=== PATIENT | male | born 1935 | race Two or more races ===

== ENCOUNTER 2017-10-28 05:27 | Day surgery (SDC) | payer OTHER ==
[2017-10-20 13:43] VITALS: BMI 22.1
[2017-10-28] MEDS ORDERED: PROPOFOL 20 ML ONE ×4 (13:04)
[2017-10-28] MEDS ORDERED: LIDOCAINE HCL 2% JELLY (5 ML/TUBE) ONE (13:04)
[2017-10-28] MEDS ORDERED: MIDAZOLAM HCL 2 MG/2 ML SINGLE DOSE VIAL ONE (13:04)
[2017-10-28] MEDS ORDERED: HEPARIN NA (PORCINE) 5,000 UNITS/ML 1ML VIAL ONE (13:29)
--- NOTE | 2017-10-28 13:36 | HP ---
Satellite [facility] - Chief Complaint History of Present Illness: 82 year old man with chronic kidney disease. He had a basilic vein fistula created in the left arm in 2013 but never went on dialysis and never returned for follow-up. The fistula failed. he is now in need of AV access for worsening renal function. History Source: Patient, Medical Record - Past Medical History Allergies/Adverse Reactions: Allergies Allergy/AdvReac Type Severity Reaction Status Date / Time corn [[place]] Allergy "ITCHY ALL Verified 10/28/17 12:26 OVER" No Known Drug Allergies Allergy Verified 10/28/17 12:26 Cardiovascular: Yes: CAD, HTN Renal/: Yes: Renal Inusuff - Current Medications Current Medications: Home Medications Medication Instructions Recorded Amlodipine Besylate [Norvasc -] 10 mg PO DAILY 08/07/14 Furosemide [Lasix -] 20 mg PO DAILY 08/07/14 Losartan Potassium [Cozaar] 100 mg PO DAILY 08/07/14 Ranolazine [Ranexa] 500 mg PO BID 08/07/14 Simvastatin [Zocor -] 20 mg PO HS 08/07/14 Aspirin [ASA -] 325 mg PO DAILY 10/20/17 Insulin Glargine,Hum.rec.anlog 15 units SQ DAILY 10/20/17 [Lantus Solostar PEN (NF)] Lisinopril 10 mg PO DAILY 10/20/17 Satellite Physical Exam - Physical Examination Vital Signs: Vital Signs Period Temp Pulse Resp BP Sys/Parekh Pulse Ox Last 24 Hr 97.8 F 82 20 147/64 99 General Appearance: Well Developed, Alert & Oriented x3 ENT: Clear Lung: Clear to auscultation Heart: Regular rate & rhythm Abdomen: Soft Extremities: No edema Satellite Impression/Plan - Impression/Plan Impression: Renal failure. Operative Procedure: Placement AV graft left arm Date to be Performed: 10/28/17
[2017-10-28] MEDS ORDERED: LIDOCAINE HCL 1%, 10 MG/ML (20ML VIAL) ONE (13:55)
[2017-10-28] MEDS ORDERED: HEPARIN NA (PORCINE) 5,000 UNITS/ML 1ML VIAL SQ ONE (14:18)
[2017-10-28] MEDS ORDERED: ACETAMINOPHEN 325 MG TABLET (FP) PO PRN (15:50)
--- NOTE | 2017-10-28 15:50 | OP ---
Operative Note - Note: Operative Date: 10/28/17 Pre-Operative Diagnosis: Renal failure Operation: Placement AV graft left arm. Findings: Scarred axilla with small axillary vein. Implants: 4-7 mm Propaten Post-Operative Diagnosis: Same as Pre-op Surgeon: Singh Alvarenga Anesthesiologist/DIE INSPECTOR: Otis Moran Anesthesia: Fractional Estimated Blood Loss (mls): 50
[2017-10-28] MEDS ORDERED: ONDANSETRON 4 MG/2 ML VIAL IVPUSH PRN (15:56)
[2017-10-28] MEDS ORDERED: LACTATED RINGERS SOLUTION 1,000 ML IV SCH (16:00)
[2017-10-28 16:45] VITALS: TEMP 98.1
[2017-10-28 17:30] VITALS: BP 144/90; PULSE 76
--- NOTE | 2017-10-31 16:05 | OP ---
DATE OF OPERATION: 10/28/2017 PROCEDURE: Placement of arteriovenous fistula graft left arm. PREOPERATIVE DIAGNOSIS: Renal failure. POSTOPERATIVE DIAGNOSIS: Renal failure. ANESTHESIA: Fractional. ANESTHESIOLOGIST: Farrukh. FLAME CHANNELER: OPERATIVE FINDINGS: The left axillary vein was of small caliber with surrounding scar tissue from previous surgery. The axillary artery was normal caliber with good pulse. PROCEDURE IN DETAIL: Following routine patient identification with site and side verification, intravenous sedation was established. The left arm, chest wall and axilla were prepped with ChloraPrep. Xylocaine 1% was infiltrated in the left axilla through the old scar. The wound was opened with a longitudinal incision measuring approximately 3 cm. Subcutaneous tissues were divided using cautery for hemostasis. Deep dissection allowed identification of the axillary vein which was carefully dissected free. Side branches were ligated with silk ties and divided. The vein was encircled proximally and distally with Vesseloops. The adjacent axillary artery was then freed with care not to damage the median nerve. The artery was encircled with Vesseloops. Small side branches were ligated with silk ties and divided. A counter incision was then made proximal to the elbow on the anterior aspect of the arm after infiltrating lidocaine. A curved metal tunneler was passed on the medial and lateral aspects of the arm between the 2 incisions and a 4-7 mm Propaten graft was passed through the tunnel with care not to twist it. The axillary artery was then occluded with Vesseloops and open on its exposed surface with a 6-mm arteriotome. The small end of the graft was beveled and anastomosed to the side of the artery with running suture of 6-0 Prolene. Prior to completion of the suture line the artery was allowed to backbleed and flush and the graft was occluded with a clamp. The suture line was completed and the vessel was released. Bleeding from the suture line was controlled with Surgicel. The graft as allowed to fill with blood to make sure it was not kinked. It was reoccluded and drained of the blood. The vein was then occluded with a small bulldog clamp proximally and a Vesseloops distally. A longitudinal venotomy measuring approximately 15 mm was made. The vein was flushed with heparin solution. The end of the graft was beveled and anastomosed to the side of the vein with running suture of 6-0 Prolene. Prior to completion of the suture line, the graft was allowed to flush and the vein was allowed to backbleed and was flushed with heparin solution. Suture line was completed and all vessels were released. There was good flow through the graft with a palpable pulse in the graft. Surgicel was applied to the suture lines and when hemostasis was achieved, the wounds were irrigated and closed with interrupted suture of 3-0 Vicryl on the subcutaneous tissue and the skin with mateo. Sterile dressings were applied and the patient was taken to the recovery room in stable condition. YOSELIN ALFONSO M.D. [id number]
== END 2017-10-28 17:30 | disposition home or self-care (01) ==
LOC: JASU-SURG 05:27
PROVIDERS: ATTEND Surgery
PROC: 03160JD Bypass Left Axillary Artery to Upper Arm Vein with Synthetic Substitute, Open Approach (ICD-10-PCS; principal; 2017-10-28 13:00)
DX: I12.9 Hypertensive chronic kidney disease with stage 1 through stage 4 chronic kidney disease, or unspecified chronic kidney disease (principal)
CPT/HCPCS: 36415; 84132; 94760; J1644

== ENCOUNTER 2017-11-04 11:07 | Emergency (ER) | payer OTHER ==
[2017-11-04 11:29] VITALS: BMI 22.1
--- NOTE | 2017-11-04 13:17 | PDOC ---
History of Present Illness - General History Source: Patient Exam Limitations: No Limitations - History of Present Illness Initial Comments: 11/04/17 15:21 The patient is a 82 year old male, with a significant past medical history of hypertension, diabetes, ESRD, and anemia, who presents to the emergency department with left arm swelling and itching s/p left arm AV fistula surgery on 10/28/17. The patient reports his swelling began on 10/31/17, primarily from the distal LLE. He reports associated itching and tightness in the left arm. Patient has been on Oxycodone for pain management since the surgery. Patient reports several episodes of nausea and vomiting(nonbloody/nonbilious), today, but denies any abdominal pain, cp, diarrhea, or constipation. Patient states he has been unable to tolerate solids or fluids p.o. He denies any fever, chills, cough, headache, or dizziness. He denies any chest pain, shortness of breath, diaphoresis, or palpitations. He denies any recent trauma, travel, or sick contacts. Allergies: NKDA Past Surgical History: AV fistula placement, Hernia repair Social History: Former smoker. Former ETOH use. No recreational drug use. Surgeon: Dr. Alvarenga <Bernard Guzman - Last Filed: 11/04/17 16:35> <Shekhar Calvillo - Last Filed: 11/04/17 17:12> - General Chief Complaint: Nausea/Vomiting Stated Complaint: POST SURG/ VOMITING Time Seen by Provider: 11/04/17 12:55 Past History <Bernard Guzman - Last Filed: 11/04/17 16:35> - Past Medical History Anemia: Yes Asthma: No Cancer: No Cardiac Disorders: No CVA: No COPD: No CHF: No DVT: No Dementia: No Diabetes: Yes GI Disorders: Yes (ESRD) Disorders: No HTN: Yes Hypercholesterolemia: No Liver Disease: No Seizures: No Thyroid Disease: No - Surgical History Abdominal Surgery: Yes (HERNIA REPAIR) Appendectomy: No Cardiac Surgery: No Cholecystectomy: No Lung Surgery: No Neurologic Surgery: No Orthopedic Surgery: Yes - Immunization History Immunization Up to Date: Yes - Suicide/Smoking/Psychosocial Hx Smoking History: Former smoker Have you smoked in the past 12 months: No If you are a former smoker, when did you quit?: 1977 Information on smoking cessation initiated: No Hx Alcohol Use: No Drug/Substance Use Hx: No Substance Use Type: Alcohol Hx Substance Use Treatment: No <Shekhar Calvillo - Last Filed: 11/04/17 17:12> - Past Medical History Allergies/Adverse Reactions: Allergies Allergy/AdvReac Type Severity Reaction Status Date / Time corn [[place]] Allergy "ITCHY ALL Verified 11/04/17 11:25 OVER" No Known Drug Allergies Allergy Verified 11/04/17 11:25 Home Medications: Ambulatory Orders Amlodipine Besylate [Norvasc -] 10 mg PO DAILY 08/07/14 Furosemide [Lasix -] 20 mg PO DAILY 08/07/14 Losartan Potassium [Cozaar] 100 mg PO DAILY 08/07/14 Ranolazine [Ranexa] 500 mg PO BID 08/07/14 Simvastatin [Zocor -] 20 mg PO HS 08/07/14 Aspirin [ASA -] 325 mg PO DAILY 10/20/17 Insulin Glargine,Hum.rec.anlog [Lantus Solostar PEN (NF)] 15 units SQ DAILY 10/25 Lisinopril 10 mg PO DAILY 10/20/17 Oxycodone HCl/Acetaminophen [Percocet 5-325 mg Tablet] 1 tab PO Q6H PRN #16 tablet MDD 4 10/28/17 Review of Systems - Review of Systems Able to Perform ROS?: Yes Comments:: 11/04/17 15:21 CONSTITUTIONAL No reported: Fever, Chills, Diaphoresis, Generalized Weakness, Malaise, Loss of Appetite HEENT: No reported: Rhinorrhea, Nasal Congestion, Throat Pain, Throat Swelling, Difficulty Swallowing, Mouth Swelling, Ear Pain, Eye Pain, Visual Changes CARDIOVASCULAR: No reported: Chest Pain, Syncope, Palpitations, Irregular Heart Rate, Lightheadedness, Peripheral Edema RESPIRATORY: No reported: Cough, Shortness of Breath, SOB with Exertion, Orthopnea, Wheezing , Stridor, Hemoptysis GASTROINTESTINAL: Present: Nausea, Vomiting No reported: Abdominal pain, Abdominal Distension, Diarrhea, Constipation, Melena, Hematochezia GENITOURINARY: No reported: Dysuria, Frequency, Urgency, Hesitancy, Flank Pain, Genital Pain MUSCULOSKELETAL: Present: Left arm swelling/itching/tightness No reported: Myalgia, Arthralgia, Back pain, Neck Pain SKIN: Present: Left arm itching No reported: Rash, Pallor HEMEATOLOGIC/IMMUNOLOGIC: No reported: Easy Bleeding, Easy Bruising, Lymphadenopathy, Frequent infections ENDOCRINE: No reported: Unexplained Weight Gain, Unexplained Weight Loss, Heat Intolerance , Cold Intolerance <Guzman,Giomilsy - Last Filed: 11/04/17 16:35> *Physical Exam - Vital Signs Last Vital Signs Temp Pulse Resp BP Pulse Ox 97.4 F L 95 H 16 143/74 100 11/04/17 11:26 11/04/17 11:26 11/04/17 11:11/04/17 11:11/04/17 11:26 - Physical Exam Comments: 11/04/17 15:21 GENERAL: The patient is awake, alert, and fully oriented, Nontoxic - in no acute distress. HEAD: Normocephalic, atraumatic. EYES: extraocular movements intact, sclera anicteric, conjunctiva clear. ENT: Normal voice, Moist mucous membranes. NECK: Normal range of motion, supple LUNGS: Breath sounds equal, clear to auscultation bilaterally. No wheezes, no rhonchi, no rales. HEART: Regular rate and rhythm, normal S1 and S2 without murmur, rub or gallop. ABDOMEN: Soft, nontender, normoactive bowel sounds. No guarding, no rebound. EXTREMITIES: +1 edema in the LUE, pulses symmetric, no erythema or warmth, mateo in place in ac/fossa, thrill present in RUE, no pitting edema. NEUROLOGICAL: No facial assymetry, Normal speech, PSYCH: Normal mood, normal affect. SKIN: Warm, Dry, normal turgor, <Guzman,Giomilsy - Last Filed: 11/04/17 16:35> - Vital Signs Last Vital Signs Temp Pulse Resp BP Pulse Ox 97.4 F L 95 H 16 143/74 100 11/04/17 11:26 11/04/17 11:26 11/04/17 11:26 11/04/17 11:26 11/04/17 11:26 <Shekhar Calvillo - Last Filed: 11/04/17 17:12> Heart Score/ECG Review - ECG Impressions Comment:: 11/04/17 15:41 Twelve-lead EKG was performed and reviewed by me. There is normal sinus rhythm with a normal rate. rate of 86 The intervals are normal. Nonspecific intraventricular block <Shekhar Calvillo - Last Filed: 11/04/17 17:12> ED Treatment Course - LABORATORY CBC & Chemistry Diagram: 11/04/17 13:56 11/04/17 13:56 - ADDITIONAL ORDERS Additional order review: Laboratory Results 11/04/17 13:56 Sodium 136 Potassium 5.2 H Chloride 103 Carbon Dioxide 20 L Anion Gap 13 BUN 76 H D Creatinine 7.5 H* Creat Clearance w eGFR 7.01 Random Glucose 204 H D Calcium 8.5 Phosphorus 4.7 Magnesium 2.2 Total Bilirubin 0.4 D AST 12 L D ALT 10 L Alkaline Phosphatase 89 Total Protein 6.7 Albumin 2.9 L 11/04/17 13:56 RBC 2.71 L MCV 96.1 H MCHC 32.1 RDW 13.0 MPV 8.4 Neutrophils % 85.7 H D Lymphocytes % 6.1 L D Monocytes % 7.5 Eosinophils % 0.1 D Basophils % 0.6 - RADIOLOGY Radiograph Interpretation: 11/04/17 16:35 EXAM: US Duplex Vascular US-1 arm(left) INTERPRETED BY: Dr. Ballard REVIEWED BY: Dr. Calvillo IMPRESSION: Nonocclusive thrombus within the left brachial vein. Please see discussion- Nonocclusive thrombus is identified within the brachial vein. Minimal flow is seen within this vessel. The internal jugular, subclavian, axillary, radial and ulnar veins are patent. There is a patent AV dialysis graft present within the forearm. EXAM: CXR INTERPRETED BY: Dr. Rogers REVIEWED BY: Dr. Calvillo IMPRESSION: The cardiac silhouettes within normal limits in size with mild unfolding of the aortic arch. Mild elevation of the right hemidiaphragm. The lung is clear. Mediastinum is osseous structures appear intact. There are multiple surgical metallic clips in the left axilla and arm as well as in the left upper abdomen - Medications Given in the ED: ED Medications Discontinued Medications Generic Name Dose Route Start Last Admin Trade Name Freq PRN Reason Stop Dose Admin Ondansetron HCl 4 mg 11/04/17 13:21 11/04/17 13:56 Zofran Injection IVPB 11/04/17 13:22 4 mg ONCE ONE Administration <Bernard Guzman - Last Filed: 11/04/17 16:35> - LABORATORY CBC & Chemistry Diagram: 11/04/17 13:56 11/04/17 13:56 <Shekhar Calvillo - Last Filed: 11/04/17 17:12> Medical Decision Making - Medical Decision Making 11/04/17 16:39 Multiple calls placed to Dr. Alvarenga's office/service at 16:20, 16:30, and 16 :35 with no response. First call placed to Dr. Petty at 16:36. Awaiting call back. Case discussed with Dr. Petty at 16:37. <Bernard Guzman - Last Filed: 11/04/17 16:35> - Medical Decision Making 11/04/17 13:33 82y F hx of dm, htn, presents with arm swelling s/p new fistula placed by dr. alvarenga last thursday (next fu is 11/10). pt also complaining of nausea/ vomiting x 5 nbnb, last episode was 30 min ago. denies any f/c, dirarhea, cp, sob, cough, hemoptysis, leg swelling. On exam the patient appears well, in no acute distress Patient does have +1 edema in the distal left arm, with no signs of infection Patient is otherwise has a normal exam with no signs of fluid overload, tingling edema, lungs are clear normal cardiac exam. Differential for the patient's swelling includes postsurgical edema, DVT Will obtain ultrasound to rule out DVT Will obtain blood work to rule out metabolic derangements, uremia as a cause of the patient's nausea EKG to screen for hyperkalemia, acute coronary syndrome however this is unlikely due to the patient's lack of respiratory cardiac complaints. 11/04/17 14:08 A portion of this note was documented by scribe services under my direction. I have reviewed the details of the note, within reason, and agree with the documentation with the following case summary and management plan written by me 11/04/17 15:46 the pts labs were reviewed K stable from 10/28 Cr and BUn slightly elevated from previously case dw dr. arriaga - states if pt feels well, and asypmtomatic can fu as outpatient next week but if he is persistently nausueswe will keep him for dialysis 11/04/17 16:25 pts US noted for nonoclusive thrombus in the bracial vein with minimal flow karlos notify dr. Alvarenga 11/04/17 16:57 dr. petty covering for dr. alvarenga - here seeing the pt bedside - will discuss with dr. cline regarding whether to treat nonocclusive thrombus 11/04/17 17:[address] salas - states pt has known thrombosed graft, susupects this is related - proximal is patent, will recommend no a/c and erquetss fu with dr. alvarenga as sceduled next week. I discussed the physical exam findings, ancillary test results and final diagnoses with the patient. I answered all of the patient's questions. The patient was satisfied with the care received and felt comfortable with the discharge plan and treatment plan. The patient will call their primary care physician within 24 hours to arrange follow-up and will return to the Emergency Department with any new, persistent or worsening symptoms. <Shekhar Calvillo - Last Filed: 11/04/17 17:12> *DC/Admit/Observation/Transfer - Attestations Scribe Attestion: 11/04/17 15:21 Documentation prepared by Bernard Guzman, acting as medical lab technologist for Shekhar Calvillo MD. <Bernard Guzman - Last Filed: 11/04/17 16:35> - Discharge Dispostion Admit: No <Shekhar Calvillo - Last Filed: 11/04/17 17:12> Diagnosis at time of Disposition: Postoperative non-occlusive thrombus Chronic kidney disease Qualifiers: Chronic kidney disease stage: unspecified stage Qualified Code(s): N18.9 - Chronic kidney disease, unspecified - Discharge Dispostion Disposition: HOME Condition at time of disposition: Improved - Referrals Referrals: Singh Alvarenga MD [Staff Physician] - Ciro Arriaga MD [Staff Physician] - - Patient Instructions Printed Discharge Instructions: DI for Deep Vein Thrombosis Additional Instructions: Return to the emergency department immediately with ANY new, persistent or worsening symptoms including worsening swelling of your arm, numbness/tingling/ weakness, shortness of breath, chest pain increased pain or other concerns. Please see Dr. Alvarenga as scheduled next week. Dr. Giles office will call ou to schedule a visit for next week. You MUST call and follow up with your doctor tomorrow for further evaluation of your symptoms. Results were discussed with you. Please make sure your doctor reviews the results of your emergency evaluation. Print Language: POLISH
[2017-11-04] MEDS ORDERED: ONDANSETRON 4 MG/2 ML VIAL IVPB ONE (13:21)
[2017-11-04] MEDS ORDERED: ONDANSETRON 4 MG/2 ML VIAL ONE (13:51)
[2017-11-04 14:08] LABS: BASO # 0.1 #; BASO % 0.6 % (0-2.0); EOS % 0.1 % (0-4.5); LYMPH # 0.7; MCH 30.9 pg (25.7-33.7); MCHC 32.1 g/dl (32.0-35.9); MEAN CELL VOLUME 96.1 fl (80-96); MEAN PLT VOLUME 8.4 fl (7.5-11.1); MONO # 0.8 #; NEUT # 9.5 #; NEUT % 85.7 % (42.8-82.8); PLATELET COUNT 411 K/MM3 (134-434)
[2017-11-04 14:31] LABS: ALBUMIN 2.9 g/dl (3.4-5.0); ANION GAP 13 (8-16); BILIRUBIN,TOTAL 0.4 mg/dL (0.2-1.0); CALCIUM 8.5 mg/dL (8.5-10.1); CO2 20 mmol/L (21-32); GLUCOSE,RANDOM 204 mg/dL (74-106); MAGNESIUM 2.2 mg/dL (1.8-2.4); PHOSPHOROUS 4.7 mg/dL (2.5-4.9); SGOT/AST 12 U/L (15-37); SGPT/ALT 10 U/L (12-78); TOT PROT 6.7 g/dl (6.4-8.2)
[2017-11-04 14:37] LABS: ALK PHOS 89 U/L (45-117)
[2017-11-04 15:06] LABS: CREATININE 7.5 mg/dL (0.7-1.3)
[2017-11-04 17:00] VITALS: BP 163/75; PULSE 80; TEMP 98.7
--- NOTE | 2017-11-04 17:12 | PN ---
Progress Note (short form) - Note Progress Note: Vascular Surgery Pt seen and examined. AVG placement 10/28 Good bruit and thrill. Pt has swelling of left arm. Could be from central vein stenosis. Ultrasound shows patent avg with good outflow. There is a non occlusive thrombus in brachial vein, prob from old thrombosed basilic vein fistula. Pt will follow up with dr. springer on thursday for staple removal. Berry Garcia DO
--- NOTE | 2017-11-05 13:07 | EKG ---
Test Reason : Blood Pressure : / mmHG Vent. Rate : 086 BPM Atrial Rate : 086 BPM P-R Int : 166 ms QRS Dur : 126 ms QT Int : 388 ms P-R-T Axes : 046 -26 069 degrees QTc Int : 464 ms NORMAL SINUS RHYTHM NON-SPECIFIC INTRA-VENTRICULAR CONDUCTION BLOCK ABNORMAL ECG WHEN COMPARED WITH ECG OF 20-OCT-2017 14:15, NON-SPECIFIC CHANGE IN ST SEGMENT IN INFERIOR LEADS Confirmed by NICK VELIZ, ANNAMARIA ([id number]) on 11/05/2017 1:07:26 PM Referred By: Confirmed By:ANNAMARIA ROMERO MD
== END 2017-11-04 17:36 | disposition home or self-care (01) ==
LOC: JER 11:07
DX: T82.868A Thrombosis due to vascular prosthetic devices, implants and grafts, initial encounter (principal); I82.622 Acute embolism and thrombosis of deep veins of left upper extremity; I12.0 Hypertensive chronic kidney disease with stage 5 chronic kidney disease or end stage renal disease; E11.22 Type 2 diabetes mellitus with diabetic chronic kidney disease; N18.6 End stage renal disease; N17.8 Other acute kidney failure; Z79.84 Long term (current) use of oral hypoglycemic drugs
CPT/HCPCS: 36415; 71010-TC; 80053; 83735; 84100; 85025; 93005; 93010; 93971; 99284-25

== ENCOUNTER 2017-11-25 13:47 | Inpatient (IN) | payer OTHER ==
[2017-11-25 14:02] VITALS: BMI 22.6
--- NOTE | 2017-11-25 20:09 | PDOC ---
History of Present Illness - General Chief Complaint: Revisit, Lab Variance Stated Complaint: PCP SENT Time Seen by Provider: 11/25/17 20:01 - History of Present Illness Initial Comments: 11/25/17 20:08 CHIEF COMPLAINT: admit for dialysis tomorrow per Dr. García HISTORY OF PRESENT ILLNESS: 82 yo M with PMH of HTN, diabetes, ESRD, and anemia sent in by patient care associate MD Shiloh Brand for admission due to JOAN on CKD. Patient is to be admitted for dialysis beginning tomorrow morning. Patient currently denies any symptoms but reports that "I have this on my arm", referring to a fistula that was placed last month. He denies any pain to the site of fistula. PAST MEDICAL HISTORY: Denies past medical history FAMILY HISTORY: Denies SOCIAL HISTORY: Denies tobacco, alcohol, illicit drug use. SURGICAL HISTORY: Denies PCP: Flip Hanna ALLERGIES: No known drug allergies REVIEW OF SYSTEMS General/Constitutional: Denies fever or chills. Denies weakness, weight change. HEENT: Denies change in vision. Denies ear pain or discharge. Denies sore throat. Cardiovascular: Denies chest pain or shortness of breath. Respiratory: Denies cough, wheezing, or hemoptysis. Gastrointestinal: Denies nausea, vomiting, diarrhea or constipation. Denies rectal bleeding. Genitourinary: Denies dysuria, frequency, or change in urination. Musculoskeletal: Denies joint or muscle swelling or pain. Denies neck or back pain. Skin: Denies rash or easy bruising. Neurologic: Denies headache, vertigo, loss of consciousness, or loss of sensation. PHYSICAL EXAM General Appearance: Well-appearing, appropriately dressed. No apparent distress , no intoxication. HEENT: EOMI, PERRLA, normal ENT inspection, normal voice, TMs normal, pharynx normal. No conjunctival pallor. No photophobia, scleral icterus. Neck: Supple. Trachea midline. No tenderness, rigidity, carotid bruit, stridor , lymphadenopathy, or thyromegaly. Respiratory/Chest: Lungs CTAB. No shortness of breath, chest tenderness, respiratory distress, accessory muscle use. No crackles, rales, rhonchi, stridor , wheezing, dullness Cardiovascular: RRR. S1, S2. Vascular Pulses: Dorsalis-Pedis (R): 2+, Dorsalis-Pedis (L): 2+ Gastrointestinal/Abdominal: Normal bowel sounds. Abdomen soft, non-distended. No tenderness or rebound tenderness. No organomegaly, pulsatile mass, guarding , hernia, hepatomegaly, splenomegaly. Musculoskeletal/Extremities: L brachial AV fistula, no swelling or tenderness. Normal inspection. FROM of all extremities, normal capillary refill. Pelvis Stable. No CVA tenderness. No tenderness to extremities, pedal edema, swelling , erythema or deformity. Integumentary: Appropriate color, dry, warm. No cyanosis, erythema, jaundice or rash Neurologic: machine container washer II-XII intact. Fully oriented, alert. Appropriate mood/affect. Motor strength 5/5. No appreciable EOM palsy, facial droop or sensory deficit. Past History - Past Medical History Allergies/Adverse Reactions: Allergies Allergy/AdvReac Type Severity Reaction Status Date / Time corn [[place]] Allergy "ITCHY ALL Verified 11/25/17 14:02 OVER" No Known Drug Allergies Allergy Verified 11/25/17 14:02 Home Medications: Ambulatory Orders Amlodipine Besylate [Norvasc -] 10 mg PO DAILY 08/07/14 Furosemide [Lasix -] 20 mg PO DAILY 08/07/14 Losartan Potassium [Cozaar] 100 mg PO DAILY 08/07/14 Ranolazine [Ranexa] 500 mg PO BID 08/07/14 Simvastatin [Zocor -] 20 mg PO HS 08/07/14 Aspirin [ASA -] 325 mg PO DAILY 10/20/17 Insulin Glargine,Hum.rec.anlog [Lantus Solostar PEN (NF)] 15 units SQ DAILY 10/25 Lisinopril 10 mg PO DAILY 10/20/17 Oxycodone HCl/Acetaminophen [Percocet 5-325 mg Tablet] 1 tab PO Q6H PRN #16 tablet MDD 4 10/28/17 Anemia: Yes Asthma: No Cancer: No Cardiac Disorders: No CVA: No COPD: No CHF: No DVT: No Dementia: No Diabetes: Yes GI Disorders: Yes (ESRD) Disorders: No HTN: Yes Hypercholesterolemia: No Liver Disease: No Seizures: No Thyroid Disease: No - Surgical History Abdominal Surgery: Yes (HERNIA REPAIR) Appendectomy: No Cardiac Surgery: No Cholecystectomy: No Lung Surgery: No Neurologic Surgery: No Orthopedic Surgery: Yes - Immunization History Immunization Up to Date: Yes - Suicide/Smoking/Psychosocial Hx Smoking History: Former smoker Have you smoked in the past 12 months: No If you are a former smoker, when did you quit?: 25 YRS Information on smoking cessation initiated: No Hx Alcohol Use: No Drug/Substance Use Hx: No Substance Use Type: None Hx Substance Use Treatment: No *Physical Exam - Vital Signs Last Vital Signs Temp Pulse Resp BP Pulse Ox 98.3 F 77 20 141/56 100 11/25/17 13:59 11/25/17 13:59 11/25/17 13:59 11/25/17 13:59 11/25/17 13:59 ED Treatment Course - LABORATORY CBC & Chemistry Diagram: 11/25/17 23:20 11/25/17 23:20 Medical Decision Making - Medical Decision Making 11/25/17 20:27 82 yo M with PMH of HTN, diabetes, ESRD, and anemia sent in by patient care associate MD Shiloh Brand for admission to start dialysis tomorrow morning. -cbc, cmp -ekg *DC/Admit/Observation/Transfer Diagnosis at time of Disposition: ESRD (end stage renal disease) - Discharge Dispostion Condition at time of disposition: Stable Admit: Yes - Referrals - Patient Instructions - Post Discharge Activity
--- NOTE | 2017-11-25 20:12 | PDOC ---
*Physical Exam - Vital Signs Last Vital Signs Temp Pulse Resp BP Pulse Ox 98.3 F 77 20 141/56 100 11/25/17 13:59 11/25/17 13:59 11/25/17 13:59 11/25/17 13:59 11/25/17 13:59 ED Treatment Course - LABORATORY CBC & Chemistry Diagram: 11/26/17 11:50 11/26/17 11:50 Medical Decision Making - Medical Decision Making 11/25/17 20:11 agree with care from YOLANDE Godoy *DC/Admit/Observation/Transfer Diagnosis at time of Disposition: ESRD (end stage renal disease) - Discharge Dispostion Condition at time of disposition: Stable - Referrals - Patient Instructions - Post Discharge Activity
[2017-11-25 23:30] LABS: BASO % 1.1 % (0-2.0); EOS % 3.4 % (0-4.5); HEMOGLOBIN 8.5 GM/dL (11.7-16.9); LYMPH % 19.8 % (8-40); MCH 32.4 pg (25.7-33.7); MCHC 32.8 g/dl (32.0-35.9); MEAN CELL VOLUME 98.6 fl (80-96); MEAN PLT VOLUME 9.7 fl (7.5-11.1); MONO % 13.6 % (3.8-10.2); NEUT % 62.1 % (42.8-82.8); PLATELET COUNT 322 K/MM3 (134-434); RBC 2.63 M/mm3 (4.00-5.60); RDW 13.3 % (11.9-15.9); WHITE BLOOD COUNT 9.9 K/mm3 (4.0-10.0)
[2017-11-26 00:03] LABS: ALBUMIN 3.2 g/dl (3.4-5.0); ANION GAP 9 (8-16); BILIRUBIN,TOTAL 0.5 mg/dL (0.2-1.0); BLOOD UREA NITROGEN 57 mg/dL (7-18); CALCIUM 8.3 mg/dL (8.5-10.1); CHLORIDE 105 mmol/L (98-107); CO2 23 mmol/L (21-32); GLUCOSE,RANDOM 171 mg/dL (74-106); POTASSIUM 5.1 mmol/L (3.5-5.1); SGOT/AST 10 U/L (15-37); SGPT/ALT 14 U/L (12-78); SODIUM 137 mmol/L (136-145); TOT PROT 7.1 g/dl (6.4-8.2)
[2017-11-26 00:09] LABS: ALK PHOS 94 U/L (45-117)
[2017-11-26 00:11] LABS: CREATININE 7.6 mg/dL (0.7-1.3)
--- NOTE | 2017-11-26 02:51 | HP ---
CHIEF COMPLAINT: sent by secretary office clerk for HD tomorrow PCP: Dr. Flip Hanna HISTORY OF PRESENT ILLNESS: Pt is an 82 y/o M poor historian with PMH DM, ESRD, anemia, HTN, and kidney surgery (pt does not know what was done) who was sent to ED by secretary office clerk for admission to have HD tomorrow. Pt states he has never had HD before, but he has an AV fistula in the left arm. Per records, pt had a Library Assistant of 7.5 in Oct. Pt states he does make urine. Pt has no complaints at this time. Denies headache, nausea, vomiting, diarrhea, fever, chills, swelling, cough, dizziness. ER course was notable for: (1) Hb 8.5, Library Assistant 7.6, Hep panel pending (2) EKG with LAFB, delayed R wave transition, and widened QRS (3) Recent Travel: [place] PAST MEDICAL HISTORY: DM, ESRD, anemia, HTN PAST SURGICAL HISTORY: L AV fistula. horizontal surgical scar at neck, ? thyroid procedure, abdominal laparotomy scar, ? laparoscopy scars. Pt unable to provide history of surgeries Social History: Smokin cig/d from 21 y/o. quit in 1977 Alcohol: 3 glasses of wine/d once weekly Drugs: denies Family History: denies Allergies corn [Java] Allergy (Verified 11/25/17 14:02) "ITCHY ALL OVER" CORN No Known Drug Allergies Allergy (Verified 11/25/17 14:02) HOME MEDICATIONS: Home Medications Medication Instructions Recorded Amlodipine Besylate [Norvasc -] 10 mg PO DAILY 08/07/14 Furosemide [Lasix -] 20 mg PO DAILY 08/07/14 Losartan Potassium [Cozaar] 100 mg PO DAILY 08/07/14 Ranolazine [Ranexa] 500 mg PO BID 08/07/14 Simvastatin [Zocor -] 20 mg PO HS 08/07/14 Aspirin [ASA -] 325 mg PO DAILY 10/20/17 Insulin Glargine,Hum.rec.anlog 15 units SQ DAILY 10/20/17 [Lantus Solostar PEN (NF)] Lisinopril 10 mg PO DAILY 10/20/17 Oxycodone HCl/Acetaminophen 1 tab PO Q6H PRN #16 tablet MDD 4 10/28/17 [Percocet 5-325 mg Tablet] REVIEW OF SYSTEMS CONSTITUTIONAL: Absent: fever, chills, diaphoresis, generalized weakness, malaise, loss of appetite, weight change HEENT: Absent: rhinorrhea, nasal congestion, throat pain, throat swelling, difficulty swallowing, mouth swelling, ear pain, eye pain, visual changes CARDIOVASCULAR: Absent: chest pain, syncope, palpitations, irregular heart rate, lightheadedness , peripheral edema RESPIRATORY: Absent: cough, shortness of breath, dyspnea with exertion, orthopnea, wheezing, stridor, hemoptysis GASTROINTESTINAL: Absent: abdominal pain, abdominal distension, nausea, vomiting, diarrhea, constipation, melena, hematochezia GENITOURINARY: Absent: dysuria, frequency, urgency, hesitancy, hematuria, flank pain, genital pain MUSCULOSKELETAL: Absent: myalgia, arthralgia, joint swelling, back pain, neck pain SKIN: Absent: rash, itching, pallor HEMATOLOGIC/IMMUNOLOGIC: Absent: easy bleeding, easy bruising, lymphadenopathy, frequent infections ENDOCRINE: Absent: unexplained weight gain, unexplained weight loss, heat intolerance, cold intolerance NEUROLOGIC: Absent: headache, focal weakness or paresthesias, dizziness, unsteady gait, seizure, mental status changes, bladder or bowel incontinence PSYCHIATRIC: Absent: anxiety, depression, suicidal or homicidal ideation, hallucinations. PHYSICAL EXAMINATION Vital Signs - 24 hr 11/25/17 11/26/17 13:59 00:39 Temperature 98.3 F Pulse Rate 77 Respiratory 20 Rate Blood Pressure 141/56 O2 Sat by Pulse 100 98 Oximetry (%) GENERAL: Awake, alert, and fully oriented, in no acute distress. HEAD: Normal with no signs of trauma. EYES: Pupils equal, round and reactive to light, extraocular movements intact, sclera anicteric, conjunctiva clear. No lid lag. EARS, NOSE, THROAT: oropharynx clear without exudates. Moist mucous membranes. NECK: Normal range of motion, supple without lymphadenopathy, JVD, or masses. LUNGS: Breath sounds equal, clear to auscultation bilaterally. No wheezes, and no crackles. No accessory muscle use. HEART: Regular rate and rhythm, normal preserved S1 and S2 with 4/6 cresc/ decresc syst murmur, rub or gallop. ABDOMEN: Soft, nontender, not distended, normoactive bowel sounds, no guarding, no rebound, no masses. No hepatomegaly or splenomegaly. MUSCULOSKELETAL: Normal range of motion at all joints. No bony deformities or tenderness. No CVA tenderness. UPPER EXTREMITIES: 2+ pulses, warm, well-perfused. No cyanosis. No clubbing. No peripheral edema. L arm with fistula with thrill. LOWER EXTREMITIES: 2+ pulses, warm, well-perfused. No calf tenderness. No peripheral edema. NEUROLOGICAL: Cranial nerves II-XII intact. Normal speech. gait not observed. PSYCHIATRIC: Cooperative. Good eye contact. Appropriate mood and affect. SKIN: Warm, dry, normal turgor, no rashes or lesions noted, normal capillary refill. Laboratory Results - last 24 hr 11/25/17 11/25/17 23:20 23:20 WBC 9.9 RBC 2.63 L Hgb 8.5 L Hct 26.0 L MCV 98.6 H MCH 32.4 MCHC 32.8 RDW 13.3 Plt Count 322 D MPV 9.7 D Neutrophils % 62.1 D Lymphocytes % 19.8 D Monocytes % 13.6 H D Eosinophils % 3.4 D Basophils % 1.1 Sodium 137 Potassium 5.1 Chloride 105 Carbon Dioxide 23 Anion Gap 9 BUN 57 H D Creatinine 7.6 H* Creat Clearance w eGFR 6.90 Random Glucose 171 H Calcium 8.3 L Total Bilirubin 0.5 D AST 10 L ALT 14 D Alkaline Phosphatase 94 Total Protein 7.1 Albumin 3.2 L ASSESSMENT/PLAN: Pt is an 82 y/o M with PMH ESRD who was sent by his secretary office clerk for admission to have dialysis tomorrow. #ESRD -Library Assistant 7.6 in ED (7.5 in office in Oct) -Consult nephrology #DM -glc 171 -ISS -BGM ACHS -Confirm meds with pharmacy in am as pt is unable to recall his medications #FEN -not on fluids. Due for HD -K 5.1. EKG benign. HD in am -Renal diet #PPx -Hep SubQ #Dispo -Obs Ruiz Cuenca MD PGY-1 IM Visit type - Emergency Visit Emergency Visit: Yes ED Registration Date: 11/26/17 Care time: The patient presented to the Emergency Department on the above date and was hospitalized for further evaluation of their emergent condition. - New Patient This patient is new to me today: Yes Date on this admission: 11/26/17 - Critical Care Critical Care patient: No
--- NOTE | 2017-11-26 02:51 | PN ---
Teaching Attending Note Name of Resident: Ruiz Cuenca ATTENDING PHYSICIAN STATEMENT I saw and evaluated the patient. I reviewed the resident's note and discussed the case with the resident. I agree with the resident's findings and plan as documented. SUBJECTIVE: 82 year old male with CKD referred for hospitalization by Dr García due to need for HD . Has no complaints OBJECTIVE: Vital Signs Temperature 98.3 F 11/25/17 13:59 Pulse Rate 77 11/25/17 13:59 Respiratory Rate 20 11/25/17 13:59 Blood Pressure 141/56 11/25/17 13:59 O2 Sat by Pulse Oximetry (%) 98 11/26/17 00:39 LUNGS: Breath sounds equal, clear to auscultation bilaterally. No wheezes, and no crackles. No accessory muscle use. HEART: Regular rate and rhythm, normal preserved S1 and S2 with 4/6 cresc/ decresc syst murmur, rub or gallop. ABDOMEN: Soft, nontender, not distended, normoactive bowel sounds, no guarding, no rebound, no masses. No hepatomegaly or splenomegaly. MUSCULOSKELETAL: Normal range of motion at all joints. No bony deformities or tenderness. No CVA tenderness. UPPER EXTREMITIES: 2+ pulses, warm, well-perfused. No cyanosis. No clubbing. No peripheral edema. L arm with fistula with thrill. LOWER EXTREMITIES: 2+ pulses, warm, well-perfused. No calf tenderness. No peripheral edema. CBC, BMP 11/25/17 23:20 11/25/17 23:20 Home Medication List Medication Instructions Recorded Confirmed Type Amlodipine Besylate [Norvasc -] 10 mg PO DAILY 08/07/14 11/04/17 History Furosemide [Lasix -] 20 mg PO DAILY 08/07/14 11/04/17 History Losartan Potassium [Cozaar] 100 mg PO DAILY 08/07/14 11/04/17 History Ranolazine [Ranexa] 500 mg PO BID 08/07/14 11/04/17 History Simvastatin [Zocor -] 20 mg PO HS 08/07/14 11/04/17 History Aspirin [ASA -] 325 mg PO DAILY 10/20/17 11/04/17 History Insulin Glargine,Hum.rec.anlog 15 units SQ DAILY 10/20/17 11/04/17 History [Lantus Solostar PEN (NF)] Lisinopril 10 mg PO DAILY 10/20/17 11/04/17 History Active Medications Generic Name Dose Route Start Last Admin Trade Name Abraham PRN Reason Stop Dose Admin Amlodipine Besylate 10 mg 11/26/17 10:00 Norvasc - PO DAILY [facility] Furosemide 20 mg 11/26/17 10:00 Lasix - PO DAILY [facility] Non-Formulary Medication 15 units 11/26/17 10:00 Insulin Glargine,Hum.Rec.Anlog SQ DAILY [facility] Non-Formulary Medication 100 mg 11/26/17 10:00 Losartan Potassium [Cozaar] PO DAILY [facility] Non-Formulary Medication 20 mg 11/26/17 22:00 Simvastatin PO HS [facility] Ranolazine 500 mg 11/26/17 10:00 Ranexa - PO BID [facility] ASSESSMENT AND PLAN: 1. ESRD - need for HD - to be initiated 2. Poor compliance with treatment 3. HTN - suboptimal control - c/w current meds 4. DM - dose of Lantus needs to be confirmed - insulin SS for now
[2017-11-26] MEDS: INSULIN SLIDING SCALE (NOVOLOG) 1 VIAL SQ SCH ×5 (06:43→23:55)
[2017-11-26] MEDS ORDERED: INSULIN DETEMIR 100 UNITS/ML MDV SQ ONE (06:46)
[2017-11-26] MEDS ORDERED: INSULIN DETEMIR 100 UNITS/ML MDV SQ SCH ×2 (07:00→16:41)
--- NOTE | 2017-11-26 07:00 | PN ---
<Huang Wasserman - Last Filed: 11/26/17 16:18> Physical Exam: SUBJECTIVE: Patient seen and examined at bed side. he denies any fever, chills, N/V/D/C. denies any abdominal pain, chest pain. OBJECTIVE: Vital Signs Period Temp Pulse Resp BP Sys/Parekh Pulse Ox Last 24 Hr 98.3 F 77 20 141/56 98-100 GENERAL: The patient is awake, alert, and fully oriented, in no acute distress. HEAD: Normal with no signs of trauma. EYES: sclera anicteric, conjunctiva clear. ENT: moist mucous membranes. NECK: supple. LUNGS: Breath sounds equal, clear to auscultation bilaterally, no wheezes, no crackles, no accessory muscle use. HEART: Regular rate and rhythm, S1, S2 without murmur, rub or gallop. ABDOMEN: Soft, nontender, nondistended, normoactive bowel sounds, no guarding, no rebound, EXTREMITIES: 2+ pulses, warm, well-perfused, no edema. right arm fistula in place. NEUROLOGICAL: no focal deficit , Normal speech, gait not observed. PSYCH: Normal mood, normal affect. SKIN: Warm, dry, no rashes or lesions noted Laboratory Results - last 24 hr 11/25/17 11/25/17 23:20 23:20 WBC 9.9 RBC 2.63 L Hgb 8.5 L Hct 26.0 L MCV 98.6 H MCH 32.4 MCHC 32.8 RDW 13.3 Plt Count 322 D MPV 9.7 D Neutrophils % 62.1 D Lymphocytes % 19.8 D Monocytes % 13.6 H D Eosinophils % 3.4 D Basophils % 1.1 Sodium 137 Potassium 5.1 Chloride 105 Carbon Dioxide 23 Anion Gap 9 BUN 57 H D Creatinine 7.6 H* Creat Clearance w eGFR 6.90 Random Glucose 171 H Calcium 8.3 L Total Bilirubin 0.5 D AST 10 L ALT 14 D Alkaline Phosphatase 94 Total Protein 7.1 Albumin 3.2 L Active Medications Generic Name Dose Route Start Last Admin Trade Name Freq PRN Reason Stop Dose Admin Amlodipine Besylate 10 mg 11/26/17 10:00 Norvasc - PO DAILY [facility] Atorvastatin Calcium 10 mg 11/26/17 22:00 Lipitor - PO HS [facility] Furosemide 20 mg 11/26/17 10:00 Lasix - PO DAILY [facility] Insulin Aspart 1 vial 11/26/17 07:00 11/26/17 06:43 Novolog Vial Sliding Scale - SQ Not Given [facility] Protocol Insulin Detemir 15 units 11/26/17 07:00 11/26/17 06:42 Levemir Vial SQ 15 unit DAILY@0700 [facility] Administration Losartan Potassium 100 mg 11/26/17 10:00 Losartan Potassium PO DAILY [facility] Ranolazine 500 mg 11/26/17 10:00 Ranexa - PO BID [facility] CBC, BMP 11/25/17 23:20 11/25/17 23:20 ASSESSMENT/PLAN: 82 year old gentleman with PMhx of CKD stage 5 with proteinuria, Hx of Nephretomy, Hypertension, Hyperlipidemia who was sent in from our office to start dialysis in setting of progressive CKD and uremic symptoms. #CKD stage 5 with mild uremic symptoms now ESRD likley diabetic neuropathy * No biopsy was done due to one kidney * Nurse Companion 7.6 in ED (7.5 in office in Oct) * Consult nephrology Dr Bart Tanner * had first dialysis session today as inpatient with no complication * plan for 2nd dialysis tomorrow * will need social work consult for outpatient dialysis placement * Dose all meds for intermittent dialysis * Renal Diet and education * F/U Hep A,B,C Panel * Type and screen ##Proteinuria * Pt with + NEIDA as outpatient but no Hx of SLE * unfortunately no utility of biopsy at this time given pt has only one kidney and he has long standing and progressive CKD #DM -glc 171 -ISS -BGM ACHS - Levemir 15 units SQ daily #HTN * Continue amlodpine 10 daily * hold losartan for now * pt was off this medication as a outpatient * continue Lasix 20 mg po daily #HLD * continue Lipitor 10 mg PO HS # H/O Angian ? * contineu ranexa 500 mg PO BID #FEN -not on fluids. Due for HD -K 5.1. EKG benign. HD today and tomorrow -Renal diet #PPx -Hep SubQ #Dispo -Obs Visit type - Emergency Visit Emergency Visit: Yes ED Registration Date: 11/26/17 Care time: The patient presented to the Emergency Department on the above date and was hospitalized for further evaluation of their emergent condition. - New Patient This patient is new to me today: Yes Date on this admission: 11/26/17 - Critical Care Critical Care patient: No <Ethel Allen - Last Filed: 11/26/17 18:04> Physical Exam: SUBJECTIVE: Patient seen and examined Correction: hx of Angina on Ranexa
--- NOTE | 2017-11-26 09:18 | PN ---
Teaching Attending Note Name of Resident: Huang Wasserman ATTENDING PHYSICIAN STATEMENT I saw and evaluated the patient. I reviewed the resident's note and discussed the case with the resident. I agree with the resident's findings and plan as documented. SUBJECTIVE: Patient is having dialysis with no acute distress, no shortness of breath. OBJECTIVE: Vital Signs Temperature 98.0 F 11/26/17 07:14 Pulse Rate 75 11/26/17 07:14 Respiratory Rate 16 11/26/17 07:14 Blood Pressure 129/66 11/26/17 07:14 O2 Sat by Pulse Oximetry (%) 98 11/26/17 08:04 CBCD WBC 9.9 K/mm3 (4.0-10.0) 11/25/17 23:20 RBC 2.63 M/mm3 (4.00-5.60) L 11/25/17 23:20 Hgb 8.5 GM/dL (11.7-16.9) L 11/25/17 23:20 Hct 26.0 % (35.4-49) L 11/25/17 23:20 MCV 98.6 fl (80-96) H 11/25/17 23:20 MCHC 32.8 g/dl (32.0-35.9) 11/25/17 23:20 RDW 13.3 % (11.9-15.9) 11/25/17 23:20 Plt Count 322 K/MM3 (134-434) D 11/25/17 23:20 MPV 9.7 fl (7.5-11.1) D 11/25/17 23:20 CMP Sodium 137 mmol/L (136-145) 11/25/17 23:20 Potassium 5.1 mmol/L (3.5-5.1) 11/25/17 23:20 Chloride 105 mmol/L (98-107) 11/25/17 23:20 Carbon Dioxide 23 mmol/L (21-32) 11/25/17 23:20 Anion Gap 9 (8-16) 11/25/17 23:20 BUN 57 mg/dL (7-18) H D 11/25/17 23:20 Creatinine 7.6 mg/dL (0.7-1.3) H* 11/25/17 23:20 Creat Clearance w eGFR 6.90 (>60) 11/25/17 23:20 Random Glucose 171 mg/dL (74-106) H 11/25/17 23:20 Calcium 8.3 mg/dL (8.5-10.1) L 11/25/17 23:20 Total Bilirubin 0.5 mg/dL (0.2-1.0) D 11/25/17 23:20 AST 10 U/L (15-37) L 11/25/17 23:20 ALT 14 U/L (12-78) D 11/25/17 23:20 Alkaline Phosphatase 94 U/L (45-117) 11/25/17 23:20 Total Protein 7.1 g/dl (6.4-8.2) 11/25/17 23:20 Albumin 3.2 g/dl (3.4-5.0) L 11/25/17 23:20 Current Medications Generic Name Dose Route Start Last Admin Trade Name Freq PRN Reason Stop Dose Admin Amlodipine Besylate 10 mg 11/26/17 10:00 Norvasc - PO DAILY [facility] Atorvastatin Calcium 10 mg 11/26/17 22:00 Lipitor - PO HS [facility] Furosemide 20 mg 11/26/17 10:00 Lasix - PO DAILY [facility] Insulin Aspart 1 vial 11/26/17 07:00 11/26/17 06:43 Novolog Vial Sliding Scale - SQ Not Given [facility] Protocol Insulin Detemir 15 units 11/26/17 07:00 11/26/17 06:42 Levemir Vial SQ 15 unit DAILY@0700 [facility] Administration Losartan Potassium 100 mg 11/26/17 10:00 Losartan Potassium PO DAILY [facility] Ranolazine 500 mg 11/26/17 10:00 Ranexa - PO BID [facility] Home Medications Medication Instructions Recorded Amlodipine Besylate [Norvasc -] 10 mg PO DAILY 08/07/14 Furosemide [Lasix -] 20 mg PO DAILY 08/07/14 Losartan Potassium [Cozaar] 100 mg PO DAILY 08/07/14 Ranolazine [Ranexa] 500 mg PO BID 08/07/14 Simvastatin [Zocor -] 20 mg PO HS 08/07/14 Aspirin [ASA -] 325 mg PO DAILY 10/20/17 Insulin Glargine,Hum.rec.anlog 15 units SQ DAILY 10/20/17 [Lantus Solostar PEN (NF)] Lisinopril 10 mg PO DAILY 10/20/17 Oxycodone HCl/Acetaminophen 1 tab PO Q6H PRN #16 tablet MDD 4 10/28/17 [Percocet 5-325 mg Tablet] PE: Left arm AVF rest of PE per resident ASSESSMENT AND PLAN: Pt is an 82 y/o M with PMHx of ESRD who was sent in by his field nurse case manager to have dialysis since creatinine was found to be 7.6 #Acute on chronic Kidney failure ; ESRD on HD , 1st one today -Rec Therapist 7.6 in ED (7.5 in office in Oct). on the case , patient is getting dialized in am as well. #DM on sliding scale with coverage #PPx: Hep SubQ
[2017-11-26] MEDS ORDERED: LOSARTAN POTASSIUM 100 MG TABLET PO SCH (10:00)
[2017-11-26] MEDS: RANOLAZINE E.R. 500 MG TABLET (FP) PO SCH ×2 (10:05→23:50)
[2017-11-26] MEDS: FUROSEMIDE 20 MG TABLET (FP) PO SCH (10:06)
[2017-11-26] MEDS: amLODIPine BESYLATE 10 MG TABLET (FP) PO SCH (10:06)
--- NOTE | 2017-11-26 10:29 | CON.NEP ---
Consult Consult Specialty:: Nephrology Referred by:: Alejandro Reason for Consultation:: CKD Stage 5 to start dialysis - History of Present Illness Chief Complaint: Weakness History of Present Illness: This is a 82 year old gentleman with PMhx of CKD stage 5 with proteinuria, Hx of Nephretomy, Hypertension, Hyperlipidemia who was sent in from our office to start dialysis in setting of progressive CKD and uremic symptoms. Pt is awake and alert and has no acute complaints. He has had advanced CKD for some time and had a previous AVF placed but that was not functioning. New AVF placed by Vascular recently. No SOB, chest pain, abd pain, N/V. Pt was accompanied by his yesterday who is a better historian. - History Source History Provided By: Patient Limitations to Obtaining History: No Limitations - Past Medical History Cardio/Vascular: Yes: CAD, HTN Renal/: Yes: Renal Inusuff - Alcohol/Substance Use Hx Alcohol Use: No - Smoking History Smoking history: Former smoker Have you smoked in the past 12 months: No If you are a former smoker, when did you quit?: 25 YRS Home Medications - Allergies Allergies/Adverse Reactions: Allergies Allergy/AdvReac Type Severity Reaction Status Date / Time corn [Madill] Allergy "ITCHY ALL Verified 11/25/17 14:02 OVER" No Known Drug Allergies Allergy Verified 11/25/17 14:02 - Home Medications Home Medications: Ambulatory Orders Amlodipine Besylate [Norvasc -] 10 mg PO DAILY 08/07/14 Furosemide [Lasix -] 20 mg PO DAILY 08/07/14 Losartan Potassium [Cozaar] 100 mg PO DAILY 08/07/14 Ranolazine [Ranexa] 500 mg PO BID 08/07/14 Simvastatin [Zocor -] 20 mg PO HS 08/07/14 Aspirin [ASA -] 325 mg PO DAILY 10/20/17 Insulin Glargine,Hum.rec.anlog [Lantus Solostar PEN (NF)] 15 units SQ DAILY 10/25 Lisinopril 10 mg PO DAILY 10/20/17 Oxycodone HCl/Acetaminophen [Percocet 5-325 mg Tablet] 1 tab PO Q6H PRN #16 tablet MDD 4 10/28/17 Family Disease History - Family Disease History Family History: Unremarkable Review of Systems - Review of Systems Constitutional: reports: No Symptoms Eyes: reports: No Symptoms HENT: reports: No Symptoms Neck: reports: No Symptoms Cardiovascular: reports: No Symptoms Respiratory: reports: No Symptoms Gastrointestinal: reports: No Symptoms Genitourinary: reports: No Symptoms Musculoskeletal: reports: No Symptoms Neurological: reports: No Symptoms Endocrine: reports: No Symptoms Nephrology Consult - Height Height: 5 ft 1 in - Weight Weight: 54.431 kg - BMI Body Mass Index (BMI): 22.6 - Lab Results CBC,BMP: CBC, BMP 11/25/17 23:20 11/25/17 23:20 Anion Gap: Anion Gap Anion Gap 9 (8-16) 11/25/17 23:20 - Physical Examination Vital Signs: Vital Signs Temperature 98.0 F 11/26/17 07:14 Pulse Rate 75 11/26/17 07:14 Respiratory Rate 16 11/26/17 07:14 Blood Pressure 129/66 11/26/17 07:14 O2 Sat by Pulse Oximetry (%) 98 11/26/17 08:04 Constitutional: Yes: No Distress, Calm Eyes: Yes: Conjunctiva Clear HENT: Yes: Atraumatic, Normocephalic Neck: Yes: Supple Cardiovascular: Yes: Regular Rate and Rhythm, S1, S2. No: Murmur, Rub Respiratory: Yes: Regular, CTA Bilaterally. No: Rales, Rhonchi Gastrointestinal: Yes: Normal Bowel Sounds, Soft Renal/: No: Anuria, Bladder Distention, CVA Tenderness - Left, CVA Tenderness - Right, Hematuria Access for Hemodialysis: AV Fistula Extremities: No: Cold, Cool, Cyanosis Edema: No Neurological: Yes: Alert, Oriented. No: Asterixis Assessment/Plan 82 year old gentleman with PMhx of CKD stage 5 with proteinuria, Hx of Nephretomy, Hypertension, Hyperlipidemia who was sent in from our office to start dialysis in setting of progressive CKD and uremic symptoms. #CKD stage 5 with mild uremic symptoms now ESRD Etiology of CKD likely diabetic nephropathy given proteinuria but no biopsy done to have first dialysis session today as inpatient plan for 2nd dialysis tomorrow will need social work consult for outpatient dialysis placement Dose all meds for intermittent dialysis Renal Diet and education #Proteinuria Pt with + NEIDA as outpatient but no Hx of SLE unfortunately no utility of biopsy at this time given pt has only one kidney and he has long standing and progressive CKD #Hypertension Continue amlodpine hold losartan for now pt was off this medication as a outpatient continue Lasix daily #HLD continue statin Thank you will follow Ciro Arriaga DO Current Medications Amlodipine Besylate (Norvasc -) 10 mg PO DAILY [facility] Last Admin: 11/26/17 10:06 Dose: 10 mg Atorvastatin Calcium (Lipitor -) 10 mg PO HS [facility] Furosemide (Lasix -) 20 mg PO DAILY [facility] Last Admin: 11/26/17 10:06 Dose: 20 mg Insulin Aspart (Novolog Vial Sliding Scale -) 1 vial SQ ACHS [facility] PRN Reason: Protocol Last Admin: 11/26/17 06:43 Dose: Not Given Insulin Detemir (Levemir Vial) 15 units SQ DAILY@0700 [facility] Last Admin: 11/26/17 06:42 Dose: 15 unit Losartan Potassium (Losartan Potassium) 100 mg PO DAILY [facility] Last Admin: 11/26/17 10:05 Dose: 100 mg Ranolazine (Ranexa -) 500 mg PO BID [facility] Last Admin: 11/26/17 10:05 Dose: 500 mg
[2017-11-26 12:20] LABS: HEMATOCRIT 21.6 % (35.4-49); HEMOGLOBIN 7.1 GM/dL (11.7-16.9); MCHC 32.7 g/dl (32.0-35.9); PLATELET COUNT 262 K/MM3 (134-434); RDW 13.2 % (11.9-15.9); WHITE BLOOD COUNT 8.7 K/mm3 (4.0-10.0)
--- NOTE | 2017-11-26 12:30 | EKG ---
Test Reason : Blood Pressure : / mmHG Vent. Rate : 079 BPM Atrial Rate : 079 BPM P-R Int : 172 ms QRS Dur : 116 ms QT Int : 408 ms P-R-T Axes : 069 -42 076 degrees QTc Int : 467 ms NORMAL SINUS RHYTHM LEFT AXIS DEVIATION INCOMPLETE LEFT BUNDLE BRANCH BLOCK ABNORMAL ECG WHEN COMPARED WITH ECG OF 04-NOV-2017 13:54, NO SIGNIFICANT CHANGE WAS FOUND Confirmed by NICK VELIZ, ANNAMARIA ([id number]) on 11/26/2017 12:29:59 PM Referred By: Confirmed By:ANNAMARIA ROMERO MD
[2017-11-26 13:04] LABS: ANION GAP 8 (8-16); BLOOD UREA NITROGEN 55 mg/dL (7-18); CALCIUM 7.4 mg/dL (8.5-10.1); CHLORIDE 109 mmol/L (98-107); CO2 22 mmol/L (21-32); CREATININE 7.3 mg/dL (0.7-1.3); GLUCOSE,RANDOM 86 mg/dL (74-106); PHOSPHOROUS 4.1 mg/dL (2.5-4.9); POTASSIUM 4.8 mmol/L (3.5-5.1); SODIUM 139 mmol/L (136-145)
[2017-11-26] MEDS ORDERED: ATORVASTATIN CA 10 MG TABLET (FP) PO SCH (22:00)
--- NOTE | 2017-11-27 04:33 | PN ---
Physical Exam: SUBJECTIVE: Patient seen and examined at bedside. feeling very good today. will have another Dialysis today. denies any fever, chills, N/V/D/C. denies any abdominal pain or chest pain. OBJECTIVE: Vital Signs Period Temp Pulse Resp BP Sys/Parekh Pulse Ox Last 24 Hr 97.7 F-99.0 F 70-82 16-18 129-166/65-109 95-99 GENERAL: The patient is awake, alert, and fully oriented, in no acute distress. HEAD: Normal with no signs of trauma. EYES: sclera anicteric, conjunctiva clear. ENT: moist mucous membranes. NECK: supple. LUNGS: Breath sounds equal, clear to auscultation bilaterally, no wheezes, no crackles, no accessory muscle use. HEART: Regular rate and rhythm, S1, S2 without murmur, rub or gallop. ABDOMEN: Soft, nontender, nondistended, normoactive bowel sounds, no guarding, no rebound, EXTREMITIES: 2+ pulses, warm, well-perfused, no edema. right arm fistula in place. NEUROLOGICAL: no focal deficit , Normal speech, gait not observed. PSYCH: Normal mood, normal affect. SKIN: Warm, dry, no rashes or lesions noted Laboratory Results - last 24 hr 11/26/17 11/26/17 11/26/17 06:38 11:50 11:50 WBC 8.7 RBC 2.20 L Hgb 7.1 L D Hct 21.6 L D MCV 98.0 H MCH 32.0 MCHC 32.7 RDW 13.2 Plt Count 262 MPV 9.0 Sodium 139 Potassium 4.8 Chloride 109 H Carbon Dioxide 22 Anion Gap 8 BUN 55 H Creatinine 7.3 H POC Glucometer 124.46119 Random Glucose 86 D Calcium 7.4 L Phosphorus 4.1 Blood Type Antibody Screen Crossmatch 11/26/17 11/26/17 11/26/17 14:00 14:34 20:00 WBC RBC Hgb Hct MCV MCH MCHC RDW Plt Count MPV Sodium Potassium Chloride Carbon Dioxide Anion Gap BUN Creatinine POC Glucometer 98.62160 Random Glucose Calcium Phosphorus Blood Type A POSITIVE A POSITIVE Antibody Screen Negative Cancelled Crossmatch See Detail See Detail 11/26/17 23:34 WBC RBC Hgb Hct MCV MCH MCHC RDW Plt Count MPV Sodium Potassium Chloride Carbon Dioxide Anion Gap BUN Creatinine POC Glucometer 75 Random Glucose Calcium Phosphorus Blood Type Antibody Screen Crossmatch Active Medications Generic Name Dose Route Start Last Admin Trade Name Abraham PRN Reason Stop Dose Admin Amlodipine Besylate 10 mg 11/26/17 10:00 11/26/17 10:06 Norvasc - PO 10 mg DAILY [facility]IAN Administration Atorvastatin Calcium 10 mg 11/26/17 22:00 11/26/17 23:50 Lipitor - PO 10 mg HS SEBASTIAN Administration Epoetin Juan 10,000 unit 11/27/17 06:00 Epogen - IVPUSH 11/27/17 06:01 ONCE ONE Furosemide 20 mg 11/26/17 10:00 11/26/17 10:06 Lasix - PO 20 mg DAILY SEBASTIAN Administration Insulin Aspart 1 vial 11/26/17 07:00 11/26/17 23:55 Novolog Vial Sliding Scale - SQ Not Given [facility] Protocol Insulin Detemir 7.5 units 11/26/17 16:41 Levemir Vial SQ DAILY@0700 SEBASTIAN Ranolazine 500 mg 11/26/17 10:00 11/26/17 23:50 Ranexa - PO 500 mg BID SEBASTIAN Administration CBC, BMP 11/27/17 06:40 11/27/17 06:40 ASSESSMENT/PLAN: 82 year old gentleman with PMhx of CKD stage 5 with proteinuria, Hx of Nephretomy, Hypertension, Hyperlipidemia who was sent in from our office to start dialysis in setting of progressive CKD and uremic symptoms. 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 (7.5 in office in Oct) * Consult nephrology Dr Bart Tanner * had first dialysis session today as inpatient with no complication * plan for 2nd dialysis tomorrow * will need social work consult for outpatient dialysis placement * Dose all meds for intermittent dialysis * Renal Diet and education * F/U Hep A,B,C Panel * Type and screen ##Proteinuria * Pt with + NEIDA as outpatient but no Hx of SLE * unfortunately no utility of biopsy at this time given pt has only one kidney and he has long standing and progressive CKD #DM -glc 171 -ISS -BGM ACHS - Levemir 15 units SQ daily #HTN * Continue amlodpine 10 daily * hold losartan for now * pt was off this medication as a outpatient * continue Lasix 20 mg po daily #HLD * continue Lipitor 10 mg PO HS # H/O Angian ? * contineu ranexa 500 mg PO BID #FEN -not on fluids. Due for HD -K 5.1. EKG benign. HD today and tomorrow -Renal diet #PPx -Hep SubQ #Dispo -Obs Visit type - Emergency Visit Emergency Visit: Yes ED Registration Date: 11/26/17 Care time: The patient presented to the Emergency Department on the above date and was hospitalized for further evaluation of their emergent condition. - New Patient This patient is new to me today: No - Critical Care Critical Care patient: No - Discharge Referral Referred to [facility] Med P.C.: No
[2017-11-27 07:35] LABS: BASO % 0.8 % (0-2.0); EOS % 4.2 % (0-4.5); HEMATOCRIT 24.2 % (35.4-49); LYMPH % 22.4 % (8-40); MCH 32.2 pg (25.7-33.7); MCHC 33.2 g/dl (32.0-35.9); MEAN CELL VOLUME 97.1 fl (80-96); MEAN PLT VOLUME 9.3 fl (7.5-11.1); MONO % 18.3 % (3.8-10.2); NEUT % 54.3 % (42.8-82.8); PLATELET COUNT 309 K/MM3 (134-434); RBC 2.49 M/mm3 (4.00-5.60); RDW 13.2 % (11.9-15.9); WHITE BLOOD COUNT 10.8 K/mm3 (4.0-10.0)
[2017-11-27 08:08] LABS: CHLORIDE 103 mmol/L (98-107); POTASSIUM 4.5 mmol/L (3.5-5.1); SODIUM 138 mmol/L (136-145)
[2017-11-27] MEDS: INSULIN SLIDING SCALE (NOVOLOG) 1 VIAL SQ SCH ×3 (08:13→17:36)
[2017-11-27 08:24] LABS: ALBUMIN 2.8 g/dl (3.4-5.0); ALK PHOS 82 U/L (45-117); ANION GAP 11 (8-16); BILIRUBIN,TOTAL 0.7 mg/dL (0.2-1.0); BLOOD UREA NITROGEN 40 mg/dL (7-18); CALCIUM 7.5 mg/dL (8.5-10.1); CO2 24 mmol/L (21-32); CREATININE 5.8 mg/dL (0.7-1.3); GLUCOSE,RANDOM 64 mg/dL (74-106); PHOSPHOROUS 3.8 mg/dL (2.5-4.9); SGOT/AST 9 U/L (15-37); SGPT/ALT 11 U/L (12-78); TOT PROT 6.2 g/dl (6.4-8.2)
[2017-11-27] MEDS: RANOLAZINE E.R. 500 MG TABLET (FP) PO SCH (09:32)
[2017-11-27] MEDS ORDERED: EPOETIN ALFA 10,000 UNIT/1 ML VIAL IVPUSH ONE (12:15)
--- NOTE | 2017-11-27 13:09 | PN ---
Progress Note (short form) - Note Progress Note: Renal follow up for CKD stage 5 now ESRD on HD Pt seen and examined during dialysis BP stable 160/80 no acute complaints AVG with good flow UF goal is 0.5 L Vital Signs Temperature 98.5 F 11/27/17 09:08 Pulse Rate 68 11/27/17 12:20 Respiratory Rate 18 11/27/17 12:20 Blood Pressure 165/65 11/27/17 12:20 O2 Sat by Pulse Oximetry (%) 97 11/26/17 22:00 Intake & Output 11/24/17 11/25/17 11/26/17 11/27/17 23:59 23:59 23:59 23:59 Intake Total 100 Balance 100 Weight 54.431 kg 54.488 kg 54.488 kg NAD awake and alert RRR CTA no LE edema CBC, BMP 11/27/17 06:40 11/27/17 06:40 Current Medications Amlodipine Besylate (Norvasc -) 10 mg PO DAILY [facility] Last Admin: 11/26/17 10:06 Dose: 10 mg Atorvastatin Calcium (Lipitor -) 10 mg PO HS [facility] Last Admin: 11/26/17 23:50 Dose: 10 mg Furosemide (Lasix -) 20 mg PO DAILY [facility] Last Admin: 11/26/17 10:06 Dose: 20 mg Insulin Aspart (Novolog Vial Sliding Scale -) 1 vial SQ ACHS [facility] PRN Reason: Protocol Last Admin: 11/27/17 11:44 Dose: Not Given Insulin Detemir (Levemir Vial) 7.5 units SQ DAILY@0700 [facility] Last Admin: 11/27/17 08:13 Dose: Not Given Ranolazine (Ranexa -) 500 mg PO BID [facility] Last Admin: 11/27/17 09:32 Dose: 500 mg 82 year old gentleman with PMhx of CKD stage 5 with proteinuria, Hx of Nephretomy, Hypertension, Hyperlipidemia who was sent in from our office to start dialysis in setting of progressive CKD and uremic symptoms. #CKD stage 5 with mild uremic symptoms now ESRD on HD pt tolerated 2nd dialysis today w/o issue Hepatitis profile reported, Heb B negative AVF with good function outpatient dialysis placement pending #Proteinuria Pt with + NEIDA as outpatient but no Hx of SLE unfortunately no utility of biopsy at this time given pt has only one kidney and he has long standing and progressive CKD #Hypertension Increase Lasix to 80mg once daily holding losartan for now continue Amlodpine 10mg Daily #HLD continue statin discharge pending outpatient dialysis placement Ciro Arriaga DO
[2017-11-27] MEDS: amLODIPine BESYLATE 10 MG TABLET (FP) PO SCH (15:02)
[2017-11-27] MEDS: FUROSEMIDE 20 MG TABLET (FP) PO SCH (15:02)
--- NOTE | 2017-11-27 15:28 | PN ---
Teaching Attending Note Name of Resident: Huang Wasserman ATTENDING PHYSICIAN STATEMENT I saw and evaluated the patient. I reviewed the resident's note and discussed the case with the resident. I agree with the resident's findings and plan as documented. SUBJECTIVE: Patient is comfortable with no acute distress, no shortness of breath, no nausea or vomiting. OBJECTIVE: Vital Signs Temperature 98.5 F 11/27/17 09:08 Pulse Rate 73 11/27/17 13:00 Respiratory Rate 18 11/27/17 13:00 Blood Pressure 157/65 11/27/17 13:00 O2 Sat by Pulse Oximetry (%) 97 11/26/17 22:00 CBCD WBC 10.8 K/mm3 (4.0-10.0) H 11/27/17 06:40 RBC 2.49 M/mm3 (4.00-5.60) L 11/27/17 06:40 Hgb 8.0 GM/dL (11.7-16.9) L D 11/27/17 06:40 Hct 24.2 % (35.4-49) L 11/27/17 06:40 MCV 97.1 fl (80-96) H 11/27/17 06:40 MCHC 33.2 g/dl (32.0-35.9) 11/27/17 06:40 RDW 13.2 % (11.9-15.9) 11/27/17 06:40 Plt Count 309 K/MM3 (134-434) 11/27/17 06:40 MPV 9.3 fl (7.5-11.1) 11/27/17 06:40 CMP Sodium 138 mmol/L (136-145) 11/27/17 06:40 Potassium 4.5 mmol/L (3.5-5.1) 11/27/17 06:40 Chloride 103 mmol/L (98-107) 11/27/17 06:40 Carbon Dioxide 24 mmol/L (21-32) 11/27/17 06:40 Anion Gap 11 (8-16) 11/27/17 06:40 BUN 40 mg/dL (7-18) H D 11/27/17 06:40 Creatinine 5.8 mg/dL (0.7-1.3) H D 11/27/17 06:40 Creat Clearance w eGFR 9.43 (>60) 11/27/17 06:40 Random Glucose 64 mg/dL (74-106) L D 11/27/17 06:40 Calcium 7.5 mg/dL (8.5-10.1) L 11/27/17 06:40 Total Bilirubin 0.7 mg/dL (0.2-1.0) D 11/27/17 06:40 AST 9 U/L (15-37) L 11/27/17 06:40 ALT 11 U/L (12-78) L D 11/27/17 06:40 Alkaline Phosphatase 82 U/L (45-117) 11/27/17 06:40 Total Protein 6.2 g/dl (6.4-8.2) L 11/27/17 06:40 Albumin 2.8 g/dl (3.4-5.0) L 11/27/17 06:40 Current Medications Generic Name Dose Route Start Last Admin Trade Name Freq PRN Reason Stop Dose Admin Amlodipine Besylate 10 mg 11/26/17 10:00 11/27/17 15:02 Norvasc - PO 10 mg DAILY [facility] Administration Atorvastatin Calcium 10 mg 11/26/17 22:00 11/26/17 23:50 Lipitor - PO 10 mg HS [facility] Administration Furosemide 80 mg 11/28/17 10:00 Lasix - PO DAILY [facility] Insulin Aspart 1 vial 11/26/17 07:00 11/27/17 11:44 Novolog Vial Sliding Scale - SQ Not Given ACHS [facility] Protocol Insulin Detemir 7.5 units 11/26/17 16:41 11/27/17 08:13 Levemir Vial SQ Not Given DAILY@0700 [facility] Ranolazine 500 mg 11/26/17 10:00 11/27/17 09:32 Ranexa - PO 500 mg BID [facility]IAN Administration Home Medications Medication Instructions Recorded Amlodipine Besylate [Norvasc -] 10 mg PO DAILY 08/07/14 Furosemide [Lasix -] 20 mg PO DAILY 08/07/14 Losartan Potassium [Cozaar] 100 mg PO DAILY 08/07/14 Ranolazine [Ranexa] 500 mg PO BID 08/07/14 Simvastatin [Zocor -] 20 mg PO HS 08/07/14 Aspirin [ASA -] 325 mg PO DAILY 10/20/17 Insulin Glargine,Hum.rec.anlog 15 units SQ DAILY 10/20/17 [Lantus Solostar PEN (NF)] Lisinopril 10 mg PO DAILY 10/20/17 Oxycodone HCl/Acetaminophen 1 tab PO Q6H PRN #16 tablet MDD 4 10/28/17 [Percocet 5-325 mg Tablet] PE: Left arm AVF rest of PE per resident's note ASSESSMENT AND PLAN: Pt is an 82 y/o M with PMHx of ESRD who was 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 Also his Lasix was increased to 80mg from 20mg continue the dose, of 80mg as per nephro, also discontinue Lisinopril and losartan as per nephro. hepatitis B is negative. 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 follow with dr. keller in a week period. #DM .continue home meds. 15units of Lantus will discharge patient home today
[2017-11-27 15:53] VITALS: BP 150/59; PULSE 77; TEMP 99.4
--- NOTE | 2017-11-27 16:25 | DS ---
Physical Exam: SUBJECTIVE: Patient seen and examined at bedside. feeling very good today. had another Dialysis today. denies any fever, chills, N/V/D/C. denies any abdominal pain or chest pain. OBJECTIVE: Vital Signs Period Temp Pulse Resp BP Sys/Parekh Pulse Ox Last 24 Hr 97.7 F-99.4 F 68-83 17-18 136-171/57-72 95-97 PHYSICAL EXAM GENERAL: The patient is awake, alert, and fully oriented, in no acute distress. HEAD: Normal with no signs of trauma. EYES: sclera anicteric, conjunctiva clear. ENT: moist mucous membranes. NECK: supple. LUNGS: Breath sounds equal, clear to auscultation bilaterally, no wheezes, no crackles, no accessory muscle use. HEART: Regular rate and rhythm, S1, S2 without murmur, rub or gallop. ABDOMEN: Soft, nontender, nondistended, normoactive bowel sounds, no guarding, no rebound, EXTREMITIES: 2+ pulses, warm, well-perfused, no edema. right arm fistula in place. NEUROLOGICAL: no focal deficit , Normal speech, gait not observed. PSYCH: Normal mood, normal affect. SKIN: Warm, dry, no rashes or lesions noted Home Medication List Medication Instructions Recorded Confirmed Type Amlodipine Besylate [Norvasc -] 10 mg PO DAILY 08/07/14 11/04/17 History Ranolazine [Ranexa] 500 mg PO BID 08/07/14 11/04/17 History Simvastatin [Zocor -] 20 mg PO HS 08/07/14 11/04/17 History Aspirin [ASA -] 325 mg PO DAILY 10/20/17 11/04/17 History LABS Laboratory Results - last 24 hr 11/25/17 11/26/17 11/26/17 23:20 14:00 14:34 WBC RBC Hgb Hct MCV MCH MCHC RDW Plt Count MPV Neutrophils % Lymphocytes % Monocytes % Eosinophils % Basophils % Sodium Potassium Chloride Carbon Dioxide Anion Gap BUN Creatinine Creat Clearance w eGFR POC Glucometer 98.10207 Random Glucose Calcium Phosphorus Magnesium Total Bilirubin AST ALT Alkaline Phosphatase Total Protein Albumin Hepatitis A IgM Ab Negative Hep Bs Antigen Negative Hep B Core IgM Ab Negative Hepatitis C Antibody 0.1 Blood Type A POSITIVE Antibody Screen Negative Crossmatch See Detail 11/26/17 11/26/17 11/27/17 20:00 23:34 06:40 WBC 10.8 H RBC 2.49 L Hgb 8.0 L D Hct 24.2 L MCV 97.1 H MCH 32.2 MCHC 33.2 RDW 13.2 Plt Count 309 MPV 9.3 Neutrophils % 54.3 Lymphocytes % 22.4 Monocytes % 18.3 H Eosinophils % 4.2 Basophils % 0.8 Sodium Potassium Chloride Carbon Dioxide Anion Gap BUN Creatinine Creat Clearance w eGFR POC Glucometer 75 Random Glucose Calcium Phosphorus Magnesium Total Bilirubin AST ALT Alkaline Phosphatase Total Protein Albumin Hepatitis A IgM Ab Hep Bs Antigen Hep B Core IgM Ab Hepatitis C Antibody Blood Type A POSITIVE Antibody Screen Cancelled Crossmatch See Detail 11/27/17 11/27/17 06:40 07:06 WBC RBC Hgb Hct MCV MCH MCHC RDW Plt Count MPV Neutrophils % Lymphocytes % Monocytes % Eosinophils % Basophils % Sodium 138 Potassium 4.5 Chloride 103 Carbon Dioxide 24 Anion Gap 11 BUN 40 H D Creatinine 5.8 H D Creat Clearance w eGFR 9.43 POC Glucometer 66 Random Glucose 64 L D Calcium 7.5 L Phosphorus 3.8 Magnesium 2.0 Total Bilirubin 0.7 D AST 9 L ALT 11 L D Alkaline Phosphatase 82 Total Protein 6.2 L Albumin 2.8 L Hepatitis A IgM Ab Hep Bs Antigen Hep B Core IgM Ab Hepatitis C Antibody Blood Type Antibody Screen Crossmatch CBC, BMP 11/27/17 06:40 11/27/17 06:40 CXR 11/26/2017 shows chronic right side not changed from previous xray. HOSPITAL COURSE: Date of Admission:11/26/17 Date of Discharge: 11/27/17 82 year old gentleman with PMhx of CKD stage 5 with proteinuria, Hx of Nephretomy, Hypertension, Hyperlipidemia who was sent in from our office to start dialysis in setting of progressive CKD and uremic symptoms. was found to have CKD stage 5 with mild uremic symptoms now ESRD likley diabetic neuropathy . Patient tolerated 2 dialysis session on and with no complications, HIS Cr 7.6 on admission , CR 5.8 on discharged.patient was seen by automotive engineer Dr.Shaji Tanner.Renal Diet and education, Hep A,B,C Panel negative. Patient was found to have protienuria with NEIDA + he can follow up as out patient for SLE work up, no biopsy could be done due to single kidney. Patient has DM with Glu 171 on admission was treated with ISS, Levemir 15 units SQ daily , and his HTN was controlled with home meds Amlodipine 10 mg daily,and lasix 20 mf po daily losartan was held during hospitalization. will continue his home meds for HLD Lipitor 10 mg po HS and Ranexa 500 mg PO BID. K was 5.1 on admission with no EKG changes and 4.5 on discharged. all meds need to be adjusted for renal doses, and patient was consulted to follow renal diet. Patient will continue dialysis as out patient. Minutes to complete discharge: 40 Discharge Summary Reason For Visit: END STAGE RENAL DISEASE Current Active Problems ESRD (end stage renal disease) (Chronic) Condition: Stable - Instructions Diet, Activity, Other Instructions: You were sent to the hospital by your kidney doctor because your kidneys are not functioning well. You were treated accordingly here at [facility] and now your kidney function has stabilized after 2 sessions of dialysis. You are now stable to be discharged home and continue outpatient dialysis at [facility]. Please remember the followings: 1. Stop taking lisinopril and losartan UNTIL you follow up with Dr. Arriaga or Dr. Lundberg again 2. Your water pill dose (Lasix) has increased from 20mg to 80mg once daily 3. You have an appointment for outpatient dialysis session at [facility], your dialysis days will be Thursday- and Thursday. Please return to the Emergency Room if you experience worsening weakness, dizziness, vision change, palpitation, chest pain. Referrals: Ciro Arriaga MD [Staff Physician] - Disposition: HOME - Home Medications Comprehensive Discharge Medication List: Ambulatory Orders Amlodipine Besylate [Norvasc -] 10 mg PO DAILY 08/07/14 Ranolazine [Ranexa] 500 mg PO BID 08/07/14 Simvastatin [Zocor -] 20 mg PO HS 08/07/14 Aspirin [ASA -] 325 mg PO DAILY 10/20/17 Oxycodone HCl/Acetaminophen [Percocet 5-325 mg Tablet] 1 tab PO Q6H PRN #16 tablet MDD 4 10/28/17 Furosemide [Lasix -] 80 mg PO DAILY #60 tablet 11/27/17 Insulin Glargine,Hum.rec.anlog [Lantus Solostar PEN -] 7.5 units SQ DAILY #0 syringe 11/27/17 This patient is new to me today: No Emergency Visit: Yes ED Registration Date: 11/26/17 Care time: The patient presented to the Emergency Department on the above date and was hospitalized for further evaluation of their emergent condition. Critical Care patient: No - Discharge Referral Referred to [facility] Med P.C.: No
[2017-11-28] MEDS ORDERED: FUROSEMIDE 40 MG TABLET (FP) PO SCH (10:00)
== END 2017-11-27 17:04 | disposition home or self-care (01) | DRG 682 ==
LOC: JER 13:47 → JERBED 11-26 01:12 → OBSVTOIN 11-26 11:45 → J5S 11-26 21:20
PROVIDERS: ADMIT Internal Medicine; ATTEND Internal Medicine
PROC: 5A1D70Z Performance of Urinary Filtration, Intermittent, Less than 6 Hours Per Day (ICD-10-PCS; principal; 2017-11-26)
DX: I12.0 Hypertensive chronic kidney disease with stage 5 chronic kidney disease or end stage renal disease (principal); N18.6 End stage renal disease; N17.9 Acute kidney failure, unspecified; E11.22 Type 2 diabetes mellitus with diabetic chronic kidney disease; D64.9 Anemia, unspecified; Z87.891 Personal history of nicotine dependence; Z91.19 Patient's noncompliance with other medical treatment and regimen; E11.40 Type 2 diabetes mellitus with diabetic neuropathy, unspecified; R80.9 Proteinuria, unspecified; E78.5 Hyperlipidemia, unspecified; Z79.4 Long term (current) use of insulin; E11.21 Type 2 diabetes mellitus with diabetic nephropathy
CPT/HCPCS: 36415; 71045-TC-FY; 80048; 80053; 80074; 82962; 83735; 84100; 85025; 85027; 86850; 86900; 86901; 86922; 93005; 93010; 99285-25; G0378; J0885; P9038; P9058

== ENCOUNTER 2017-12-08 15:46 | Inpatient (IN) | payer OTHER ==
--- NOTE | 2017-12-08 15:55 | PDOC ---
Rapid Medical Evaluation Time Seen by Provider: 12/08/17 15:49 Medical Evaluation: Allergies Allergy/AdvReac Type Severity Reaction Status Date / Time corn [[place]] Allergy "ITCHY ALL Verified 12/08/17 15:49 OVER" No Known Drug Allergies Allergy Verified 12/08/17 15:49 12/08/17 15:50 Pt with c/o: increased confusion, hx alzheimers, neurologist saw him today and initiated home care services (start 01/07). Pt on HD . last HD today. looking for subacute rehab and home care services pt on brief exam: VSS Pt ordered for: none Pt to proceed to the ED:
--- NOTE | 2017-12-08 16:25 | PDOC ---
History of Present Illness - General Chief Complaint: Altered Mental Status Stated Complaint: ALTERED MENTAL STATUS Time Seen by Provider: 12/08/17 15:49 - History of Present Illness Initial Comments: 12/08/17 16:23 82 yo M with h/o Alzheimer dementia, HTN, HLD, IDDM, ESRD ( Dialysis on ,, ) who presents with altered mental status. Pt. family member at bedside reports increased confusion beginning ( 12/05/2017). reports that pt. has had increased forgetfulness, and confusion. Reports leaving house for 12 and returning with front room door open and pt. missing. When pt. came home he could not recall where he had went. No agitation. Denies head/back/neck trauma Patient denies N/V, F/C, CP, SOB, lightheadedness, dizziness, urinary complaints , abdominal pain, bowel complaints, weakness, sensory changes. Denies h/o TIA/ CVA. Dialysis today, and advised to come to ED for head CT. Dr. Bart Tanner Cloth Printing Utility Worker. PMD Dr. Flip Ahuja. Past History - Past Medical History Allergies/Adverse Reactions: Allergies Allergy/AdvReac Type Severity Reaction Status Date / Time corn [[place]] Allergy "ITCHY ALL Verified 12/08/17 15:49 OVER" No Known Drug Allergies Allergy Verified 12/08/17 15:49 Home Medications: Ambulatory Orders Oxycodone HCl/Acetaminophen [Percocet 5-325 mg Tablet] 1 tab PO Q6H PRN #16 tablet MDD 4 10/28/17 Furosemide [Lasix -] 80 mg PO DAILY #60 tablet 11/27/17 Amlodipine Besylate [Norvasc -] 10 mg PO DAILY #30 tablet 11/30/17 Aspirin [ASA -] 325 mg PO DAILY #30 tablet 11/30/17 Insulin Glargine,Hum.rec.anlog [Lantus Solostar PEN -] 7.5 units SQ DAILY #30 syringe 11/30/17 Ranolazine [Ranexa] 500 mg PO BID #60 tab.er.12h 11/30/17 Simvastatin [Zocor -] 20 mg PO HS #30 tablet 11/30/17 Anemia: Yes Asthma: No Cancer: No Cardiac Disorders: No CVA: No COPD: No CHF: No DVT: No Dementia: No Diabetes: Yes Dialysis: Yes (, , Sat) GI Disorders: Yes Disorders: No HTN: Yes Hypercholesterolemia: No Liver Disease: No Seizures: No Thyroid Disease: No - Surgical History Abdominal Surgery: Yes (HERNIA REPAIR) Appendectomy: No Cardiac Surgery: No Cholecystectomy: No Lung Surgery: No Neurologic Surgery: No Orthopedic Surgery: Yes - Immunization History Immunization Up to Date: Yes - Suicide/Smoking/Psychosocial Hx Smoking History: Former smoker Have you smoked in the past 12 months: No If you are a former smoker, when did you quit?: 25 YRS Information on smoking cessation initiated: No Hx Alcohol Use: No Drug/Substance Use Hx: No Substance Use Type: None Hx Substance Use Treatment: No Review of Systems - Review of Systems Comments:: 12/08/17 16:35 GENERAL/CONSTITUTIONAL: No fever or chills. No weakness. HEAD, EYES, EARS, NOSE AND THROAT: No change in vision. No ear pain or discharge. No sore throat.- CARDIOVASCULAR: No chest pain or shortness of breath RESPIRATORY: No cough, wheezing, or hemoptysis. GASTROINTESTINAL: No nausea, vomiting, diarrhea or constipation. GENITOURINARY: No dysuria, frequency, or change in urination. MUSCULOSKELETAL: No joint or muscle swelling or pain. No neck or back pain. SKIN: No rash NEUROLOGIC: No headache, vertigo, loss of consciousness, or change in strength/ sensation. ENDOCRINE: No increased thirst. No abnormal weight change HEMATOLOGIC/LYMPHATIC: No anemia, easy bleeding, or history of blood clots. ALLERGIC/IMMUNOLOGIC: No hives or skin allergy. *Physical Exam - Vital Signs Last Vital Signs Temp Pulse Resp BP Pulse Ox 84 20 124/54 100 12/08/17 15:51 12/08/17 15:51 12/08/17 15:51 12/08/17 15:51 - Physical Exam Comments: 12/08/17 16:35 GENERAL: Awake, alert, oriented to person and place, in no acute distress HEAD: No signs of trauma, normocephalic, atraumatic EYES: PERRLA, EOMI, sclera anicteric, conjunctiva clear ENT: Auricles normal inspection, hearing grossly normal, nares patent, oropharynx clear without exudates. Moist mucosa NECK: Normal ROM, supple, no lymphadenopathy, JVD, or masses LUNGS: No distress, speaks full sentences, clear to auscultation bilaterally HEART: Regular rate and rhythm, normal S1 and S2, no murmurs, rubs or gallops, peripheral pulses normal and equal bilaterally. ABDOMEN: Soft, nontender, normoactive bowel sounds. No guarding, no rebound. No masses EXTREMITIES : Normal inspection, Normal range of motion, no edema. No clubbing or cyanosis. NEUROLOGICAL: Cranial nerves II through XII grossly intact. Normal speech, normal gait, no focal sensorimotor deficits SKIN: Warm, Dry, normal turgor, no rashes or lesions noted. ED Treatment Course - LABORATORY CBC & Chemistry Diagram: 12/08/17 17:50 12/08/17 17:50 Medical Decision Making - Medical Decision Making 12/08/17 17:31 82 yo M with h/o Alzheimer dementia, HTN, HLD, NIDDM, ESRD ( Dialysis on ,, ) who presents with increased confusion beginning ( 12/05/2017) with increased forgetfulness. No agitation. Denies head/back/neck trauma Patient denies N/V, F/C, CP, SOB, lightheadedness, dizziness, urinary complaints, abdominal pain, bowel complaints, weakness, sensory changes. Denies h/o TIA/ CVA. Dialysis today, and advised to come to ED for head CT. Dr. Bart Tanner Cloth Printing Utility Worker. Physical exam with absent neuro deficits. Will evaluate patient for underlying electrolyte abnormalities, metabolic derangements, or sources of infection. Will also consider CVA/TIA. ED Course CBC, CMP, UA, Cardiac profile EKG, CXR CT HEAD CXR: No acute cardiopulmonary pathology 12/08/17 18:53 CT HEAD: No acute hemmorhage, mass, or lesion. 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 12/08/17 19:01 *DC/Admit/Observation/Transfer - Referrals Referrals: ON STAFF,NOT [Primary Care Provider] - - Patient Instructions - Post Discharge Activity
--- NOTE | 2017-12-08 18:18 | PDOC ---
Attending Attestation - Resident Resident Name: Samuel Kulkarni - ED Attending Attestation I have performed the following: I have examined & evaluated the patient, The case was reviewed & discussed with the resident, I agree w/resident's findings & plan, Exceptions are as noted - HPI HPI: 12/08/17 18:16 82y M hx of htn, alzheimbers, DM1, ESRD (Tu, Lela, Sat, last dilaysis today), presents with AMS per , since 12/05, he has been more confused and forgetful than usual. It has been getting worse recently, so much so that when she went to work, he wandered out and came back hours later. The pt denies any complaints currently. deneis any cp, sob,headache, dizziness, vision changes, numbness/tingling/weakness, palpitations, abd pain, n/v. is concerned that the patient may not be able to safely make it to dialysis on his own like he has been, and is not safe at home. pts exam unremarkble neuro exam unremarkable - movement symemtrical, ao x 1, sensation intact throughout, no facial assymetry card: rrr, no ,m/r/g abd: sof tnontender suspect worsening dementia will rule out organic cause of worsening memory will observe the patient for case management to see if he can get some assistance at home 12/08/17 19:[address] head notable for lacunar infarct of unknown duration stable for med/surg obs awiating hospitalist to get back to me 12/08/17 20:[address] jordan agree with admission for furfther management - Physicial Exam PE: 12/08/17 20:06 see above - Medical Decision Making 12/08/17 20:06 see above Discharge Disposition - Diagnosis Lacunar infarction, ESRD (end stage renal disease) Dementia Qualifiers: Dementia type: unspecified type Dementia behavioral disturbance: without behavioral disturbance Qualified Code(s): F03.90 - Unspecified dementia without behavioral disturbance - Discharge Dispostion Condition at time of disposition: Stable Last Admission D/C Date: 11/27/17 Admit: Yes - Referrals - Patient Instructions - Post Discharge Activity Heart Score/ECG Review - ECG Impressions Comment:: 12/08/17 19:49 EKG performed at 16:47 NSR LAeft axis devaiation Rate of 70 no acute signs of ischemia NIH Stroke Scale - Last Known Well Date/Time & Onset Date Last Known Well: 12/06/17 Time Last Known Well: 00:00 (gradual onset ocnfusion, no clear onset) - Initial Evaluation Level of consciousness: Alert Ask patient the month and their age: Answers both correctly Ask patient to open & close eyes; make fist and let go: Obeys both correctly Best gaze (horizontal eye movement): Normal Visual field testing: No visual field loss Facial paresis (Show teeth/raise eyebrows/close eyes tight): Normal symmetrical movement Motor Function: Left Arm: Normal Motor Function: Right Arm: Normal (extends arm 90 (or 45) degrees for 10 seconds without drift Motor Function: Left Leg: Normal (extends leg 30 degrees for 5 seconds without drift) Motor Function: Right Leg: Normal (extends leg 30 degrees for 5 seconds without drift) Limb Ataxia: No ataxia Sensory(Use pinprick test arms,legs,trunk,face/side to side): Normal Best language (Describe picture, name items, read sentences): No Aphasia Dysarthria (read several words): Normal articulation Extinction and Inattention: No abnormality - Total Score NIH Stroke Scale Score: 0 tPA Exclusion Checklist 0-3hr - Time Elapsed Date last known well: 12/06/17 Time last known well: 00:00 (gradual onset, exact onset unclear) Elaspsed time: 4 Day(s) and 8 Hour(s) and 31 Minutes - Thrombolytic Therapy Candidate Is the patient eligible for Thrombolytic Therapy?: No - Ineligibility reason(s) Reasons No tPA given: Outside of window - delayed arrival (exact onset unknown)
[2017-12-08 18:36] LABS: URINE APPEARANCE CLEAR; URINE BILIRUBIN NEGATIVE (NEGATIVE); URINE BLOOD NEGATIVE (NEGATIVE); URINE COLOR YELLOW; URINE GLUCOSE (UA) 1+ (NEGATIVE); URINE KETONE NEGATIVE (NEGATIVE); URINE LEUK ESTERASE NEGATIVE (NEGATIVE); URINE NITRITE NEGATIVE (NEGATIVE); URINE UROBILINOGEN NEGATIVE mg/dL (0.2-1.0)
[2017-12-08 18:38] LABS: BASO % 0.6 % (0-2.0); EOS % 1.9 % (0-4.5); HEMATOCRIT 31.3 % (35.4-49); HEMOGLOBIN 10.5 GM/dL (11.7-16.9); LYMPH % 13.2 % (8-40); MCH 32.2 pg (25.7-33.7); MCHC 33.5 g/dl (32.0-35.9); MEAN PLT VOLUME 8.8 fl (7.5-11.1); MONO % 18.2 % (3.8-10.2); NEUT % 66.1 % (42.8-82.8); PLATELET COUNT 375 K/MM3 (134-434); RBC 3.26 M/mm3 (4.00-5.60); RDW 14.5 % (11.9-15.9); WHITE BLOOD COUNT 8.9 K/mm3 (4.0-10.0)
[2017-12-08 18:43] LABS: INR 1.05 (0.82-1.09); PROTHROMBIN TIME (PATIENT) 11.9 SEC (9.98-11.88)
[2017-12-08 18:54] LABS: ALBUMIN 2.7 g/dl (3.4-5.0); ANION GAP 6 (8-16); BILIRUBIN,TOTAL 0.5 mg/dL (0.2-1.0); BLOOD UREA NITROGEN 16 mg/dL (7-18); CALCIUM 7.5 mg/dL (8.5-10.1); CHLORIDE 103 mmol/L (98-107); CO2 29 mmol/L (21-32); CREATININE 3.1 mg/dL (0.7-1.3); GLUCOSE,RANDOM 198 mg/dL (74-106); POTASSIUM 3.5 mmol/L (3.5-5.1); SGOT/AST 12 U/L (15-37); SGPT/ALT 13 U/L (12-78); SODIUM 138 mmol/L (136-145); TOT PROT 6.3 g/dl (6.4-8.2); URINE PROTEIN 3+ (NEGATIVE)
[2017-12-08 18:55] LABS: ALK PHOS 100 U/L (45-117)
[2017-12-08 19:00] LABS: EPI CELLS RARE /HPF (FEW); URINE BACTERIA RARE /hpf (NONE SEEN); URINE MUCUS RARE
--- NOTE | 2017-12-08 20:50 | HP ---
CHIEF COMPLAINT: increase confusion PCP:Dr. Flip Hanna HISTORY OF PRESENT ILLNESS: Pt is an 82 y/o M poor historian hx of htn, alzheimbers, DM1, ESRD (Tu, Lela, Sat, last dilaysis today), presents with AMS per , since 12/05, he has been more confused and forgetful than usual. It has been getting worse recently, so much so that when she went to work, he wandered out and came back hours later. The pt denies any complaints currently. deneis any cp, sob,headache, dizziness, vision changes, numbness/tingling/ weakness, palpitations, abd pain, n/v. is concerned that the patient may not be able to safely make it to dialysis on his own like he has been, and is not safe at home. ER course was notable for: (1) CT head : lacunar imfarct : of left caudate nu PAST MEDICAL HISTORY: DM, ESRD, anemia, HTN PAST SURGICAL HISTORY: L AV fistula. horizontal surgical scar at neck, ? thyroid procedure, abdominal laparotomy scar, ? laparoscopy scars. Pt unable to provide history of surgeries Social History: Smokin cig/d from 21 y/o. quit in 1977 Alcohol: 3 glasses of wine/d once weekly Drugs: denies Family History: denies Allergies corn [[place]] Allergy (Verified 12/08/17 15:49) "ITCHY ALL OVER" CORN No Known Drug Allergies Allergy (Verified 12/08/17 15:49) HOME MEDICATIONS: Home Medications Medication Instructions Recorded Oxycodone HCl/Acetaminophen 1 tab PO Q6H PRN #16 tablet MDD 4 10/28/17 [Percocet 5-325 mg Tablet] Furosemide [Lasix -] 80 mg PO DAILY #60 tablet 11/27/17 Amlodipine Besylate [Norvasc -] 10 mg PO DAILY #30 tablet 11/30/17 Aspirin [ASA -] 325 mg PO DAILY #30 tablet 11/30/17 Insulin Glargine,Hum.rec.anlog 7.5 units SQ DAILY #30 syringe 11/30/17 [Lantus Solostar PEN -] Ranolazine [Ranexa] 500 mg PO BID #60 tab.er.12h 11/30/17 Simvastatin [Zocor -] 20 mg PO HS #30 tablet 11/30/17 REVIEW OF SYSTEMS CONSTITUTIONAL: Absent: fever, chills, diaphoresis, HEENT: Absent: rhinorrhea, nasal congestion, CARDIOVASCULAR: Absent: chest pain, syncope, palpitations, irregular heart rate, RESPIRATORY: Absent: cough, shortness of breath, GASTROINTESTINAL: Absent: abdominal pain, nausea, vomiting, diarrhea, GENITOURINARY: Absent: dysuria, frequency, urgency, NEUROLOGIC: Absent: headache, focal weakness or paresthesias, dizziness, seizure, PHYSICAL EXAMINATION Vital Signs - 24 hr 12/08/17 15:51 Pulse Rate 84 Respiratory 20 Rate Blood Pressure 124/54 O2 Sat by Pulse 100 Oximetry (%) GENERAL: Awake, ao x1 HEAD: Normal with no signs of trauma. EYES: Pupils equal, round and reactive to light, extraocular movements intact, EARS, NOSE, THROAT: Ears normal, nares patent, oropharynx clear without exudates. LUNGS: Breath sounds equal, clear to auscultation bilaterally. No wheezes, and no crackles. No accessory muscle use. HEART: Regular rate and rhythm, normal S1 and S2 without murmur, ABDOMEN: Soft, nontender, not distended, normoactive bowel sounds, UPPER EXTREMITIES: 2+ pulses, warm, well-perfused. L arm with fistula with thrill. LOWER EXTREMITIES: warm, well-perfused. No calf tenderness. No peripheral edema. NEUROLOGICAL: Cranial nerves II-XII intact. Normal speech. SKIN: Warm, dry, Laboratory Results - last 24 hr 12/08/17 12/08/17 12/08/17 17:50 17:50 17:50 WBC 8.9 RBC 3.26 L D Hgb 10.5 L D Hct 31.3 L D MCV 96.0 MCH 32.2 MCHC 33.5 RDW 14.5 Plt Count 375 D MPV 8.8 Neutrophils % 66.1 D Lymphocytes % 13.2 D Monocytes % 18.2 H Eosinophils % 1.9 Basophils % 0.6 PT with INR 11.90 H INR 1.05 Sodium Potassium Chloride Carbon Dioxide Anion Gap BUN Creatinine Creat Clearance w eGFR Random Glucose Calcium Total Bilirubin AST ALT Alkaline Phosphatase Creatine Kinase Troponin I Total Protein Albumin Urine Color Yellow Urine Appearance Clear Urine pH 6.0 Ur Specific [place] 1.014 Urine Protein 3+ H Urine Glucose (UA) 1+ H Urine Ketones Negative Urine Blood Negative Urine Nitrite Negative Urine Bilirubin Negative Urine Urobilinogen Negative Ur Leukocyte Esterase Negative Urine WBC (Auto) <1 Urine RBC (Auto) <1 Ur Epithelial Cells Rare Urine Bacteria Rare Urine Mucus Rare 12/08/17 12/08/17 17:50 17:50 WBC RBC Hgb Hct MCV MCH MCHC RDW Plt Count MPV Neutrophils % Lymphocytes % Monocytes % Eosinophils % Basophils % PT with INR INR Sodium 138 Potassium 3.5 D Chloride 103 Carbon Dioxide 29 D Anion Gap 6 L BUN 16 D Creatinine 3.1 H D Creat Clearance w eGFR 19.44 Random Glucose 198 H D Calcium 7.5 L Total Bilirubin 0.5 D AST 12 L D ALT 13 Alkaline Phosphatase 100 D Creatine Kinase 63 Troponin I 0.03 Total Protein 6.3 L Albumin 2.7 L Urine Color Urine Appearance Urine pH Ur Specific [place] Urine Protein Urine Glucose (UA) Urine Ketones Urine Blood Urine Nitrite Urine Bilirubin Urine Urobilinogen Ur Leukocyte Esterase Urine WBC (Auto) Urine RBC (Auto) Ur Epithelial Cells Urine Bacteria Urine Mucus CT head :Lacunar infarct in the body of Left cuadate nucleus is of indeterminate chronicity, no acute intercranial hemmorage. mass effect or hydrocephalus, generalized age appropriate volume loss with moderately severe microvascular ischemic changes, ASSESSMENT/PLAN: Pt is an 82 y/o M poor historian hx of htn, alzheimbers, DM1, ESRD (Thu, Thu, last dilaysis today), presents with AMS per , since . Altered mental status: could be due to increase in forgetfulness from alzheimer , tia, cva Monitor vitals monitor intake output lipid profile carotid Doppler. cardiac monitoring CT head reviewed: notable for lacunar infarct of unknown duration neurology consult tsh, vitamin b12 started on atorvastatin 80mg c/w aspirin physical therapy and social worker palliative care consult #ESRD on HD, , , sat. last HD today nephrology consult: Dr keller. monitor electrolytes #DM BG 198 BGM Novalog sliding scale levemir 10 unit #HTN continue with amlodipine home ,ed monitor # H/O Angian ? contineu ranexa 500 mg PO BID continue with home dose of aspirin 325mg daily #FEN -not on fluids. Due for HD -monitor electrolytes -Renal diet #PPx -scd b/l lower limb #Dispo -tele Visit type - Emergency Visit Emergency Visit: Yes ED Registration Date: 12/08/17 Care time: The patient presented to the Emergency Department on the above date and was hospitalized for further evaluation of their emergent condition. - New Patient This patient is new to me today: Yes Date on this admission: 12/09/17 - Critical Care Critical Care patient: No
--- NOTE | 2017-12-08 21:16 | PN ---
Teaching Attending Note Name of Resident: Harish Lee ATTENDING PHYSICIAN STATEMENT I saw and evaluated the patient. I reviewed the resident's note and discussed the case with the resident. I agree with the resident's findings and plan as documented. SUBJECTIVE: 82 y/o M poor historian with PMH DM, ESRD (T, TH, S) Last HD today, anemia, HTN , and kidney surgery who pesents with AMS. Pt. is poor historian at baseline and family cannot be reached. History obtained from chart. Pt.s stated pt. has been more confused/forgetful recently. Pt.s felt that he is not safe being at home anymore. Pt. states he is ok. Denies any chest pain, pressure or shortness of breath. No dizziness or lightheadedness. OBJECTIVE: Physical: VS: Vital Signs Period Temp Pulse Resp BP Sys/Parekh Pulse Ox Last 24 Hr 98.2 F 72-84 16-20 119-124/54-88 97-100 GEN: NAD, resting in bed AA0X1 HEENT: NCAT, PERRL, throat without erythema or exudates CARD: RRR S1, S2 RESP: CTAB ABD: BSx4, NTD to palpation EXT: - C/C/E NEURO: CN II- XII intact CBCD WBC 8.9 K/mm3 (4.0-10.0) 12/08/17 17:50 RBC 3.26 M/mm3 (4.00-5.60) L D 12/08/17 17:50 Hgb 10.5 GM/dL (11.7-16.9) L D 12/08/17 17:50 Hct 31.3 % (35.4-49) L D 12/08/17 17:50 MCV 96.0 fl (80-96) 12/08/17 17:50 MCHC 33.5 g/dl (32.0-35.9) 12/08/17 17:50 RDW 14.5 % (11.9-15.9) 12/08/17 17:50 Plt Count 375 K/MM3 (134-434) D 12/08/17 17:50 MPV 8.8 fl (7.5-11.1) 12/08/17 17:50 CMP Sodium 138 mmol/L (136-145) 12/08/17 17:50 Potassium 3.5 mmol/L (3.5-5.1) D 12/08/17 17:50 Chloride 103 mmol/L (98-107) 12/08/17 17:50 Carbon Dioxide 29 mmol/L (21-32) D 12/08/17 17:50 Anion Gap 6 (8-16) L 12/08/17 17:50 BUN 16 mg/dL (7-18) D 12/08/17 17:50 Creatinine 3.1 mg/dL (0.7-1.3) H D 12/08/17 17:50 Creat Clearance w eGFR 19.44 (>60) 12/08/17 17:50 Random Glucose 198 mg/dL (74-106) H D 12/08/17 17:50 Calcium 7.5 mg/dL (8.5-10.1) L 12/08/17 17:50 Total Bilirubin 0.5 mg/dL (0.2-1.0) D 12/08/17 17:50 AST 12 U/L (15-37) L D 12/08/17 17:50 ALT 13 U/L (12-78) 12/08/17 17:50 Alkaline Phosphatase 100 U/L (45-117) D 12/08/17 17:50 Total Protein 6.3 g/dl (6.4-8.2) L 12/08/17 17:50 Albumin 2.7 g/dl (3.4-5.0) L 12/08/17 17:50 CARDIAC ENZYMES Creatine Kinase 63 IU/L (39-308) 12/08/17 17:50 Troponin I 0.03 ng/ml (0.00-0.05) 12/08/17 17:50 Home Medications Medication Instructions Recorded Oxycodone HCl/Acetaminophen 1 tab PO Q6H PRN #16 tablet MDD 4 10/28/17 [Percocet 5-325 mg Tablet] Furosemide [Lasix -] 80 mg PO DAILY #60 tablet 11/27/17 Amlodipine Besylate [Norvasc -] 10 mg PO DAILY #30 tablet 11/30/17 Aspirin [ASA -] 325 mg PO DAILY #30 tablet 11/30/17 Insulin Glargine,Hum.rec.anlog 7.5 units SQ DAILY #30 syringe 11/30/17 [Lantus Solostar PEN -] Ranolazine [Ranexa] 500 mg PO BID #60 tab.er.12h 11/30/17 Simvastatin [Zocor -] 20 mg PO HS #30 tablet 11/30/17 EKG performed at 16:47 NSR LAeft axis devaiation Rate of 70 no acute signs of ischemia CT HEAD- Lacunar infarct in the body of Left cuadate nucleus is of indeterminate chronicity, no acute intercranial hemmorage. mass effect or hydrocephalus, generalized age appropriate volume loss with moderately severe microvascular ischemic changes, CXR- PENDIBG ASSESSMENT AND PLAN: 82 y/o M poor historian with PMH DM, ESRD (T, , S) Last HD today, anemia, HTN , and kidney surgery who pesents with AMS, Found to have a lacunar infarct of indeterminate age. 1.) CVA - Echo/Carotids - MRI BRAIN WO con - Lipid Panel/HgbA1c - TSH, B12, folate - Neuro consult - C/W ASA/STATIN Atorvastatin 80 - SW consult for placement - PT - S&Swallow eval 2.) ESRD on HD //S - S/P HD today - Nephro consult 3.) HTN - C/W Home meds 4.) DVT PPx - SCDS Place in Med Tele
[2017-12-08] MEDS ORDERED: PATIENT'S OWN MEDICATION (NON-FORMULARY) (Simvastatin 20 MG) PO SCH (22:00)
[2017-12-08] MEDS ORDERED: ATORVASTATIN CA 10 MG TABLET (FP) PO SCH (22:00)
[2017-12-08] MEDS ORDERED: ATORVASTATIN CA 80 MG TABLET (FP) ONE (22:37)
[2017-12-08] MEDS: ATORVASTATIN CA 80 MG TABLET (FP) PO SCH (22:44)
[2017-12-08] MEDS: RANOLAZINE E.R. 500 MG TABLET (FP) PO SCH (22:44)
[2017-12-08] MEDS: INSULIN SLIDING SCALE (NOVOLOG) 1 VIAL SQ SCH (22:45)
[2017-12-08] MEDS ORDERED: INSULIN (NOVOLOG) ASPART 100 UNITS/ML 10ML VIAL ONE (22:47)
[2017-12-09] MEDS: INSULIN SLIDING SCALE (NOVOLOG) 1 VIAL SQ SCH ×4 (07:15→21:48)
[2017-12-09 07:49] LABS: BASO % 0.9 % (0-2.0); EOS % 2.2 % (0-4.5); HEMOGLOBIN 10.6 GM/dL (11.7-16.9); LYMPH % 20.3 % (8-40); MCH 31.2 pg (25.7-33.7); MCHC 32.2 g/dl (32.0-35.9); MEAN CELL VOLUME 96.8 fl (80-96); MEAN PLT VOLUME 9.1 fl (7.5-11.1); MONO % 15.9 % (3.8-10.2); NEUT % 60.7 % (42.8-82.8); PLATELET COUNT 348 K/MM3 (134-434); RBC 3.41 M/mm3 (4.00-5.60); RDW 14.5 % (11.9-15.9); WHITE BLOOD COUNT 12.3 K/mm3 (4.0-10.0)
--- NOTE | 2017-12-09 08:05 | EKG ---
Test Reason : Blood Pressure : / mmHG Vent. Rate : 069 BPM Atrial Rate : 069 BPM P-R Int : 152 ms QRS Dur : 108 ms QT Int : 424 ms P-R-T Axes : 077 -39 049 degrees QTc Int : 454 ms NORMAL SINUS RHYTHM LEFT AXIS DEVIATION ANTEROSEPTAL INFARCT , AGE UNDETERMINED ABNORMAL ECG WHEN COMPARED WITH ECG OF 26-NOV-2017 02:06, ANTEROSEPTAL INFARCT IS NOW PRESENT NONSPECIFIC T WAVE ABNORMALITY NOW EVIDENT IN ANTERIOR LEADS Confirmed by DAREN VELIZ, RICARDA ([id number]) on 12/09/2017 8:04:57 AM Referred By: Confirmed By:RICARDA MERCEDES MD
[2017-12-09 08:17] LABS: CALCIUM 7.5 mg/dL (8.5-10.1); CHLORIDE 106 mmol/L (98-107); POTASSIUM 3.7 mmol/L (3.5-5.1); SODIUM 142 mmol/L (136-145)
--- NOTE | 2017-12-09 08:17 | PN ---
Teaching Attending Note Name of Resident: Huang Wasserman ATTENDING PHYSICIAN STATEMENT I saw and evaluated the patient. I reviewed the resident's note and discussed the case with the resident. I agree with the resident's findings and plan as documented. SUBJECTIVE: Patient is comfortable with no acute distress. No shortness of breath. No fever or chills. OBJECTIVE: Vital Signs Temperature 99 F 12/09/17 06:50 Pulse Rate 68 12/09/17 06:50 Respiratory Rate 14 12/09/17 06:50 Blood Pressure 132/68 12/09/17 06:50 O2 Sat by Pulse Oximetry (%) 98 12/09/17 06:50 CBCD WBC 12.3 K/mm3 (4.0-10.0) H D 12/09/17 06:40 RBC 3.41 M/mm3 (4.00-5.60) L 12/09/17 06:40 Hgb 10.6 GM/dL (11.7-16.9) L 12/09/17 06:40 Hct 33.0 % (35.4-49) L 12/09/17 06:40 MCV 96.8 fl (80-96) H 12/09/17 06:40 MCHC 32.2 g/dl (32.0-35.9) 12/09/17 06:40 RDW 14.5 % (11.9-15.9) 12/09/17 06:40 Plt Count 375 K/MM3 (134-434) D 12/08/17 17:50 MPV 9.1 fl (7.5-11.1) 12/09/17 06:40 CMP Sodium 138 mmol/L (136-145) 12/08/17 17:50 Potassium 3.5 mmol/L (3.5-5.1) D 12/08/17 17:50 Chloride 103 mmol/L (98-107) 12/08/17 17:50 Carbon Dioxide 29 mmol/L (21-32) D 12/08/17 17:50 Anion Gap 6 (8-16) L 12/08/17 17:50 BUN 16 mg/dL (7-18) D 12/08/17 17:50 Creatinine 3.1 mg/dL (0.7-1.3) H D 12/08/17 17:50 Creat Clearance w eGFR 19.44 (>60) 12/08/17 17:50 Random Glucose 198 mg/dL (74-106) H D 12/08/17 17:50 Calcium 7.5 mg/dL (8.5-10.1) L 12/08/17 17:50 Total Bilirubin 0.5 mg/dL (0.2-1.0) D 12/08/17 17:50 AST 12 U/L (15-37) L D 12/08/17 17:50 ALT 13 U/L (12-78) 12/08/17 17:50 Alkaline Phosphatase 100 U/L (45-117) D 12/08/17 17:50 Total Protein 6.3 g/dl (6.4-8.2) L 12/08/17 17:50 Albumin 2.7 g/dl (3.4-5.0) L 12/08/17 17:50 CARDIAC ENZYMES Creatine Kinase 63 IU/L (39-308) 12/08/17 17:50 Troponin I 0.03 ng/ml (0.00-0.05) 12/08/17 17:50 Current Medications Generic Name Dose Route Start Last Admin Trade Name Freq PRN Reason Stop Dose Admin Amlodipine Besylate 10 mg 12/09/17 10:00 Norvasc - PO DAILY [facility] Aspirin 325 mg 12/09/17 10:00 Asa - PO DAILY [facility] Atorvastatin Calcium 80 mg 12/08/17 22:00 12/08/17 22:44 Lipitor - PO 80 mg HS [facility] Administration Furosemide 80 mg 12/09/17 10:00 Lasix - PO DAILY [facility] Insulin Aspart 1 vial 12/08/17 22:00 12/09/17 07:15 Novolog Vial Sliding Scale - SQ Not Given [facility] Protocol Insulin Detemir 10 units 12/09/17 22:00 Levemir Vial SQ HS [facility] Ranolazine 500 mg 12/08/17 22:00 12/08/17 22:44 Ranexa - PO 500 mg BID [facility] Administration Home Medications Medication Instructions Recorded Oxycodone HCl/Acetaminophen 1 tab PO Q6H PRN #16 tablet MDD 4 10/28/17 [Percocet 5-325 mg Tablet] Furosemide [Lasix -] 80 mg PO DAILY #60 tablet 11/27/17 Amlodipine Besylate [Norvasc -] 10 mg PO DAILY #30 tablet 11/30/17 Aspirin [ASA -] 325 mg PO DAILY #30 tablet 11/30/17 Insulin Glargine,Hum.rec.anlog 7.5 units SQ DAILY #30 syringe 11/30/17 [Lantus Solostar PEN -] Ranolazine [Ranexa] 500 mg PO BID #60 tab.er.12h 11/30/17 Simvastatin [Zocor -] 20 mg PO HS #30 tablet 11/30/17 CT head :Lacunar infarct in the body of Left cuadate nucleus is of indeterminate chronicity, no acute intracranial hemorrhage. mass effect or hydrocephalus, generalized age appropriate volume loss with moderately severe microvascular ischemic changes. PE: NO focal neuro deficit, grossly intact CN2-12. rest of PE per resident's note ASSESSMENT/PLAN: Pt is an 82 y/o poor historian male with PMHx of HTN, alzheimers, T1DM, ESRD ( Tu, Lela, Sat, last dialysis laysis today),presents with AMS per , since . #Acute Altered mental status: continue atorvastatin 80mg, and aspirin. CT of the head as above, will get neuro to evaluate the patient. physical therapy and social work job titles consult. follow carotid duplex, follow neuro recommendations. #ESRD on HD (TTRSat); nephrology consult: Dr keller. will monitor the electrolytes. #DM: SS with coverage , continue levemir #HTN : continue home meds amlodipine # Hx of Angina continue Ranexa 500 mg PO BID, continue Aspirin and Lipitor Renal diet DVT PPx :scd b/l lower limb
[2017-12-09 08:23] LABS: MAGNESIUM 1.9 mg/dL (1.8-2.4)
[2017-12-09 08:36] LABS: ALBUMIN 2.5 g/dl (3.4-5.0); TOT PROT 6.3 g/dl (6.4-8.2)
[2017-12-09 09:01] LABS: ALK PHOS 97 U/L (45-117); ANION GAP 13 (8-16); BILIRUBIN,TOTAL 0.4 mg/dL (0.2-1.0); BLOOD UREA NITROGEN 22 mg/dL (7-18); CHOLESTEROL 175 mg/dL (50-200); CO2 23 mmol/L (21-32); CREATININE 4.1 mg/dL (0.7-1.3); GLUCOSE,RANDOM 87 mg/dL (74-106); PHOSPHOROUS 2.7 mg/dL (2.5-4.9); SGOT/AST 15 U/L (15-37); SGPT/ALT 13 U/L (12-78); TRIGLYCERIDES 89 mg/dL (35-160)
[2017-12-09 09:10] LABS: LDL CHOLESTEROL (ONLY SJRH) 117 mg/dL (5-100)
[2017-12-09 09:18] LABS: HDL CHOLESTEROL 48 mg/dL (40-60)
[2017-12-09] MEDS: ASPIRIN 325 MG TABLET PO SCH (11:07)
[2017-12-09] MEDS: amLODIPine BESYLATE 10 MG TABLET (FP) PO SCH (11:08)
[2017-12-09] MEDS: RANOLAZINE E.R. 500 MG TABLET (FP) PO SCH ×2 (11:08→21:46)
[2017-12-09] MEDS: FUROSEMIDE 40 MG TABLET (FP) PO SCH (11:08)
[2017-12-09] MEDS ORDERED: INSULIN REGULAR HUMAN 100 UNITS/ML *VIAL ONE (13:09)
--- NOTE | 2017-12-09 13:20 | CON.NEP ---
Consult Consult Specialty:: Nephrology Referred by:: Dr. Mendez Reason for Consultation:: ESRD no HD - History of Present Illness Chief Complaint: Consfusion History of Present Illness: This is a 82 year old gentleman with PMhx of ESRD recently stated on dialysis, DM, Hypertension, ALzheimhers who presented from home with confusion as per and found to have acute/subacute CVA. Pt denies any symtoms. No muscle weakness, dysarthria, facial asymmetry, numbness. Pt is on ASA at home. Last dialysis was yesterday. Denies any sob, chest pain, abd pain, N/V/D. - History Source History Provided By: Patient Limitations to Obtaining History: No Limitations - Past Medical History Cardio/Vascular: Yes: CAD, HTN Renal/: Yes: Renal Failure, Renal Inusuff, Hemodialysis - Alcohol/Substance Use Hx Alcohol Use: No - Smoking History Smoking history: Former smoker Have you smoked in the past 12 months: No If you are a former smoker, when did you quit?: 25 YRS Home Medications - Allergies Allergies/Adverse Reactions: Allergies Allergy/AdvReac Type Severity Reaction Status Date / Time corn [Page] Allergy "ITCHY ALL Verified 12/08/17 15:49 OVER" No Known Drug Allergies Allergy Verified 12/08/17 15:49 - Home Medications Home Medications: Ambulatory Orders Oxycodone HCl/Acetaminophen [Percocet 5-325 mg Tablet] 1 tab PO Q6H PRN #16 tablet MDD 4 10/28/17 Furosemide [Lasix -] 80 mg PO DAILY #60 tablet 11/27/17 Amlodipine Besylate [Norvasc -] 10 mg PO DAILY #30 tablet 11/30/17 Aspirin [ASA -] 325 mg PO DAILY #30 tablet 11/30/17 Insulin Glargine,Hum.rec.anlog [Lantus Solostar PEN -] 7.5 units SQ DAILY #30 syringe 11/30/17 Ranolazine [Ranexa] 500 mg PO BID #60 tab.er.12h 11/30/17 Simvastatin [Zocor -] 20 mg PO HS #30 tablet 11/30/17 Family Disease History - Family Disease History Family History: Unremarkable Review of Systems - Review of Systems Constitutional: reports: No Symptoms Eyes: reports: No Symptoms HENT: reports: No Symptoms Neck: reports: No Symptoms Cardiovascular: reports: No Symptoms Respiratory: reports: No Symptoms Gastrointestinal: reports: No Symptoms Genitourinary: reports: No Symptoms Musculoskeletal: reports: No Symptoms Integumentary: reports: No Symptoms Neurological: reports: No Symptoms Nephrology Consult - Height Height: 5 ft 1 in - Weight Weight: 49.895 kg - BMI Body Mass Index (BMI): 20.7 - Lab Results CBC,BMP: CBC, BMP 12/09/17 06:40 12/09/17 06:40 Anion Gap: Anion Gap Anion Gap 13 (8-16) 12/09/17 06:40 - Imaging Chest X-ray: Report Reviewed Cat Scan: Report Reviewed EKG: Report Reviewed - Physical Examination Vital Signs: Vital Signs Temperature 98 F 12/09/17 11:13 Pulse Rate 76 12/09/17 11:13 Respiratory Rate 20 12/09/17 11:13 Blood Pressure 128/60 12/09/17 11:13 O2 Sat by Pulse Oximetry (%) 98 12/09/17 06:50 Constitutional: Yes: Well Nourished, No Distress Eyes: Yes: Conjunctiva Clear HENT: Yes: Atraumatic, Normocephalic Neck: Yes: Supple Cardiovascular: Yes: Regular Rate and Rhythm, S1, S2. No: Murmur, Rub Respiratory: Yes: CTA Bilaterally. No: Rales, Rhonchi, SOB, Wheezes Gastrointestinal: Yes: Normal Bowel Sounds, Soft. No: Tenderness Access for Hemodialysis: AV Fistula Extremities: No: Cold, Cool, Cyanosis Edema: No Neurological: Yes: Alert, Oriented Assessment/Plan 82 year old gentleman with PMhx of ESRD recently stated on dialysis, DM, Hypertension, ALzheimhers who presented from home with confusion as per and found to have acute/subacute CVA. 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
--- NOTE | 2017-12-09 13:52 | PN ---
Physical Exam: SUBJECTIVE: Patient seen and examined at bedside. denies any headache, blurry vision, N/V/D/C. AAOx3 . claims his drop him on her way to work because she can not leave him alone at home. had HD yesterday with no complications . claims he can dance like a rabbit. OBJECTIVE: Vital Signs Period Temp Pulse Resp BP Sys/Parekh Pulse Ox Last 24 Hr 98 F-99 F 68-84 14-20 119-132/54-99 97-100 GENERAL: AAOx3 in NAD Head : NC/AT EYES: PERRLA, EOMI, sclear an icteric, conjuctiva clear. ENT: dry mucous membranes. NECK: full range of motion, supple. LUNGS: Breath sounds equal, clear to auscultation bilaterally, no wheezes, no crackles, no accessory muscle use. HEART: Regular rate and rhythm, S1, S2 without murmur, rub or gallop. ABDOMEN: Soft, nontender, nondistended, normoactive bowel sounds, no guarding, no rebound, EXTREMITIES: 2+ pulses, warm, well-perfused, no edema. NEUROLOGICAL: Cranial nerves II through XII grossly intact. Normal speech, gait not observed.no focal deficit. PSYCH: Normal mood, normal affect. SKIN: Warm, dry, Laboratory Results - last 24 hr 12/08/17 12/08/17 12/08/17 17:50 17:50 17:50 WBC 8.9 RBC 3.26 L D Hgb 10.5 L D Hct 31.3 L D MCV 96.0 MCH 32.2 MCHC 33.5 RDW 14.5 Plt Count 375 D MPV 8.8 Neutrophils % 66.1 D Lymphocytes % 13.2 D Monocytes % 18.2 H Eosinophils % 1.9 Basophils % 0.6 Platelet Comment PT with INR 11.90 H INR 1.05 Sodium Potassium Chloride Carbon Dioxide Anion Gap BUN Creatinine Creat Clearance w eGFR POC Glucometer Random Glucose Calcium Phosphorus Magnesium Total Bilirubin AST ALT Alkaline Phosphatase Creatine Kinase Troponin I Total Protein Albumin Triglycerides Cholesterol Total LDL Cholesterol HDL Cholesterol Vitamin B12 TSH Urine Color Yellow Urine Appearance Clear Urine pH 6.0 Ur Specific [place] 1.014 Urine Protein 3+ H Urine Glucose (UA) 1+ H Urine Ketones Negative Urine Blood Negative Urine Nitrite Negative Urine Bilirubin Negative Urine Urobilinogen Negative Ur Leukocyte Esterase Negative Urine WBC (Auto) <1 Urine RBC (Auto) <1 Ur Epithelial Cells Rare Urine Bacteria Rare Urine Mucus Rare 12/08/17 12/08/17 12/08/17 17:50 17:50 22:36 WBC RBC Hgb Hct MCV MCH MCHC RDW Plt Count MPV Neutrophils % Lymphocytes % Monocytes % Eosinophils % Basophils % Platelet Comment PT with INR INR Sodium 138 Potassium 3.5 D Chloride 103 Carbon Dioxide 29 D Anion Gap 6 L BUN 16 D Creatinine 3.1 H D Creat Clearance w eGFR 19.44 POC Glucometer [phone] Random Glucose 198 H D Calcium 7.5 L Phosphorus Magnesium Total Bilirubin 0.5 D AST 12 L D ALT 13 Alkaline Phosphatase 100 D Creatine Kinase 63 Troponin I 0.03 Total Protein 6.3 L Albumin 2.7 L Triglycerides Cholesterol Total LDL Cholesterol HDL Cholesterol Vitamin B12 TSH Urine Color Urine Appearance Urine pH Ur Specific [place] Urine Protein Urine Glucose (UA) Urine Ketones Urine Blood Urine Nitrite Urine Bilirubin Urine Urobilinogen Ur Leukocyte Esterase Urine WBC (Auto) Urine RBC (Auto) Ur Epithelial Cells Urine Bacteria Urine Mucus 12/09/17 12/09/17 12/09/17 06:40 06:40 06:40 WBC 12.3 H D RBC 3.41 L Hgb 10.6 L Hct 33.0 L MCV 96.8 H MCH 31.2 MCHC 32.2 RDW 14.5 Plt Count 348 MPV 9.1 Neutrophils % 60.7 Lymphocytes % 20.3 D Monocytes % 15.9 H Eosinophils % 2.2 Basophils % 0.9 Platelet Comment No clumping noted PT with INR INR Sodium 142 Potassium 3.7 Chloride 106 Carbon Dioxide 23 D Anion Gap 13 BUN 22 H D Creatinine 4.1 H D Creat Clearance w eGFR 14.08 POC Glucometer Random Glucose 87 D Calcium 7.5 L Phosphorus 2.7 D Magnesium 1.9 Total Bilirubin 0.4 AST 15 D ALT 13 Alkaline Phosphatase 97 Creatine Kinase Troponin I 0.02 D Total Protein 6.3 L Albumin 2.5 L Triglycerides 89 Cholesterol 175 Total LDL Cholesterol 117 H HDL Cholesterol 48 Vitamin B12 593 Cancelled TSH 1.63 Cancelled Urine Color Urine Appearance Urine pH Ur Specific [place] Urine Protein Urine Glucose (UA) Urine Ketones Urine Blood Urine Nitrite Urine Bilirubin Urine Urobilinogen Ur Leukocyte Esterase Urine WBC (Auto) Urine RBC (Auto) Ur Epithelial Cells Urine Bacteria Urine Mucus 12/09/17 07:04 WBC RBC Hgb Hct MCV MCH MCHC RDW Plt Count MPV Neutrophils % Lymphocytes % Monocytes % Eosinophils % Basophils % Platelet Comment PT with INR INR Sodium Potassium Chloride Carbon Dioxide Anion Gap BUN Creatinine Creat Clearance w eGFR POC Glucometer [id number] Random Glucose Calcium Phosphorus Magnesium Total Bilirubin AST ALT Alkaline Phosphatase Creatine Kinase Troponin I Total Protein Albumin Triglycerides Cholesterol Total LDL Cholesterol HDL Cholesterol Vitamin B12 TSH Urine Color Urine Appearance Urine pH Ur Specific [place] Urine Protein Urine Glucose (UA) Urine Ketones Urine Blood Urine Nitrite Urine Bilirubin Urine Urobilinogen Ur Leukocyte Esterase Urine WBC (Auto) Urine RBC (Auto) Ur Epithelial Cells Urine Bacteria Urine Mucus Active Medications Generic Name Dose Route Start Last Admin Trade Name Freq PRN Reason Stop Dose Admin Amlodipine Besylate 10 mg 12/09/17 10:00 12/09/17 11:08 Norvasc - PO 10 mg DAILY [facility]IAN Administration Aspirin 325 mg 12/09/17 10:00 12/09/17 11:07 Asa - PO 325 mg DAILY SEBASTIAN Administration Atorvastatin Calcium 80 mg 12/08/17 22:00 12/08/17 22:44 Lipitor - PO 80 mg HS SEBASTIAN Administration Furosemide 80 mg 12/09/17 10:00 12/09/17 11:08 Lasix - PO 80 mg DAILY SEBASTIAN Administration Insulin Aspart 1 vial 12/08/17 22:00 12/09/17 13:08 Novolog Vial Sliding Scale - SQ 4 units ACHS SEBASTIAN Administration Protocol Insulin Detemir 10 units 12/09/17 22:00 Levemir Vial SQ HS SE[facility]STIAN Ranolazine 500 mg 12/08/17 22:00 12/09/17 11:08 Ranexa - PO 500 mg BID SE[facility]STIAN Administration CBC, BMP 12/09/17 06:40 12/09/17 06:40 CT head :Lacunar infarct in the body of Left cuadate nucleus is of indeterminate chronicity, no acute intercranial hemmorage. mass effect or hydrocephalus, generalized age appropriate volume loss with moderately severe microvascular ischemic changes, Doppler carptid with 70 % stenosis . CXR no acute process . ASSESSMENT/PLAN: Pt is an 82 y/o male hx of htn, alzheimbers, DM1, ESRD , presents with AMS per , since 12/05. admitetd for further evaluation #Altered mental status???Acute/Subacute CVA vs alzhiemer worsening vs TIA * CT head notable for lacunar infarct of unknown duration * and Carotid findings noted * Neurology consulted * Consider MRI * Tele Monitoirng * ECHO report pendnig * Check lipid profile * TSH, vitamin b12 * started on atorvastatin 80mg * c/w aspirin 325 mg daily * physical therapy and geriatric social worker consult #ESRD * on HD, (t,t,s). last HD today * nephrology consult: Dr keller. * monitor electrolytes * Avoid nephrotoxic agents * renal dose for all meds * Fluids and salt restriction # Anemia likely 2/2 ESRD vs low oral intake * In no acute bleeding * Monitor H/H #DM * BG 198 * BGM * ISS * levemir 10 unit #HTN * continue with amlodipine home ,ed * monitor # H/O Angian ? * contineu ranexa 500 mg PO BID * continue with home dose of aspirin 325mg daily #FEN * not on fluids. Due for HD * monitor electrolytes * Renal diet #PPx * scd bothe legs #Dispo * Admit to tele * pending neuro consult Visit type - Emergency Visit Emergency Visit: Yes ED Registration Date: 12/08/17 Care time: The patient presented to the Emergency Department on the above date and was hospitalized for further evaluation of their emergent condition. - New Patient This patient is new to me today: Yes Date on this admission: 12/09/17 - Critical Care Critical Care patient: No
[2017-12-09 18:41] VITALS: BMI 22.2
[2017-12-09] MEDS: ATORVASTATIN CA 80 MG TABLET (FP) PO SCH (21:45)
[2017-12-09] MEDS ORDERED: INSULIN DETEMIR 100 UNITS/ML MDV SQ SCH (22:00)
[2017-12-10] MEDS: INSULIN SLIDING SCALE (NOVOLOG) 1 VIAL SQ SCH ×4 (06:01→21:14)
[2017-12-10 08:48] LABS: BASO % 0.7 % (0-2.0); EOS % 2.5 % (0-4.5); HEMATOCRIT 29.4 % (35.4-49); HEMOGLOBIN 9.6 GM/dL (11.7-16.9); LYMPH % 19.4 % (8-40); MCH 31.6 pg (25.7-33.7); MCHC 32.8 g/dl (32.0-35.9); MEAN CELL VOLUME 96.4 fl (80-96); MEAN PLT VOLUME 8.9 fl (7.5-11.1); MONO % 15.6 % (3.8-10.2); NEUT % 61.8 % (42.8-82.8); PLATELET COUNT 394 K/MM3 (134-434); RBC 3.05 M/mm3 (4.00-5.60); RDW 14.9 % (11.9-15.9); WHITE BLOOD COUNT 10.8 K/mm3 (4.0-10.0)
[2017-12-10 09:13] LABS: ALBUMIN 2.4 g/dl (3.4-5.0); ANION GAP 10 (8-16); BILIRUBIN,TOTAL 0.4 mg/dL (0.2-1.0); BLOOD UREA NITROGEN 37 mg/dL (7-18); CHLORIDE 106 mmol/L (98-107); CO2 23 mmol/L (21-32); CREATININE 5.4 mg/dL (0.7-1.3); GLUCOSE,RANDOM 132 mg/dL (74-106); POTASSIUM 4.1 mmol/L (3.5-5.1); SGOT/AST 9 U/L (15-37); SGPT/ALT 11 U/L (12-78); SODIUM 139 mmol/L (136-145); TOT PROT 5.7 g/dl (6.4-8.2)
[2017-12-10 09:14] LABS: ALK PHOS 92 U/L (45-117)
[2017-12-10] MEDS: ASPIRIN 325 MG TABLET PO SCH (10:08)
[2017-12-10] MEDS: amLODIPine BESYLATE 10 MG TABLET (FP) PO SCH (10:08)
[2017-12-10] MEDS: FUROSEMIDE 40 MG TABLET (FP) PO SCH (10:08)
[2017-12-10] MEDS: RANOLAZINE E.R. 500 MG TABLET (FP) PO SCH ×2 (10:08→21:11)
[2017-12-10 11:59] LABS: CREATININE 1.3 mg/dL (0.7-1.3)
[2017-12-10 12:23] LABS: ANION GAP 8 (8-16); BLOOD UREA NITROGEN 6 mg/dL (7-18); CALCIUM 8.7 mg/dL (8.5-10.1); CHLORIDE 102 mmol/L (98-107); CO2 30 mmol/L (21-32); CREATININE 1.3 mg/dL (0.7-1.3); GLUCOSE,RANDOM 102 mg/dL (74-106); POTASSIUM 4.3 mmol/L (3.5-5.1); SODIUM 140 mmol/L (136-145)
[2017-12-10 12:40] LABS: PHOSPHOROUS 1.1 mg/dL (2.5-4.9)
[2017-12-10] MEDS ORDERED: NAPH,MB-DB/K PH,MBDB POWDER PACKET PO ONE ×2 (13:56→19:14)
--- NOTE | 2017-12-10 14:38 | DS ---
Physical Exam: SUBJECTIVE: Patient seen and examined at bedside. AAOx3 deneis any fever, chills , N/V/D/C. had HD today , his p was replenished and ready to go home. OBJECTIVE: Vital Signs Period Temp Pulse Resp BP Sys/Parekh Pulse Ox Last 24 Hr 98 F-98.9 F 69-93 18-18 113-144/45-72 98-99 PHYSICAL EXAM GENERAL: The patient is awake, alert, and fully oriented, in no acute distress. HEAD: Normal with no signs of trauma. EYES: sclera anicteric, conjunctiva clear. ENT:moist mucous membranes. NECK: supple. LUNGS: Breath sounds equal, clear to auscultation bilaterally, no wheezes, no crackles, no accessory muscle use. HEART: Regular rate and rhythm, S1, S2 without murmur, rub or gallop. ABDOMEN: Soft, nontender, nondistended, normoactive bowel sounds, no guarding, no rebound, EXTREMITIES: 2+ pulses, warm, well-perfused, no edema. NEUROLOGICAL: Cranial nerves II through XII grossly intact. Normal speech, gait not observed. PSYCH: Normal mood, normal affect. SKIN: Warm, dry, LABS Laboratory Results - last 24 hr 12/09/17 12/10/17 12/10/17 21:43 05:30 05:52 WBC RBC Hgb Hct MCV MCH MCHC RDW Plt Count MPV Neutrophils % Lymphocytes % Monocytes % Eosinophils % Basophils % Sodium Potassium Chloride Carbon Dioxide Anion Gap BUN Creatinine Creat Clearance w eGFR POC Glucometer 165 49 72 Random Glucose Calcium Phosphorus Total Bilirubin AST ALT Alkaline Phosphatase Total Protein Albumin 12/10/17 12/10/17 12/10/17 06:17 07:15 07:15 WBC 10.8 H RBC 3.05 L Hgb 9.6 L Hct 29.4 L MCV 96.4 H MCH 31.6 MCHC 32.8 RDW 14.9 Plt Count 394 MPV 8.9 Neutrophils % 61.8 Lymphocytes % 19.4 Monocytes % 15.6 H Eosinophils % 2.5 Basophils % 0.7 Sodium 139 Potassium 4.1 Chloride 106 Carbon Dioxide 23 Anion Gap 10 BUN 37 H D Creatinine 5.4 H D Creat Clearance w eGFR 10.24 POC Glucometer 104 Random Glucose 132 H D Calcium 7.0 L Phosphorus Total Bilirubin 0.4 AST 9 L D ALT 11 L Alkaline Phosphatase 92 Total Protein 5.7 L Albumin 2.4 L 12/10/17 12/10/17 12/10/17 10:05 10:45 11:23 WBC RBC Hgb Hct MCV MCH MCHC RDW Plt Count MPV Neutrophils % Lymphocytes % Monocytes % Eosinophils % Basophils % Sodium 140 Potassium 4.3 Chloride 102 Carbon Dioxide 30 D Anion Gap 8 BUN 6 L D 6 L Creatinine 1.3 D 1.3 Creat Clearance w eGFR POC Glucometer 103 Random Glucose 102 D Calcium 8.7 D Phosphorus 1.1 L* D Total Bilirubin AST ALT Alkaline Phosphatase Total Protein Albumin CBC, BMP 12/10/17 07:15 12/10/17 10:45 #CT of head (reviewed): Moderate diffuse atrophy with ex vacuo hydrocephalus and diffuse microvascular changes. #Carotid duplex doppler: Moderate (50-69%) carotid stenosis on the right. #CXR no acute process . #EKG : NSR with left axis deviation , no specific St,T wave changes #Echocardiogram with EF 59.2% HOSPITAL COURSE: Date of Admission:12/08/17 Date of Discharge: 12/10/17 is a 82 y/o male with hx of hTN, Alzheimer, DM1, ESRD , presents with AMS per , since 12/05. was admitted to R/O Acute/Subacute CVA ,CT head was done notable for old lacunar infarct,treated with atorvastatin and Aspirin ,b12 593, TSH 1.63 , Neurology consulted recommend to start on Donepezil 5 mg po q am. For his ESRD he had dialysis aleks tolerated well with no complication he will resume his HD(t,t,s) as out patient.he has a history of chronic anemia likely 2/ 2 ESRD , he is no active bleeding , his H/H is stable he will follow up as out patient.for DM we hold home meds and started him on ISS , and Levemir 7.5 , he will resume his home meds upon discharged.his HTN is controlled with his home meds Amlodipine 10 mg po daily. he had Hypophosphatemia replenished and resolved. pt can resume all other home meds as same as prior to admission. pt is hemodynamically stable and ready to Dc home. Discharge Summary Reason For Visit: LACUNAR INFRACTION END STAGE RENAL DISEASE Current Active Problems DM (diabetes mellitus) (Chronic) Dementia (Chronic) ESRD (end stage renal disease) (Chronic) HTN (hypertension) (Chronic) Lacunar infarction (Chronic) Condition: Stable - Instructions Diet, Activity, Other Instructions: you were admitted to the hospital for confusion per , work up come back negative you will discharged home Please resume all you home meds as prescribed prior to admission Please follow up with your primary care physician within one week. Please follow fall precaution Continue your dialysis as scheduled please keep your self hydrated If you develop any fever, chills or your symptoms worsen call 911 or come back to ED. Referrals: ON STAFF,NOT [Primary Care Provider] - 1 Week Disposition: HOME - Home Medications Comprehensive Discharge Medication List: Ambulatory Orders Oxycodone HCl/Acetaminophen [Percocet 5-325 mg Tablet] 1 tab PO Q6H PRN #16 tablet MDD 4 10/28/17 Insulin Glargine,Hum.rec.anlog [Lantus Solostar PEN -] 7.5 units SQ DAILY #30 syringe 11/30/17 Amlodipine Besylate [Norvasc -] 10 mg PO DAILY #30 tablet 12/10/17 Aspirin [ASA -] 325 mg PO DAILY #30 tablet 12/10/17 Furosemide [Lasix -] 80 mg PO DAILY #60 tablet 12/10/17 Ranolazine [Ranexa] 500 mg PO BID #60 tab.er.12h 12/10/17 Simvastatin [Zocor -] 20 mg PO HS #30 tablet 12/10/17
--- NOTE | 2017-12-10 15:55 | PN ---
Progress Note (short form) - Note Progress Note: Renal follow up for ESRD on HD Pt seen and examined at the bedside awake and alert s/p dialysis this am w/o complication no sob, chest pain, abd pain able to ambulate with PT Vital Signs Temperature 98.3 F 12/10/17 14:34 Pulse Rate 74 12/10/17 14:34 Respiratory Rate 18 12/10/17 14:34 Blood Pressure 134/51 12/10/17 14:34 O2 Sat by Pulse Oximetry (%) 99 12/10/17 10:00 Intake & Output 12/07/17 12/08/17 12/09/17 12/10/17 23:59 23:59 23:59 23:59 Intake Total 660 Balance 660 Weight 49.895 kg 50.009 kg 50.167 kg NAD awake and alert RRR CTA No LE edema CBC, BMP 12/10/17 07:15 12/10/17 10:45 Current Medications Amlodipine Besylate (Norvasc -) 10 mg PO DAILY [facility] Last Admin: 12/10/17 10:08 Dose: Not Given Aspirin (Asa -) 325 mg PO DAILY [facility] Last Admin: 12/10/17 10:08 Dose: 325 mg Atorvastatin Calcium (Lipitor -) 80 mg PO HS [facility] Last Admin: 12/09/17 21:45 Dose: 80 mg Furosemide (Lasix -) 80 mg PO DAILY [facility] Last Admin: 12/10/17 10:08 Dose: 80 mg Insulin Aspart (Novolog Vial Sliding Scale -) 1 vial SQ [facility] PRN Reason: Protocol Last Admin: 12/10/17 11:53 Dose: Not Given Insulin Detemir (Levemir Vial) 10 units SQ [facility] Last Admin: 12/09/17 21:47 Dose: 10 units Ranolazine (Ranexa -) 500 mg PO BID [facility] Last Admin: 12/10/17 10:08 Dose: 500 mg 82 year old gentleman with PMhx of ESRD recently stated on dialysis, DM, Hypertension, ALzheimhers who presented from home with confusion as per and found to have acute/subacute CVA. #Acute/Subacute CVA CT and Carotid findings noted Neurology evaluation pending PT working with PT #ESRD on HD tolerated dialysis well this am dose all meds for intermittent HD #Hypophosphatemia ? etiology as pt is eating well getting Neutra phos hold all phos binders give Calcitriol x 1 #Hypertension Continue [place] Arriaga DO
--- NOTE | 2017-12-10 16:34 | CONSULT ---
Consult - text type - Consultation Consultation Note: NEUROLOGY CONSULTATION is greatly appreciated: Events reviewed and discussed with Dr. Allen. CT reviewed. Patient examined this AM during HD at his bedside. This 82 yo RH man with h/o HTN, DM, ASHD, and ESRD gets HD TIW. Carries Dx of Alzheimer's Disease (AD) but not on meds. Maintained on Insulin, lasix, ranexa, amlodipine and oxycodone. Admitted 12/08 after noted increased confusion. Patient wandered out of his home leaving the door opened. CT of head (reviewed): Moderate diffuse atrophy with ex vacuo hydrocephalus and diffuse microvascular changes. Carotid duplex doppler: Moderate (50-69%) carotid stenosis on the right. GILL: AV fistula left arm. R carotid bruit. Cor reg. NEURO: [facility]. November. No year. Trump. Recalls 1 of 3 at 3 mins. + glabella, snout. CN II-XII: normal Motor: No drift. Normal strength. Areflexic in legs. Toes downgoing. No obvious FTN dystaxia on the right. Decreased vib in feet Gait deferred. IMP: Moderate, B/L cerebral dysfunction (OMS, Chronic) c/w Alzheimer's disease. No focality to suggest CVA/TIA. Worsening could suggest Toxic-metabolic encephalopathy (Dialysis Dysequilibrium) SUGGEST: Check B12, TSH, RPR. R/O Occult infection Start donepezil 5 mg q AM Neuro follow-up as out patient to monitor Rx. Thank you very much, Juan Hall MD
--- NOTE | 2017-12-10 16:56 | PN ---
Physical Exam: SUBJECTIVE: Patient seen and examined at bedside. No acute events over night . denies nay fever, chills, N/V/D/C. denies any abdominal pain or chest pain. had HD today with no complications. OBJECTIVE: Vital Signs Period Temp Pulse Resp BP Sys/Parekh Pulse Ox Last 24 Hr 98 F-98.9 F 69-93 18-18 113-144/45-72 98-99 GENERAL: The patient is awake, alert, and fully oriented, in no acute distress. HEAD: Normal with no signs of trauma. EYES: sclera anicteric, conjunctiva clear. ENT:moist mucous membranes. NECK: supple. LUNGS: Breath sounds equal, clear to auscultation bilaterally, no wheezes, no crackles, no accessory muscle use. HEART: Regular rate and rhythm, S1, S2 without murmur, rub or gallop. ABDOMEN: Soft, nontender, nondistended, normoactive bowel sounds, no guarding, no rebound, EXTREMITIES: 2+ pulses, warm, well-perfused, no edema. NEUROLOGICAL: Cranial nerves II through XII grossly intact. Normal speech, gait not observed. PSYCH: Normal mood, normal affect. SKIN: Warm, dry, Laboratory Results - last 24 hr 12/09/17 12/10/17 12/10/17 21:43 05:30 05:52 WBC RBC Hgb Hct MCV MCH MCHC RDW Plt Count MPV Neutrophils % Lymphocytes % Monocytes % Eosinophils % Basophils % Sodium Potassium Chloride Carbon Dioxide Anion Gap BUN Creatinine Creat Clearance w eGFR POC Glucometer 165 49 72 Random Glucose Calcium Phosphorus Total Bilirubin AST ALT Alkaline Phosphatase Total Protein Albumin 12/10/17 12/10/17 12/10/17 06:17 07:15 07:15 WBC 10.8 H RBC 3.05 L Hgb 9.6 L Hct 29.4 L MCV 96.4 H MCH 31.6 MCHC 32.8 RDW 14.9 Plt Count 394 MPV 8.9 Neutrophils % 61.8 Lymphocytes % 19.4 Monocytes % 15.6 H Eosinophils % 2.5 Basophils % 0.7 Sodium 139 Potassium 4.1 Chloride 106 Carbon Dioxide 23 Anion Gap 10 BUN 37 H D Creatinine 5.4 H D Creat Clearance w eGFR 10.24 POC Glucometer 104 Random Glucose 132 H D Calcium 7.0 L Phosphorus Total Bilirubin 0.4 AST 9 L D ALT 11 L Alkaline Phosphatase 92 Total Protein 5.7 L Albumin 2.4 L 12/10/17 12/10/17 12/10/17 10:05 10:45 11:23 WBC RBC Hgb Hct MCV MCH MCHC RDW Plt Count MPV Neutrophils % Lymphocytes % Monocytes % Eosinophils % Basophils % Sodium 140 Potassium 4.3 Chloride 102 Carbon Dioxide 30 D Anion Gap 8 BUN 6 L D 6 L Creatinine 1.3 D 1.3 Creat Clearance w eGFR POC Glucometer 103 Random Glucose 102 D Calcium 8.7 D Phosphorus 1.1 L* D Total Bilirubin AST ALT Alkaline Phosphatase Total Protein Albumin Active Medications Generic Name Dose Route Start Last Admin Trade Name Freq PRN Reason Stop Dose Admin Amlodipine Besylate 10 mg 12/09/17 10:00 12/10/17 10:08 Norvasc - PO Not Given DAILY SEBASTIAN Aspirin 325 mg 12/09/17 10:00 12/10/17 10:08 Asa - PO 325 mg DAILY SEBASTIAN Administration Atorvastatin Calcium 80 mg 12/08/17 22:00 12/09/17 21:45 Lipitor - PO 80 mg HS SEBASTIAN Administration Calcitriol 0.25 mcg 12/10/17 16:15 Rocaltrol - PO DAILY SEBASTIAN Furosemide 80 mg 12/09/17 10:00 12/10/17 10:08 Lasix - PO 80 mg DAILY SEBASTIAN Administration Insulin Aspart 1 vial 12/08/17 22:00 12/10/17 11:53 Novolog Vial Sliding Scale - SQ Not Given ACHS [facility] Protocol Insulin Detemir 10 units 12/09/17 22:00 12/09/17 21:47 Levemir Vial SQ 10 units HS SEBASTIAN Administration Ranolazine 500 mg 12/08/17 22:00 12/10/17 10:08 Ranexa - PO 500 mg BID [facility]STIAN Administration CBC, BMP 12/10/17 07:15 12/10/17 10:45 CT head :Lacunar infarct in the body of Left cuadate nucleus is of indeterminate chronicity, no acute intercranial hemmorage. mass effect or hydrocephalus, generalized age appropriate volume loss with moderately severe microvascular ischemic changes, Doppler carotid with Moderate (50-69%) carotid stenosis on the right. CXR no acute process . ASSESSMENT/PLAN: Pt is an 82 y/o male hx of htn, alzheimbers, DM1, ESRD , presents with AMS per , since 12/05. admitetd for further evaluation #Altered mental status R/O Acute/Subacute CVA vs alzhiemer worsening vs Metabolic encephalopathy due to ESRD * CT head notable for lacunar infarct of unknown duration * and Carotid findings Moderate (50-69%) carotid stenosis on the right. * Neurology consulted : recommended to start on Donepezil 5 mg po Q AM. * Tele Monitoirng * ECHO report with EF 59.2 * Check lipid profile cholesterol 175, ldl 117,hdl 48 * TSH, vitamin b12 WNL * started on atorvastatin 80mg * c/w aspirin 325 mg daily * physical therapy and social worker health services consult * pending social worker health services to DC to assisting living #ESRD, chronic * on HD, (t,t,s). last HD today * nephrology consult: Dr keller. * monitor electrolytes * Avoid nephrotoxic agents * renal dose for all meds * Fluids and salt restriction # Hypophosphatemia , Acute * P 1.2 today after dialysis * replenished * repeat in AM # Anemia likely 2/2 ESRD vs low oral intake * In no acute bleeding * Monitor H/H #DM * BG 198 * BGM * ISS * levemir 10 unit #HTN * continue with amlodipine home ,ed * monitor # H/O Angina * contineu ranexa 500 mg PO BID * continue with home dose of aspirin 325mg daily #FEN * not on fluids. Due for HD * monitor electrolytes, hypophosphatemia replinished. * Renal diet #PPx * scd [facility] legs * pending DC to asiing living as his is refusing to accept him. Visit type - Emergency Visit Emergency Visit: Yes ED Registration Date: 12/08/17 Care time: The patient presented to the Emergency Department on the above date and was hospitalized for further evaluation of their emergent condition. - New Patient This patient is new to me today: No - Critical Care Critical Care patient: No - Discharge Referral Referred to [facility] No
[2017-12-10] MEDS: CALCITRIOL 0.25 MCG CAPSULE (FP) PO SCH (17:47)
--- NOTE | 2017-12-10 19:29 | PN ---
Teaching Attending Note Name of Resident: Huang Wasserman ATTENDING PHYSICIAN STATEMENT I saw and evaluated the patient. I reviewed the resident's note and discussed the case with the resident. I agree with the resident's findings and plan as documented. SUBJECTIVE: OBJECTIVE: Vital Signs Temperature 98.3 F 12/10/17 14:34 Pulse Rate 74 12/10/17 14:34 Respiratory Rate 18 12/10/17 14:34 Blood Pressure 134/51 12/10/17 14:34 O2 Sat by Pulse Oximetry (%) 99 12/10/17 10:00 CBCD WBC 10.8 K/mm3 (4.0-10.0) H 12/10/17 07:15 RBC 3.05 M/mm3 (4.00-5.60) L 12/10/17 07:15 Hgb 9.6 GM/dL (11.7-16.9) L 12/10/17 07:15 Hct 29.4 % (35.4-49) L 12/10/17 07:15 MCV 96.4 fl (80-96) H 12/10/17 07:15 MCHC 32.8 g/dl (32.0-35.9) 12/10/17 07:15 RDW 14.9 % (11.9-15.9) 12/10/17 07:15 Plt Count 394 K/MM3 (134-434) 12/10/17 07:15 MPV 8.9 fl (7.5-11.1) 12/10/17 07:15 CMP Sodium 140 mmol/L (136-145) 12/10/17 10:05 Potassium 4.3 mmol/L (3.5-5.1) 12/10/17 10:05 Chloride 102 mmol/L (98-107) 12/10/17 10:05 Carbon Dioxide 30 mmol/L (21-32) D 12/10/17 10:05 Anion Gap 8 (8-16) 12/10/17 10:05 BUN 6 mg/dL (7-18) L 12/10/17 10:45 Creatinine 1.3 mg/dL (0.7-1.3) 12/10/17 10:45 Creat Clearance w eGFR 10.24 (>60) 12/10/17 07:15 Random Glucose 102 mg/dL (74-106) D 12/10/17 10:05 Calcium 8.7 mg/dL (8.5-10.1) D 12/10/17 10:05 Total Bilirubin 0.4 mg/dL (0.2-1.0) 12/10/17 07:15 AST 9 U/L (15-37) L D 12/10/17 07:15 ALT 11 U/L (12-78) L 12/10/17 07:15 Alkaline Phosphatase 92 U/L (45-117) 12/10/17 07:15 Total Protein 5.7 g/dl (6.4-8.2) L 12/10/17 07:15 Albumin 2.4 g/dl (3.4-5.0) L 12/10/17 07:15 CARDIAC ENZYMES Creatine Kinase 63 IU/L (39-308) 12/08/17 17:50 Troponin I 0.02 ng/ml (0.00-0.05) D 12/09/17 06:40 Current Medications Generic Name Dose Route Start Last Admin Trade Name Abraham PRN Reason Stop Dose Admin Amlodipine Besylate 10 mg 12/09/17 10:00 12/10/17 10:08 Norvasc - PO Not Given DAILY SEBASTIAN Aspirin 325 mg 12/09/17 10:00 12/10/17 10:08 Asa - PO 325 mg DAILY SEBASTIAN Administration Atorvastatin Calcium 80 mg 12/08/17 22:00 12/09/17 21:45 Lipitor - PO 80 mg HS SEBASTIAN Administration Calcitriol 0.25 mcg 12/10/17 16:15 12/10/17 17:47 Rocaltrol - PO 0.25 mcg DAILY SEBASTIAN Administration Donepezil HCl 5 mg 12/11/17 10:00 Aricept - PO DAILY SEBASTIAN Furosemide 80 mg 12/09/17 10:00 12/10/17 10:08 Lasix - PO 80 mg DAILY SEBASTIAN Administration Insulin Aspart 1 vial 12/08/17 22:00 12/10/17 17:14 Novolog Vial Sliding Scale - SQ 6 units ACHS SEBASTIAN Administration Protocol Insulin Detemir 7.5 units 12/10/17 19:10 Levemir Vial SQ HS SEBASTIAN Ranolazine 500 mg 12/08/17 22:00 12/10/17 10:08 Ranexa - PO 500 mg BID SEBASTIAN Administration Home Medications Medication Instructions Recorded Oxycodone HCl/Acetaminophen 1 tab PO Q6H PRN #16 tablet MDD 4 10/28/17 [Percocet 5-325 mg Tablet] Insulin Glargine,Hum.rec.anlog 7.5 units SQ DAILY #30 syringe 11/30/17 [Lantus Solostar PEN -] Amlodipine Besylate [Norvasc -] 10 mg PO DAILY #30 tablet 12/10/17 Aspirin [ASA -] 325 mg PO DAILY #30 tablet 12/10/17 Furosemide [Lasix -] 80 mg PO DAILY #60 tablet 12/10/17 Ranolazine [Ranexa] 500 mg PO BID #60 tab.er.12h 12/10/17 Simvastatin [Zocor -] 20 mg PO HS #30 tablet 12/10/17 CT head :Lacunar infarct in the body of Left cuadate nucleus is of indeterminate chronicity, no acute intracranial hemorrhage. mass effect or hydrocephalus, generalized age appropriate volume loss with moderately severe microvascular ischemic changes. PE: NO focal neuro deficit, grossly intact CN2-12. rest of PE per resident's note ASSESSMENT/PLAN: Pt is an 82 y/o poor historian male with PMHx of HTN, alzheimers, T1DM, ESRD ( Tu, Lela, Sat, last dialysis laysis today),presents with AMS per , since . #Acute Altered mental status: patient is improved . on atorvastatin 80mg, and aspirin now since CT of the head reported possible lacunar infarct in the body of left causdate nucleus. physical therapy and psychiatric social worker consult. follow carotid duplex,and neuro recommendations. #ESRD on HD (TTRSat); nephrology consult: Dr keller. will monitor the electrolytes. #DM: SS with coverage , continue levemir #HTN : continue home meds amlodipine # Hx of Angina continue Ranexa 500 mg PO BID, continue Aspirin and Lipitor Renal diet DVT PPx :scd b/l lower limb
[2017-12-10] MEDS: ATORVASTATIN CA 80 MG TABLET (FP) PO SCH (21:11)
[2017-12-10] MEDS: INSULIN DETEMIR 100 UNITS/ML MDV SQ SCH (21:14)
[2017-12-11] MEDS: INSULIN SLIDING SCALE (NOVOLOG) 1 VIAL SQ SCH ×4 (06:12→21:31)
[2017-12-11 07:27] LABS: BASO % 0.5 % (0-2.0); EOS % 2.2 % (0-4.5); HEMATOCRIT 30.1 % (35.4-49); HEMOGLOBIN 9.8 GM/dL (11.7-16.9); LYMPH % 25.6 % (8-40); MCH 31.6 pg (25.7-33.7); MCHC 32.7 g/dl (32.0-35.9); MEAN CELL VOLUME 96.6 fl (80-96); MEAN PLT VOLUME 8.5 fl (7.5-11.1); MONO % 17.7 % (3.8-10.2); PLATELET COUNT 357 K/MM3 (134-434); RBC 3.11 M/mm3 (4.00-5.60); RDW 14.7 % (11.9-15.9); WHITE BLOOD COUNT 10.2 K/mm3 (4.0-10.0)
[2017-12-11 08:00] LABS: ALBUMIN 2.2 g/dl (3.4-5.0); ALK PHOS 90 U/L (45-117); ANION GAP 7 (8-16); BLOOD UREA NITROGEN 20 mg/dL (7-18); CALCIUM 7.4 mg/dL (8.5-10.1); CHLORIDE 98 mmol/L (98-107); CO2 33 mmol/L (21-32); CREATININE 4.1 mg/dL (0.7-1.3); GLUCOSE,RANDOM 101 mg/dL (74-106); PHOSPHOROUS 3.8 mg/dL (2.5-4.9); POTASSIUM 4.2 mmol/L (3.5-5.1); SGOT/AST 11 U/L (15-37); SGPT/ALT 11 U/L (12-78); SODIUM 138 mmol/L (136-145); TOT PROT 5.7 g/dl (6.4-8.2)
[2017-12-11 08:03] LABS: BILIRUBIN,TOTAL 0.4 mg/dL (0.2-1.0)
--- NOTE | 2017-12-11 08:06 | PN ---
Teaching Attending Note Name of Resident: Huang Wasserman ATTENDING PHYSICIAN STATEMENT I saw and evaluated the patient. I reviewed the resident's note and discussed the case with the resident. I agree with the resident's findings and plan as documented. SUBJECTIVE: Patient is feeling better with no acute distress. OBJECTIVE: Vital Signs Temperature 98.5 F 12/11/17 02:00 Pulse Rate 76 12/11/17 02:00 Respiratory Rate 18 12/11/17 02:00 Blood Pressure 137/61 12/11/17 02:00 O2 Sat by Pulse Oximetry (%) 98 12/10/17 21:00 CBCD WBC 10.2 K/mm3 (4.0-10.0) H 12/11/17 06:02 RBC 3.11 M/mm3 (4.00-5.60) L 12/11/17 06:02 Hgb 9.8 GM/dL (11.7-16.9) L 12/11/17 06:02 Hct 30.1 % (35.4-49) L 12/11/17 06:02 MCV 96.6 fl (80-96) H 12/11/17 06:02 MCHC 32.7 g/dl (32.0-35.9) 12/11/17 06:02 RDW 14.7 % (11.9-15.9) 12/11/17 06:02 Plt Count 357 K/MM3 (134-434) 12/11/17 06:02 MPV 8.5 fl (7.5-11.1) 12/11/17 06:02 CMP Sodium 140 mmol/L (136-145) 12/10/17 10:05 Potassium 4.3 mmol/L (3.5-5.1) 12/10/17 10:05 Chloride 102 mmol/L (98-107) 12/10/17 10:05 Carbon Dioxide 30 mmol/L (21-32) D 12/10/17 10:05 Anion Gap 8 (8-16) 12/10/17 10:05 BUN 6 mg/dL (7-18) L 12/10/17 10:45 Creatinine 1.3 mg/dL (0.7-1.3) 12/10/17 10:45 Creat Clearance w eGFR 10.24 (>60) 12/10/17 07:15 Random Glucose 102 mg/dL (74-106) D 12/10/17 10:05 Calcium 8.7 mg/dL (8.5-10.1) D 12/10/17 10:05 Total Bilirubin 0.4 mg/dL (0.2-1.0) 12/10/17 07:15 AST 9 U/L (15-37) L D 12/10/17 07:15 ALT 11 U/L (12-78) L 12/10/17 07:15 Alkaline Phosphatase 92 U/L (45-117) 12/10/17 07:15 Total Protein 5.7 g/dl (6.4-8.2) L 12/10/17 07:15 Albumin 2.4 g/dl (3.4-5.0) L 12/10/17 07:15 CARDIAC ENZYMES Creatine Kinase 63 IU/L (39-308) 12/08/17 17:50 Troponin I 0.02 ng/ml (0.00-0.05) D 12/09/17 06:40 Current Medications Generic Name Dose Route Start Last Admin Trade Name Freq PRN Reason Stop Dose Admin Amlodipine Besylate 10 mg 12/09/17 10:00 12/10/17 10:08 Norvasc - PO Not Given DAILY SEBASTIAN Aspirin 325 mg 12/09/17 10:00 12/10/17 10:08 Asa - PO 325 mg DAILY SEBASTIAN Administration Atorvastatin Calcium 80 mg 12/08/17 22:00 12/10/17 21:11 Lipitor - PO 80 mg HS SEBASTIAN Administration Calcitriol 0.25 mcg 12/10/17 16:15 12/10/17 17:47 Rocaltrol - PO 0.25 mcg DAILY SEBASTIAN Administration Donepezil HCl 5 mg 12/11/17 10:00 Aricept - PO DAILY SEBASTIAN Furosemide 80 mg 12/09/17 10:00 12/10/17 10:08 Lasix - PO 80 mg DAILY SEBASTIAN Administration Insulin Aspart 1 vial 12/08/17 22:00 12/11/17 06:12 Novolog Vial Sliding Scale - SQ Not Given ACHS [facility] Protocol Insulin Detemir 7.5 units 12/10/17 19:10 12/10/17 21:14 Levemir Vial SQ Not Given HS SEBASTIAN Ranolazine 500 mg 12/08/17 22:00 12/10/17 21:11 Ranexa - PO 500 mg BID SEBASTIAN Administration Home Medications Medication Instructions Recorded Oxycodone HCl/Acetaminophen 1 tab PO Q6H PRN #16 tablet MDD 4 10/28/17 [Percocet 5-325 mg Tablet] Insulin Glargine,Hum.rec.anlog 7.5 units SQ DAILY #30 syringe 11/30/17 [Lantus Solostar PEN -] Amlodipine Besylate [Norvasc -] 10 mg PO DAILY #30 tablet 12/10/17 Aspirin [ASA -] 325 mg PO DAILY #30 tablet 12/10/17 Furosemide [Lasix -] 80 mg PO DAILY #60 tablet 12/10/17 Ranolazine [Ranexa] 500 mg PO BID #60 tab.er.12h 12/10/17 Simvastatin [Zocor -] 20 mg PO HS #30 tablet 12/10/17 CT head :Lacunar infarct in the body of Left cuadate nucleus is of indeterminate chronicity, no acute intracranial hemorrhage. mass effect or hydrocephalus, generalized age appropriate volume loss with moderately severe microvascular ischemic changes. PE:NAD NO focal neuro deficit, grossly intact CN2-12. rest of PE per resident's note ASSESSMENT/PLAN: Pt is an 82 y/o poor historian male with PMHx of HTN, alzheimers, T1DM, ESRD ( , Lela, Thu, last dialysis laysis today),presents with AMS per , since . #Acute Altered mental status: improved. continue atorvastatin 80mg,and aspirin. CT of the head reported possible lacunar infarct in the body of left causdate nucleus. physical therapy and social media content specialist consult. follow carotid duplex report reviewed , appreciate neuro recommendations. #ESRD on HD (TTRSat); nephrology consult: Dr keller. will monitor the electrolytes. #DM: SS with coverage , continue levemir #HTN : continue home meds amlodipine # Hx of Angina continue Ranexa 500 mg PO BID, continue Aspirin and Lipitor Renal diet DVT PPx :scd b/l lower limb waiting for placement
[2017-12-11] MEDS: RANOLAZINE E.R. 500 MG TABLET (FP) PO SCH ×2 (09:13→21:31)
[2017-12-11] MEDS: amLODIPine BESYLATE 10 MG TABLET (FP) PO SCH (09:13)
[2017-12-11] MEDS: ASPIRIN 325 MG TABLET PO SCH (09:13)
[2017-12-11] MEDS: FUROSEMIDE 40 MG TABLET (FP) PO SCH (09:13)
[2017-12-11] MEDS: DONEPEZIL HCL 5 MG TABLET (FP) PO SCH (09:14)
[2017-12-11] MEDS ORDERED: PT OWN MED DRAWER 7, Y5N ONE (11:10)
--- NOTE | 2017-12-11 13:37 | PN ---
Progress Note (short form) - Note Progress Note: Renal follow up for ESRD on HD Pt seen and examined at the bedside no acute complaints s/p dialysis yesterday no sob, chest pain, abd pain Vital Signs Temperature 98.2 F 12/11/17 10:00 Pulse Rate 73 12/11/17 10:00 Respiratory Rate 18 12/11/17 10:00 Blood Pressure 124/55 12/11/17 10:00 O2 Sat by Pulse Oximetry (%) 98 12/10/17 21:00 Intake & Output 12/08/17 12/09/17 12/10/17 12/11/17 23:59 23:59 23:59 23:59 Intake Total 1060 120 Balance 1060 120 Weight 49.895 kg 50.009 kg 50.167 kg 50.349 kg NAD awake and alert RRR CTA No LE edema CBC, BMP 12/11/17 06:02 12/11/17 06:02 Current Medications Amlodipine Besylate (Norvasc -) 10 mg PO DAILY [facility] Last Admin: 12/11/17 09:13 Dose: 10 mg Aspirin (Asa -) 325 mg PO DAILY [facility] Last Admin: 12/11/17 09:13 Dose: 325 mg Atorvastatin Calcium (Lipitor -) 80 mg PO HS [facility] Last Admin: 12/10/17 21:11 Dose: 80 mg Calcitriol (Rocaltrol -) 0.25 mcg PO DAILY [facility] Last Admin: 12/10/17 17:47 Dose: 0.25 mcg Donepezil HCl (Aricept -) 5 mg PO DAILY [facility] Last Admin: 12/11/17 09:14 Dose: 5 mg Furosemide (Lasix -) 80 mg PO DAILY [facility] Last Admin: 12/11/17 09:13 Dose: 80 mg Insulin Aspart (Novolog Vial Sliding Scale -) 1 vial SQ [facility] PRN Reason: Protocol Last Admin: 12/11/17 06:12 Dose: Not Given Insulin Detemir (Levemir Vial) 7.5 units SQ [facility] Last Admin: 12/10/17 21:14 Dose: Not Given Ranolazine (Ranexa -) 500 mg PO BID [facility] Last Admin: 12/11/17 09:13 Dose: 500 mg 82 year old gentleman with PMhx of ESRD recently stated on dialysis, DM, Hypertension, ALzheimhers who presented from home with confusion as per and found to have acute/subacute CVA. #Acute/Subacute CVA CT and Carotid findings noted Neurology eval noted on ASA, Lipitor #ESRD on HD s/p dialysis yesterday next dialysis is planned for tomorrow #Hypophosphatemia improved today #Hypertension Continue Norvasc discharge planning to rehab/NH as per primary Ciro Arriaga DO
[2017-12-11] MEDS: CALCITRIOL 0.25 MCG CAPSULE (FP) PO SCH (16:22)
--- NOTE | 2017-12-11 17:24 | PN ---
Physical Exam: SUBJECTIVE: Patient seen and examined at bedside. No acute events over night, AAOx [address] and people , know month but no year. OBJECTIVE: Vital Signs Period Temp Pulse Resp BP Sys/Parekh Pulse Ox Last 24 Hr 97.6 F-98.5 F 72-76 16-18 124-137/50-71 98 GENERAL: The patient is awake, alert, and fully oriented, in no acute distress. HEAD: Normal with no signs of trauma. EYES: sclera anicteric, conjunctiva clear. ENT:moist mucous membranes. NECK: supple. LUNGS: Breath sounds equal, clear to auscultation bilaterally, no wheezes, no crackles, no accessory muscle use. HEART: Regular rate and rhythm, S1, S2 without murmur, rub or gallop. ABDOMEN: Soft, nontender, nondistended, normoactive bowel sounds, no guarding, no rebound, EXTREMITIES: 2+ pulses, warm, well-perfused, no edema. NEUROLOGICAL: Cranial nerves II through XII grossly intact. Normal speech, gait not observed. PSYCH: Normal mood, normal affect. SKIN: Warm, dry, Laboratory Results - last 24 hr 12/10/17 12/10/17 12/11/17 17:13 21:12 05:18 WBC RBC Hgb Hct MCV MCH MCHC RDW Plt Count MPV Neutrophils % Lymphocytes % Monocytes % Eosinophils % Basophils % Sodium Potassium Chloride Carbon Dioxide Anion Gap BUN Creatinine Creat Clearance w eGFR POC Glucometer 287 85 114 Random Glucose Calcium Phosphorus Total Bilirubin AST ALT Alkaline Phosphatase Total Protein Albumin 12/11/17 12/11/17 12/11/17 06:02 06:02 11:35 WBC 10.2 H RBC 3.11 L Hgb 9.8 L Hct 30.1 L MCV 96.6 H MCH 31.6 MCHC 32.7 RDW 14.7 Plt Count 357 MPV 8.5 Neutrophils % 54.0 Lymphocytes % 25.6 D Monocytes % 17.7 H Eosinophils % 2.2 Basophils % 0.5 Sodium 138 Potassium 4.2 Chloride 98 Carbon Dioxide 33 H Anion Gap 7 L BUN 20 H D Creatinine 4.1 H D Creat Clearance w eGFR 14.08 POC Glucometer 181 Random Glucose 101 Calcium 7.4 L Phosphorus 3.8 D Total Bilirubin 0.4 AST 11 L D ALT 11 L Alkaline Phosphatase 90 Total Protein 5.7 L Albumin 2.2 L 12/11/17 15:59 WBC RBC Hgb Hct MCV MCH MCHC RDW Plt Count MPV Neutrophils % Lymphocytes % Monocytes % Eosinophils % Basophils % Sodium Potassium Chloride Carbon Dioxide Anion Gap BUN Creatinine Creat Clearance w eGFR POC Glucometer 201 Random Glucose Calcium Phosphorus Total Bilirubin AST ALT Alkaline Phosphatase Total Protein Albumin Active Medications Generic Name Dose Route Start Last Admin Trade Name Freq PRN Reason Stop Dose Admin Amlodipine Besylate 10 mg 12/09/17 10:00 12/11/17 09:13 Norvasc - PO 10 mg DAILY SEBASTIAN Administration Aspirin 325 mg 12/09/17 10:00 12/11/17 09:13 Asa - PO 325 mg DAILY SEBASTIAN Administration Atorvastatin Calcium 80 mg 12/08/17 22:00 12/10/17 21:11 Lipitor - PO 80 mg HS SEBASTIAN Administration Calcitriol 0.25 mcg 12/10/17 16:15 12/11/17 16:22 Rocaltrol - PO 0.25 mcg DAILY SEBASTIAN Administration Donepezil HCl 5 mg 12/11/17 10:00 12/11/17 09:14 Aricept - PO 5 mg DAILY SEBASTIAN Administration Epoetin Juan 4,000 unit 12/12/17 06:00 Epogen - IVPUSH 12/12/17 06:01 ONCE ONE Furosemide 80 mg 12/09/17 10:00 12/11/17 09:13 Lasix - PO 80 mg DAILY SEBASTIAN Administration Insulin Aspart 1 vial 12/08/17 22:00 12/11/17 16:24 Novolog Vial Sliding Scale - SQ 4 units ACHS SEBASTIAN Administration Protocol Insulin Detemir 7.5 units 12/10/17 19:10 12/10/17 21:14 Levemir Vial SQ Not Given HS SEBASTIAN Ranolazine 500 mg 12/08/17 22:00 12/11/17 09:13 Ranexa - PO 500 mg BID SEBASTIAN Administration CBC, BMP 12/11/17 06:02 12/11/17 06:02 CT head :Lacunar infarct in the body of Left cuadate nucleus is of indeterminate chronicity, no acute intercranial hemmorage. mass effect or hydrocephalus, generalized age appropriate volume loss with moderately severe microvascular ischemic changes, Doppler carotid with Moderate (50-69%) carotid stenosis on the right. CXR no acute process . ASSESSMENT/PLAN: Pt is an 82 y/o male hx of htn, alzheimbers, DM1, ESRD , presents with AMS per , since 12/05. admitetd for further evaluation #Altered mental status R/O Acute/Subacute CVA vs alzhiemer worsening vs Metabolic encephalopathy due to ESRD * CT head notable for lacunar infarct of unknown duration * and Carotid findings Moderate (50-69%) carotid stenosis on the right. * Neurology consulted : recommended to start on Donepezil 5 mg po Q AM. * Tele Monitoirng * ECHO report with EF 59.2 * Check lipid profile cholesterol 175, ldl 117,hdl 48 * TSH, vitamin b12 WNL * started on atorvastatin 80mg * c/w aspirin 325 mg daily * physical therapy and social contact worker consult * pending social contact worker to [place] to assisting living #ESRD, chronic * on HD, (t,t,s). last HD today * nephrology consult: Dr keller. * monitor electrolytes * Avoid nephrotoxic agents * renal dose for all meds * Fluids and salt restriction # Hypophosphatemia , Acute , corrected * P 1.2 yesterday after dialysis, corrected 3.6 today * replenished # Anemia likely 2/2 ESRD vs low oral intake * In no acute bleeding * Monitor H/H #DM * BG 198 * BGM * ISS * levemir 10 unit #HTN * continue with amlodipine home ,ed * monitor # H/O Angina * contineu ranexa 500 mg PO BID * continue with home dose of aspirin 325mg daily #FEN * not on fluids. Due for HD * monitor electrolytes, hypophosphatemia replinished. * Renal diet #PPx * scd bothe legs * pending DC to asisting living as his is refusing to accept him. # Dispo: pending assesting living placement . Visit type - Emergency Visit Emergency Visit: Yes ED Registration Date: 12/08/17 Care time: The patient presented to the Emergency Department on the above date and was hospitalized for further evaluation of their emergent condition. - New Patient This patient is new to me today: No - Critical Care Critical Care patient: No - Discharge Referral Referred to [facility] No
[2017-12-11] MEDS ORDERED: INSULIN (NOVOLOG) ASPART 100 UNITS/ML 10ML VIAL ONE (21:21)
[2017-12-11] MEDS: ATORVASTATIN CA 80 MG TABLET (FP) PO SCH (21:30)
[2017-12-11] MEDS: INSULIN DETEMIR 100 UNITS/ML MDV SQ SCH (21:31)
[2017-12-12] MEDS: INSULIN SLIDING SCALE (NOVOLOG) 1 VIAL SQ SCH ×4 (06:18→22:43)
[2017-12-12] MEDS ORDERED: EPOETIN ALFA 2,000 UNIT/1 ML VIAL IVPUSH ONE (07:00)
[2017-12-12 08:20] LABS: BASO % 0.5 % (0-2.0); EOS % 0.5 % (0-4.5); HEMATOCRIT 32.3 % (35.4-49); HEMOGLOBIN 10.7 GM/dL (11.7-16.9); LYMPH % 10.3 % (8-40); MCHC 33.2 g/dl (32.0-35.9); MEAN CELL VOLUME 96.5 fl (80-96); MEAN PLT VOLUME 8.6 fl (7.5-11.1); MONO % 12.3 % (3.8-10.2); NEUT % 76.4 % (42.8-82.8); PLATELET COUNT 418 K/MM3 (134-434); RBC 3.35 M/mm3 (4.00-5.60); RDW 14.4 % (11.9-15.9); WHITE BLOOD COUNT 10.7 K/mm3 (4.0-10.0)
[2017-12-12 08:37] LABS: ALBUMIN 2.6 g/dl (3.4-5.0); ANION GAP 9 (8-16); BLOOD UREA NITROGEN 31 mg/dL (7-18); CALCIUM 7.8 mg/dL (8.5-10.1); CHLORIDE 98 mmol/L (98-107); CO2 31 mmol/L (21-32); GLUCOSE,RANDOM 83 mg/dL (74-106); MAGNESIUM 1.9 mg/dL (1.8-2.4); POTASSIUM 4.4 mmol/L (3.5-5.1); SODIUM 138 mmol/L (136-145)
[2017-12-12 08:41] LABS: ALK PHOS 98 U/L (45-117); BILIRUBIN,TOTAL 0.5 mg/dL (0.2-1.0); CREATININE 5.8 mg/dL (0.7-1.3); SGOT/AST 13 U/L (15-37); SGPT/ALT 12 U/L (12-78); TOT PROT 6.1 g/dl (6.4-8.2)
--- NOTE | 2017-12-12 10:36 | PN ---
Progress Note (short form) - Note Progress Note: Renal follow up for ESRD on HD Pt seen and examined during dialysis BP stable, AVF with good flow pt w/o complaints no sob, chest pain Vital Signs Temperature 98.0 F 12/12/17 07:15 Pulse Rate 90 12/12/17 09:50 Respiratory Rate 18 12/12/17 09:50 Blood Pressure 111/59 12/12/17 09:50 O2 Sat by Pulse Oximetry (%) 93 L 12/11/17 21:00 Intake & Output 12/09/17 12/10/17 12/11/17 12/12/17 23:59 23:59 23:59 23:59 Intake Total 1060 120 360 Balance 1060 120 360 Weight 50.009 kg 50.167 kg 50.349 kg 50.519 kg NAD awake and alert RRR CTA No LE edema CBC, BMP 12/12/17 06:45 12/12/17 06:45 Current Medications Amlodipine Besylate (Norvasc -) 10 mg PO DAILY [facility] Last Admin: 12/11/17 09:13 Dose: 10 mg Aspirin (Asa -) 325 mg PO DAILY [facility] Last Admin: 12/11/17 09:13 Dose: 325 mg Atorvastatin Calcium (Lipitor -) 80 mg PO HS [facility] Last Admin: 12/11/17 21:30 Dose: 80 mg Calcitriol (Rocaltrol -) 0.25 mcg PO DAILY [facility] Last Admin: 12/11/17 16:22 Dose: 0.25 mcg Donepezil HCl (Aricept -) 5 mg PO DAILY [facility] Last Admin: 12/11/17 09:14 Dose: 5 mg Furosemide (Lasix -) 80 mg PO DAILY [facility] Last Admin: 12/11/17 09:13 Dose: 80 mg Insulin Aspart (Novolog Vial Sliding Scale -) 1 vial SQ [facility] PRN Reason: Protocol Last Admin: 12/12/17 06:18 Dose: Not Given Insulin Detemir (Levemir Vial) 7.5 units SQ HS [facility] Last Admin: 12/11/17 21:31 Dose: 7.5 unit Ranolazine (Ranexa -) 500 mg PO BID [facility] Last Admin: 12/11/17 21:31 Dose: 500 mg 82 year old gentleman with PMhx of ESRD recently stated on dialysis, DM, Hypertension, ALzheimhers who presented from home with confusion as per and found to have acute/subacute CVA. #Acute/Subacute CVA CT and Carotid findings noted Neurology eval noted on ASA, Lipitor #ESRD on HD tolerated dialysis well today continue renal diet will maintain on 3x weekly dialysis #Hypertension Continue Norvas discharge planning to rehab/NH as per primary Ciro Arriaga DO
[2017-12-12] MEDS ORDERED: PT OWN MED DRAWER 7, Y5N ONE (11:09)
[2017-12-12] MEDS: FUROSEMIDE 40 MG TABLET (FP) PO SCH (11:42)
[2017-12-12] MEDS: amLODIPine BESYLATE 10 MG TABLET (FP) PO SCH (11:42)
[2017-12-12] MEDS: CALCITRIOL 0.25 MCG CAPSULE (FP) PO SCH (11:42)
[2017-12-12] MEDS: DONEPEZIL HCL 5 MG TABLET (FP) PO SCH (11:42)
[2017-12-12] MEDS: RANOLAZINE E.R. 500 MG TABLET (FP) PO SCH ×2 (11:42→22:37)
[2017-12-12] MEDS: ASPIRIN 325 MG TABLET PO SCH (11:42)
--- NOTE | 2017-12-12 17:36 | PN ---
Physical Exam: SUBJECTIVE: Patient seen and examined Patient is comfortable with no acute distress. OBJECTIVE: Vital Signs Period Temp Pulse Resp BP Sys/Parekh Pulse Ox Last 24 Hr 97.6 F-98.8 F 60-90 16-18 111-148/44-84 93-96 GENERAL: The patient is awake, alert, and fully oriented, in no acute distress. HEAD: Normal with no signs of trauma. EYES: PERRL, extraocular movements intact, sclera anicteric, conjunctiva clear. No ptosis. ENT: Ears normal, nares patent, oropharynx clear without exudates, moist mucous membranes. NECK: Trachea midline, full range of motion, supple. LUNGS: Breath sounds equal, clear to auscultation bilaterally, no wheezes, no crackles, no accessory muscle use. HEART: Regular rate and rhythm, S1, S2 without murmur, rub or gallop. ABDOMEN: Soft, nontender, nondistended, normoactive bowel sounds, no guarding, no rebound, no hepatosplenomegaly, no masses. EXTREMITIES: 2+ pulses, warm, well-perfused, positive for AVF NEUROLOGICAL: Cranial nerves II through XII grossly intact. Normal speech, gait is stable PSYCH: Normal mood, normal affect. SKIN: Warm, dry, normal turgor, no rashes or lesions noted Laboratory Results - last 24 hr 12/11/17 12/12/17 12/12/17 21:26 06:14 06:45 WBC 10.7 H RBC 3.35 L Hgb 10.7 L Hct 32.3 L MCV 96.5 H MCH 32.0 MCHC 33.2 RDW 14.4 Plt Count 418 MPV 8.6 Neutrophils % 76.4 D Lymphocytes % 10.3 D Monocytes % 12.3 H Eosinophils % 0.5 Basophils % 0.5 Sodium Potassium Chloride Carbon Dioxide Anion Gap BUN Creatinine Creat Clearance w eGFR POC Glucometer 105 61 Random Glucose Calcium Phosphorus Magnesium Total Bilirubin AST ALT Alkaline Phosphatase Total Protein Albumin 12/12/17 12/12/17 12/12/17 06:45 06:45 11:40 WBC RBC Hgb Hct MCV MCH MCHC RDW Plt Count MPV Neutrophils % Lymphocytes % Monocytes % Eosinophils % Basophils % Sodium 138 Potassium 4.4 Chloride 98 Carbon Dioxide 31 Anion Gap 9 BUN 31 H D Creatinine 5.8 H D Creat Clearance w eGFR 9.43 POC Glucometer 255 Random Glucose 83 Calcium 7.8 L Phosphorus Cancelled 4.3 Magnesium 1.9 Total Bilirubin 0.5 D AST 13 L ALT 12 Alkaline Phosphatase 98 Total Protein 6.1 L Albumin 2.6 L 12/12/17 16:38 WBC RBC Hgb Hct MCV MCH MCHC RDW Plt Count MPV Neutrophils % Lymphocytes % Monocytes % Eosinophils % Basophils % Sodium Potassium Chloride Carbon Dioxide Anion Gap BUN Creatinine Creat Clearance w eGFR POC Glucometer 105 Random Glucose Calcium Phosphorus Magnesium Total Bilirubin AST ALT Alkaline Phosphatase Total Protein Albumin Active Medications Generic Name Dose Route Start Last Admin Trade Name Freq PRN Reason Stop Dose Admin Amlodipine Besylate 10 mg 12/09/17 10:00 12/12/17 11:42 Norvasc - PO 10 mg DAILY SEBASTIAN Administration Aspirin 325 mg 12/09/17 10:00 12/12/17 11:42 Asa - PO 325 mg DAILY SEBASTIAN Administration Atorvastatin Calcium 80 mg 12/08/17 22:00 12/11/17 21:30 Lipitor - PO 80 mg HS SEBASTIAN Administration Calcitriol 0.25 mcg 12/10/17 16:15 12/12/17 11:42 Rocaltrol - PO 0.25 mcg DAILY SEBASTIAN Administration Donepezil HCl 5 mg 12/11/17 10:00 12/12/17 11:42 Aricept - PO 5 mg DAILY SE[facility]STIAN Administration Furosemide 80 mg 12/09/17 10:00 12/12/17 11:42 Lasix - PO 80 mg DAILY SEBASTIAN Administration Insulin Aspart 1 vial 12/08/17 22:00 12/12/17 16:41 Novolog Vial Sliding Scale - SQ Not Given [facility] Protocol Insulin Detemir 7.5 units 12/10/17 19:10 12/11/17 21:31 Levemir Vial SQ 7.5 unit HS SE[facility]STIAN Administration Ranolazine 500 mg 12/08/17 22:00 12/12/17 11:42 Ranexa - PO 500 mg BID SEBASTIAN Administration CT head :Lacunar infarct in the body of Left cuadate nucleus is of indeterminate chronicity, no acute intracranial hemorrhage. mass effect or hydrocephalus, generalized age appropriate volume loss with moderately severe microvascular ischemic changes. ASSESSMENT/PLAN: Pt is an 82 y/o poor historian male with PMHx of HTN, alzheimers, T1DM, ESRD ( Tu, Lela, Sat, last dialysis laysis today),presents with AMS per , since . #Acute Altered mental status: improved. continue atorvastatin 80mg,and aspirin. CT of the head reported possible lacunar infarct in the body of left causdate nucleus. physical therapy and psychiatric social worker consult.carotid duplex report reviewed , appreciate neuro recommendations. #ESRD on HD (TTRSat); nephrology consult: Dr keller. will monitor the electrolytes. #DM: SS with coverage , continue levemir #HTN : continue home meds amlodipine # Hx of Angina continue Ranexa 500 mg PO BID, continue Aspirin and Lipitor Renal diet DVT PPx :scd b/l lower limb waiting for placement for am Visit type - Emergency Visit Emergency Visit: Yes ED Registration Date: 12/08/17 Care time: The patient presented to the Emergency Department on the above date and was hospitalized for further evaluation of their emergent condition. - New Patient This patient is new to me today: No - Critical Care Critical Care patient: No - Discharge Referral Referred to [facility] No
[2017-12-12] MEDS: INSULIN DETEMIR 100 UNITS/ML MDV SQ SCH (22:37)
[2017-12-12] MEDS: ATORVASTATIN CA 80 MG TABLET (FP) PO SCH (22:37)
[2017-12-13] MEDS: INSULIN SLIDING SCALE (NOVOLOG) 1 VIAL SQ SCH ×4 (06:05→22:21)
[2017-12-13] MEDS ORDERED: INSULIN (NOVOLOG) ASPART 100 UNITS/ML 10ML VIAL ONE (09:31)
[2017-12-13] MEDS: DONEPEZIL HCL 5 MG TABLET (FP) PO SCH (09:36)
[2017-12-13] MEDS: RANOLAZINE E.R. 500 MG TABLET (FP) PO SCH ×2 (09:36→22:19)
[2017-12-13] MEDS: ASPIRIN 325 MG TABLET PO SCH (09:36)
[2017-12-13] MEDS: FUROSEMIDE 40 MG TABLET (FP) PO SCH (09:37)
[2017-12-13] MEDS: amLODIPine BESYLATE 10 MG TABLET (FP) PO SCH (09:37)
[2017-12-13] MEDS: CALCITRIOL 0.25 MCG CAPSULE (FP) PO SCH (09:38)
--- NOTE | 2017-12-13 17:42 | PN ---
Progress Note (short form) - Note Progress Note: Patient is comfortable waiting for placement. No new complains. Vital Signs Temperature 98.1 F 12/13/17 13:17 Pulse Rate 79 12/13/17 13:17 Respiratory Rate 18 12/13/17 13:17 Blood Pressure 123/56 12/13/17 13:17 O2 Sat by Pulse Oximetry (%) 100 12/13/17 09:28 GENERAL: The patient is awake, alert, and fully oriented, in no acute distress. HEAD: Normal with no signs of trauma. EYES: PERRL, extraocular movements intact, sclera anicteric, conjunctiva clear. ENT: Ears normal, oropharynx clear without exudates, moist mucous membranes. NECK: Trachea midline, full range of motion, supple. LUNGS: Breath sounds equal, clear to auscultation bilaterally, no wheezes, no crackles, no accessory muscle use. HEART: Regular rate and rhythm, S1, S2 without murmur, rub or gallop. ABDOMEN: Soft, nontender, nondistended, normoactive bowel sounds, no guarding, no rebound, no hepatosplenomegaly, no masses. EXTREMITIES: 2+ pulses, warm, well-perfused, positive for AVF NEUROLOGICAL: Cranial nerves II through XII grossly intact. Normal speech, gait is stable PSYCH: Normal mood, normal affect. SKIN: Warm, dry, normal turgor, no rashes or lesions noted. CBCD WBC 10.7 K/mm3 (4.0-10.0) H 12/12/17 06:45 RBC 3.35 M/mm3 (4.00-5.60) L 12/12/17 06:45 Hgb 10.7 GM/dL (11.7-16.9) L 12/12/17 06:45 Hct 32.3 % (35.4-49) L 12/12/17 06:45 MCV 96.5 fl (80-96) H 12/12/17 06:45 MCHC 33.2 g/dl (32.0-35.9) 12/12/17 06:45 RDW 14.4 % (11.9-15.9) 12/12/17 06:45 Plt Count 418 K/MM3 (134-434) 12/12/17 06:45 MPV 8.6 fl (7.5-11.1) 12/12/17 06:45 CMP Sodium 138 mmol/L (136-145) 12/12/17 06:45 Potassium 4.4 mmol/L (3.5-5.1) 12/12/17 06:45 Chloride 98 mmol/L (98-107) 12/12/17 06:45 Carbon Dioxide 31 mmol/L (21-32) 12/12/17 06:45 Anion Gap 9 (8-16) 12/12/17 06:45 BUN 31 mg/dL (7-18) H D 12/12/17 06:45 Creatinine 5.8 mg/dL (0.7-1.3) H D 12/12/17 06:45 Creat Clearance w eGFR 9.43 (>60) 12/12/17 06:45 Random Glucose 83 mg/dL (74-106) 12/12/17 06:45 Calcium 7.8 mg/dL (8.5-10.1) L 12/12/17 06:45 Total Bilirubin 0.5 mg/dL (0.2-1.0) D 12/12/17 06:45 AST 13 U/L (15-37) L 12/12/17 06:45 ALT 12 U/L (12-78) 12/12/17 06:45 Alkaline Phosphatase 98 U/L (45-117) 12/12/17 06:45 Total Protein 6.1 g/dl (6.4-8.2) L 12/12/17 06:45 Albumin 2.6 g/dl (3.4-5.0) L 12/12/17 06:45 CARDIAC ENZYMES Creatine Kinase 63 IU/L (39-308) 12/08/17 17:50 Troponin I 0.02 ng/ml (0.00-0.05) D 12/09/17 06:40 Current Medications Generic Name Dose Route Start Last Admin Trade Name Freq PRN Reason Stop Dose Admin Amlodipine Besylate 10 mg 12/09/17 10:00 12/13/17 09:37 Norvasc - PO 10 mg DAILY SEBASTIAN Administration Aspirin 325 mg 12/09/17 10:00 12/13/17 09:36 Asa - PO 325 mg DAILY SEBASTIAN Administration Atorvastatin Calcium 80 mg 12/08/17 22:00 12/12/17 22:37 Lipitor - PO 80 mg HS SEBASTIAN Administration Calcitriol 0.25 mcg 12/10/17 16:15 12/13/17 09:38 Rocaltrol - PO 0.25 mcg DAILY SEBASTIAN Administration Donepezil HCl 5 mg 12/11/17 10:00 12/13/17 09:36 Aricept - PO 5 mg DAILY SEBASTIAN Administration Furosemide 80 mg 12/09/17 10:00 12/13/17 09:37 Lasix - PO 80 mg DAILY SEBASTIAN Administration Insulin Aspart 1 vial 12/08/17 22:00 12/13/17 16:39 Novolog Vial Sliding Scale - SQ Not Given ACHS [facility] Protocol Insulin Detemir 7.5 units 12/10/17 19:10 12/12/17 22:37 Levemir Vial SQ 7.5 unit HS SEBASTIAN Administration Ranolazine 500 mg 12/08/17 22:00 12/13/17 09:36 Ranexa - PO 500 mg BID SEBASTIAN Administration Home Medications Medication Instructions Recorded Oxycodone HCl/Acetaminophen 1 tab PO Q6H PRN #16 tablet MDD 4 10/28/17 [Percocet 5-325 mg Tablet] Insulin Glargine,Hum.rec.anlog 7.5 units SQ DAILY #30 syringe 11/30/17 [Lantus Solostar PEN -] Amlodipine Besylate [Norvasc -] 10 mg PO DAILY #30 tablet 12/10/17 Aspirin [ASA -] 325 mg PO DAILY #30 tablet 12/10/17 Furosemide [Lasix -] 80 mg PO DAILY #60 tablet 12/10/17 Ranolazine [Ranexa] 500 mg PO BID #60 tab.er.12h 12/10/17 Simvastatin [Zocor -] 20 mg PO HS #30 tablet 12/10/17 CT head :Lacunar infarct in the body of Left cuadate nucleus is of indeterminate chronicity, no acute intracranial hemorrhage. mass effect or hydrocephalus, generalized age appropriate volume loss with moderately severe microvascular ischemic changes. ASSESSMENT/PLAN: Pt is an 82 y/o poor historian male with PMHx of HTN, alzheimers, T1DM, ESRD ( , Lela, Sat, last dialysis laysis today),presents with AMS per , since 12/05. #Mental status improved. continue atorvastatin 80mg,and aspirin. CT of the head reported possible lacunar infarct in the body of left causdate nucleus. physical therapy and social work instructor consult. Carotid duplex report reviewed, appreciate neuro recommendations. #ESRD on HD (TTRSat); continue with #DM: SS with coverage , continue levemir #HTN : continue home meds amlodipine # Hx of Angina continue Ranexa 500 mg PO BID, continue Aspirin and Lipitor DVT PPx :scd b/l lower limb Renal diet waiting for placement , possible discharge in am. Visit type - Emergency Visit Emergency Visit: Yes ED Registration Date: 12/08/17 Care time: The patient presented to the Emergency Department on the above date and was hospitalized for further evaluation of their emergent condition. - New Patient This patient is new to me today: No - Critical Care Critical Care patient: No - Discharge Referral Referred to [facility] Med P.C.: No
[2017-12-13] MEDS: ATORVASTATIN CA 80 MG TABLET (FP) PO SCH (22:19)
[2017-12-13] MEDS: INSULIN DETEMIR 100 UNITS/ML MDV SQ SCH (22:21)
[2017-12-14] MEDS: INSULIN SLIDING SCALE (NOVOLOG) 1 VIAL SQ SCH ×4 (06:01→21:21)
[2017-12-14] MEDS ORDERED: PT OWN MED DRAWER 7, Y5N ONE (09:22)
[2017-12-14] MEDS: RANOLAZINE E.R. 500 MG TABLET (FP) PO SCH ×2 (09:34→21:14)
[2017-12-14] MEDS: amLODIPine BESYLATE 10 MG TABLET (FP) PO SCH (09:35)
[2017-12-14] MEDS: CALCITRIOL 0.25 MCG CAPSULE (FP) PO SCH (09:35)
[2017-12-14] MEDS: FUROSEMIDE 40 MG TABLET (FP) PO SCH (09:35)
[2017-12-14] MEDS: DONEPEZIL HCL 5 MG TABLET (FP) PO SCH (09:35)
[2017-12-14] MEDS: ASPIRIN 325 MG TABLET PO SCH (09:35)
[2017-12-14] MEDS ORDERED: INSULIN (NOVOLOG) ASPART 100 UNITS/ML 10ML VIAL ONE ×2 (12:19→21:20)
--- NOTE | 2017-12-14 14:00 | PN ---
<Jamaal Westfall - Last Filed: 12/14/17 13:50> Physical Exam: SUBJECTIVE: Patient was seen at bedside and offers no complaint. Per nurse, no acute events overnight. OBJECTIVE: Vital Signs Period Temp Pulse Resp BP Sys/Parekh Pulse Ox Last 24 Hr 97.7 F-98.8 F 65-76 18-20 135-148/52-84 99-99 GENERAL: The patient is awake, alert, and fully oriented, in no acute distress. HEAD: Normal with no signs of trauma. EYES: sclera anicteric, conjunctiva clear. ENT:moist mucous membranes. NECK: supple. LUNGS: Breath sounds equal, clear to auscultation bilaterally, no wheezes, no crackles, no accessory muscle use. HEART: Regular rate and rhythm, S1, S2 without murmur, rub or gallop. ABDOMEN: Soft, nontender, nondistended, normoactive bowel sounds, no guarding, no rebound, EXTREMITIES: 2+ pulses, warm, well-perfused, no edema. NEUROLOGICAL: Cranial nerves II through XII grossly intact. Normal speech, gait not observed. PSYCH: Normal mood, normal affect. SKIN: Warm, dry, Laboratory Results - last 24 hr 12/13/17 12/13/17 12/14/17 16:38 22:20 05:19 POC Glucometer 129 142 93 12/14/17 11:06 POC Glucometer 218 Active Medications Generic Name Dose Route Start Last Admin Trade Name Freq PRN Reason Stop Dose Admin Amlodipine Besylate 10 mg 12/09/17 10:00 12/14/17 09:35 Norvasc - PO 10 mg DAILY SEBASTIAN Administration Aspirin 325 mg 12/09/17 10:00 12/14/17 09:35 Asa - PO 325 mg DAILY SEBASTIAN Administration Atorvastatin Calcium 80 mg 12/08/17 22:00 12/13/17 22:19 Lipitor - PO 80 mg HS SEBASTIAN Administration Calcitriol 0.25 mcg 12/10/17 16:15 12/14/17 09:35 Rocaltrol - PO 0.25 mcg DAILY SEBASTIAN Administration Donepezil HCl 5 mg 12/11/17 10:00 12/14/17 09:35 Aricept - PO 5 mg DAILY SEBASTIAN Administration Furosemide 80 mg 12/09/17 10:00 12/14/17 09:35 Lasix - PO 80 mg DAILY SEBASTIAN Administration Insulin Aspart 1 vial 12/08/17 22:00 12/14/17 12:21 Novolog Vial Sliding Scale - SQ 4 units ACHS SEBASTIAN Administration Protocol Insulin Detemir 7.5 units 12/10/17 19:10 12/13/17 22:21 Levemir Vial SQ Not Given HS SEBASTIAN Ranolazine 500 mg 12/08/17 22:00 12/14/17 09:34 Ranexa - PO 500 mg BID SEBASTIAN Administration ASSESSMENT/PLAN: Pt is an 82 y/o male hx of htn, alzheimbers, DM1, ESRD , presents with AMS per , since 12/05. admitetd for further evaluation #Altered mental status - resolved #ESRD, chronic - On scheduled HD - Follows Dr. Arriaga as outpatient #DM - BGM and SSI #HTN - continue with amlodipine # H/O Angina - contineu ranexa 500 mg PO BID - continue with home dose of aspirin 325mg daily #FEN - not on fluids. Due for HD - renal diet #PPx - scd both legs # Dispo: - pending assesting living placement . Visit type - Emergency Visit Emergency Visit: No - New Patient This patient is new to me today: No - Critical Care Critical Care patient: No <Ethel Allen - Last Filed: 12/14/17 18:11> Physical Exam: patient seen and examined, no new event waiting for placement. Vital Signs Temperature 97.9 F 12/14/17 13:23 Pulse Rate 76 12/14/17 13:23 Respiratory Rate 20 12/14/17 13:23 Blood Pressure 148/61 12/14/17 13:23 O2 Sat by Pulse Oximetry (%) 99 12/14/17 09:00 CBCD WBC 10.7 K/mm3 (4.0-10.0) H 12/12/17 06:45 RBC 3.35 M/mm3 (4.00-5.60) L 12/12/17 06:45 Hgb 10.7 GM/dL (11.7-16.9) L 12/12/17 06:45 Hct 32.3 % (35.4-49) L 12/12/17 06:45 MCV 96.5 fl (80-96) H 12/12/17 06:45 MCHC 33.2 g/dl (32.0-35.9) 12/12/17 06:45 RDW 14.4 % (11.9-15.9) 12/12/17 06:45 Plt Count 418 K/MM3 (134-434) 12/12/17 06:45 MPV 8.6 fl (7.5-11.1) 12/12/17 06:45 CMP Sodium 138 mmol/L (136-145) 12/12/17 06:45 Potassium 4.4 mmol/L (3.5-5.1) 12/12/17 06:45 Chloride 98 mmol/L (98-107) 12/12/17 06:45 Carbon Dioxide 31 mmol/L (21-32) 12/12/17 06:45 Anion Gap 9 (8-16) 12/12/17 06:45 BUN 31 mg/dL (7-18) H D 12/12/17 06:45 Creatinine 5.8 mg/dL (0.7-1.3) H D 12/12/17 06:45 Creat Clearance w eGFR 9.43 (>60) 12/12/17 06:45 Random Glucose 83 mg/dL (74-106) 12/12/17 06:45 Calcium 7.8 mg/dL (8.5-10.1) L 12/12/17 06:45 Total Bilirubin 0.5 mg/dL (0.2-1.0) D 12/12/17 06:45 AST 13 U/L (15-37) L 12/12/17 06:45 ALT 12 U/L (12-78) 12/12/17 06:45 Alkaline Phosphatase 98 U/L (45-117) 12/12/17 06:45 Total Protein 6.1 g/dl (6.4-8.2) L 12/12/17 06:45 Albumin 2.6 g/dl (3.4-5.0) L 12/12/17 06:45 CARDIAC ENZYMES Creatine Kinase 63 IU/L (39-308) 12/08/17 17:50 Troponin I 0.02 ng/ml (0.00-0.05) D 12/09/17 06:40 Current Medications Generic Name Dose Route Start Last Admin Trade Name Freq PRN Reason Stop Dose Admin Amlodipine Besylate 10 mg 12/09/17 10:00 12/14/17 09:35 Norvasc - PO 10 mg DAILY SEBASTIAN Administration Aspirin 325 mg 12/09/17 10:00 12/14/17 09:35 Asa - PO 325 mg DAILY SEBASTIAN Administration Atorvastatin Calcium 80 mg 12/08/17 22:00 12/13/17 22:19 Lipitor - PO 80 mg HS SEBASTIAN Administration Calcitriol 0.25 mcg 12/10/17 16:15 12/14/17 09:35 Rocaltrol - PO 0.25 mcg DAILY SEBASTIAN Administration Donepezil HCl 5 mg 12/11/17 10:00 12/14/17 09:35 Aricept - PO 5 mg DAILY SEBASTIAN Administration Furosemide 80 mg 12/09/17 10:00 12/14/17 09:35 Lasix - PO 80 mg DAILY SEBASTIAN Administration Insulin Aspart 1 vial 12/08/17 22:00 12/14/17 16:29 Novolog Vial Sliding Scale - SQ Not Given ACHS [facility] Protocol Insulin Detemir 7.5 units 12/10/17 19:10 12/13/17 22:21 Levemir Vial SQ Not Given HS [facility] Ranolazine 500 mg 12/08/17 22:00 12/14/17 09:34 Ranexa - PO 500 mg BID SEBASTIAN Administration Home Medications Medication Instructions Recorded Oxycodone HCl/Acetaminophen 1 tab PO Q6H PRN #16 tablet MDD 4 10/28/17 [Percocet 5-325 mg Tablet] Insulin Glargine,Hum.rec.anlog 7.5 units SQ DAILY #30 syringe 11/30/17 [Lantus Solostar PEN -] Amlodipine Besylate [Norvasc -] 10 mg PO DAILY #30 tablet 12/10/17 Aspirin [ASA -] 325 mg PO DAILY #30 tablet 12/10/17 Furosemide [Lasix -] 80 mg PO DAILY #60 tablet 12/10/17 Ranolazine [Ranexa] 500 mg PO BID #60 tab.er.12h 12/10/17 Simvastatin [Zocor -] 20 mg PO HS #30 tablet 12/10/17
--- NOTE | 2017-12-14 16:12 | PN ---
Progress Note (short form) - Note Progress Note: Renal follow up for ESRD on HD Pt seen and examined at the bedside no acute complaints denies any sob, chest pain, abd pain, N/V Vital Signs Temperature 97.9 F 12/14/17 13:23 Pulse Rate 76 12/14/17 13:23 Respiratory Rate 20 12/14/17 13:23 Blood Pressure 148/61 12/14/17 13:23 O2 Sat by Pulse Oximetry (%) 99 12/14/17 09:00 Intake & Output 12/11/17 12/12/17 12/13/17 12/14/17 23:59 23:59 23:59 23:59 Intake Total 120 870 400 Balance 120 870 400 Weight 50.349 kg 50.519 kg 50.576 kg 50.009 kg NAD no LE edema CTA CBC, BMP 12/12/17 06:45 12/12/17 06:45 Current Medications Amlodipine Besylate (Norvasc -) 10 mg PO DAILY [facility] Last Admin: 12/14/17 09:35 Dose: 10 mg Aspirin (Asa -) 325 mg PO DAILY [facility] Last Admin: 12/14/17 09:35 Dose: 325 mg Atorvastatin Calcium (Lipitor -) 80 mg PO HS [facility] Last Admin: 12/13/17 22:19 Dose: 80 mg Calcitriol (Rocaltrol -) 0.25 mcg PO DAILY [facility] Last Admin: 12/14/17 09:35 Dose: 0.25 mcg Donepezil HCl (Aricept -) 5 mg PO DAILY [facility] Last Admin: 12/14/17 09:35 Dose: 5 mg Furosemide (Lasix -) 80 mg PO DAILY [facility] Last Admin: 12/14/17 09:35 Dose: 80 mg Insulin Aspart (Novolog Vial Sliding Scale -) 1 vial SQ [facility] PRN Reason: Protocol Last Admin: 12/14/17 12:21 Dose: 4 units Insulin Detemir (Levemir Vial) 7.5 units SQ [facility] Last Admin: 12/13/17 22:21 Dose: Not Given Ranolazine (Ranexa -) 500 mg PO BID [facility] Last Admin: 12/14/17 09:34 Dose: 500 mg 82 year old gentleman with PMhx of ESRD recently stated on dialysis, DM, Hypertension, Alzheimer who presented from home with confusion as per and found to have acute/subacute CVA. #Acute/Subacute CVA Neurology following on ASA, Lipitor #ESRD on HD no acute indication for dialysis today next dialysis is planned for tomorrow #Hypertension Continue Norvas discharge planning to rehab/NH as per primary Ciro Arriaga DO
[2017-12-14] MEDS: ATORVASTATIN CA 80 MG TABLET (FP) PO SCH (21:14)
[2017-12-14] MEDS: INSULIN DETEMIR 100 UNITS/ML MDV SQ SCH (21:21)
[2017-12-15] MEDS: INSULIN SLIDING SCALE (NOVOLOG) 1 VIAL SQ SCH ×2 (06:02→12:15)
[2017-12-15 08:42] LABS: HEMATOCRIT 30.6 % (35.4-49); MCH 31.1 pg (25.7-33.7); MCHC 32.6 g/dl (32.0-35.9); MEAN CELL VOLUME 95.6 fl (80-96); MEAN PLT VOLUME 8.8 fl (7.5-11.1); PLATELET COUNT 436 K/MM3 (134-434); RDW 14.6 % (11.9-15.9); WHITE BLOOD COUNT 11.2 K/mm3 (4.0-10.0)
[2017-12-15 09:26] LABS: ANION GAP 10 (8-16); BLOOD UREA NITROGEN 38 mg/dL (7-18); CALCIUM 8.2 mg/dL (8.5-10.1); CHLORIDE 97 mmol/L (98-107); CO2 27 mmol/L (21-32); GLUCOSE,RANDOM 88 mg/dL (74-106); SODIUM 134 mmol/L (136-145)
[2017-12-15 09:33] LABS: CREATININE 6.1 mg/dL (0.7-1.3); MAGNESIUM 2.1 mg/dL (1.8-2.4); PHOSPHOROUS 4.5 mg/dL (2.5-4.9)
[2017-12-15] MEDS: DONEPEZIL HCL 5 MG TABLET (FP) PO SCH (12:13)
[2017-12-15] MEDS: FUROSEMIDE 40 MG TABLET (FP) PO SCH (12:14)
[2017-12-15] MEDS: CALCITRIOL 0.25 MCG CAPSULE (FP) PO SCH (12:14)
[2017-12-15] MEDS: RANOLAZINE E.R. 500 MG TABLET (FP) PO SCH (12:14)
[2017-12-15] MEDS: amLODIPine BESYLATE 10 MG TABLET (FP) PO SCH (12:14)
[2017-12-15] MEDS: ASPIRIN 325 MG TABLET PO SCH (12:14)
--- NOTE | 2017-12-15 13:03 | DS ---
Physical Exam: SUBJECTIVE: Patient seen and examined at bedside. doing well. tolerating dialysis well today. will be discharged to [facility]. no acute events over night. OBJECTIVE: Vital Signs Period Temp Pulse Resp BP Sys/Parekh Pulse Ox Last 24 Hr 97.7 F-98.5 F 59-87 18-20 129-185/55-84 100 PHYSICAL EXAM GENERAL: The patient is awake, alert, oriented to place and people , missing month and year, in no acute distress. HEAD: Normal with no signs of trauma. EYES: sclera anicteric, conjunctiva clear. ENT:moist mucous membranes. NECK: supple. LUNGS: Breath sounds equal, clear to auscultation bilaterally, no wheezes, no crackles, no accessory muscle use. HEART: Regular rate and rhythm, S1, S2 without murmur, rub or gallop. ABDOMEN: Soft, nontender, nondistended, normoactive bowel sounds, no guarding, no rebound, EXTREMITIES: 2+ pulses, warm, well-perfused, no edema. NEUROLOGICAL: Cranial nerves II through XII grossly intact. Normal speech, gait not observed. PSYCH: Normal mood, normal affect. SKIN: Warm, dry, Current Medications Generic Name Dose Route Start Last Admin Trade Name Freq PRN Reason Stop Dose Admin Amlodipine Besylate 10 mg 12/09/17 10:00 12/15/17 12:14 Norvasc - PO 10 mg DAILY SEBASTIAN Administration Aspirin 325 mg 12/09/17 10:00 12/15/17 12:14 Asa - PO 325 mg DAILY SEBASTIAN Administration Atorvastatin Calcium 80 mg 12/08/17 22:00 12/14/17 21:14 Lipitor - PO 80 mg HS SEBASTIAN Administration Calcitriol 0.25 mcg 12/10/17 16:15 12/15/17 12:14 Rocaltrol - PO 0.25 mcg DAILY SEBASTIAN Administration Donepezil HCl 5 mg 12/11/17 10:00 12/15/17 12:13 Aricept - PO 5 mg DAILY SEBASTIAN Administration Furosemide 80 mg 12/09/17 10:00 12/15/17 12:14 Lasix - PO 80 mg DAILY SEBASTIAN Administration Insulin Aspart 1 vial 12/08/17 22:00 12/15/17 12:15 Novolog Vial Sliding Scale - SQ Not Given ACHS [facility] Protocol Insulin Detemir 7.5 units 12/10/17 19:10 12/14/17 21:21 Levemir Vial SQ Not Given HS SEBASTIAN Ranolazine 500 mg 12/08/17 22:00 12/15/17 12:14 Ranexa - PO 500 mg BID SEBASTIAN Administration LABS Laboratory Results - last 24 hr 12/14/17 12/14/17 12/15/17 16:20 21:14 05:07 WBC RBC Hgb Hct MCV MCH MCHC RDW Plt Count MPV Sodium Potassium Chloride Carbon Dioxide Anion Gap BUN Creatinine POC Glucometer 107 186 98 Random Glucose Calcium Phosphorus Magnesium 12/15/17 12/15/17 12/15/17 07:30 07:30 07:30 WBC 11.2 H RBC 3.20 L Hgb 10.0 L Hct 30.6 L MCV 95.6 MCH 31.1 MCHC 32.6 RDW 14.6 Plt Count 436 H MPV 8.8 Sodium 134 L Potassium 4.0 Chloride 97 L Carbon Dioxide 27 Anion Gap 10 BUN 38 H D Creatinine 6.1 H POC Glucometer Random Glucose 88 Calcium 8.2 L Phosphorus 4.5 Cancelled Magnesium 2.1 Cancelled 12/15/17 12:11 WBC RBC Hgb Hct MCV MCH MCHC RDW Plt Count MPV Sodium Potassium Chloride Carbon Dioxide Anion Gap BUN Creatinine POC Glucometer 150 Random Glucose Calcium Phosphorus Magnesium CBC, BMP 12/15/17 07:30 12/15/17 07:30 HOSPITAL COURSE: Date of Admission:12/08/17 Date of Discharge: 12/15/17 is a 82 y/o male with hx of hTN, Alzheimer, DM1, ESRD , presents with AMS per , since 12/05. was admitted to R/O Acute/Subacute CVA ,CT head was done notable for old lacunar infarct,treated with atorvastatin and Aspirin ,b12 593, TSH 1.63 , Neurology consulted recommend to start on Donepezil 5 mg po q am. For his ESRD he had dialysis aleks tolerated well with no complication he will resume his HD(t,t,s) as out patient.he has a history of chronic anemia likely 2/ 2 ESRD , he is no active bleeding , his H/H is stable he will follow up as out patient.for DM we hold home meds and started him on ISS , and Levemir 7.5 , he will resume his home meds upon discharged.his HTN is controlled with his home meds Amlodipine 10 mg po daily. he had Hypophosphatemia replenished and resolved. pt can resume all other home meds as same as prior to admission. pt is hemodynamically stable and ready to Dc home. Minutes to complete discharge: 40 <Huang Wasserman - Last Filed: 12/15/17 13:03> Physical Exam: Patient seen and examined with the resident. Patient is stable for discharge to rehab. <Ethel Allen - Last Filed: 12/15/17 14:42> Discharge Summary Reason For Visit: LACUNAR INFRACTION END STAGE RENAL DISEASE Current Active Problems DM (diabetes mellitus) (Chronic) Dementia (Chronic) ESRD (end stage renal disease) (Chronic) HTN (hypertension) (Chronic) Lacunar infarction (Chronic) - Home Medications Comprehensive Discharge Medication List: Ambulatory Orders Oxycodone HCl/Acetaminophen [Percocet 5-325 mg Tablet] 1 tab PO Q6H PRN #16 tablet MDD 4 10/28/17 Insulin Glargine,Hum.rec.anlog [Lantus Solostar PEN -] 7.5 units SQ DAILY #30 syringe 11/30/17 Amlodipine Besylate [Norvasc -] 10 mg PO DAILY #30 tablet 12/10/17 Aspirin [ASA -] 325 mg PO DAILY #30 tablet 12/10/17 Furosemide [Lasix -] 80 mg PO DAILY #60 tablet 12/10/17 Ranolazine [Ranexa] 500 mg PO BID #60 tab.er.12h 12/10/17 Simvastatin [Zocor -] 20 mg PO HS #30 tablet 12/10/17 Calcitriol [Calcitriol -] 0.25 mcg PO DAILY capsule 12/15/17 Donepezil HCl [Aricept -] 5 mg PO DAILY #30 tablet 12/15/17 Insulin (Levemir) [Levemir Vial] 7.5 units SQ HS #0 ml 12/15/17 <Huang Wasserman - Last Filed: 12/15/17 13:03> Current Active Problems DM (diabetes mellitus) (Chronic) Dementia (Chronic) ESRD (end stage renal disease) (Chronic) HTN (hypertension) (Chronic) Lacunar infarction (Chronic) - Home Medications Comprehensive Discharge Medication List: Ambulatory Orders Oxycodone HCl/Acetaminophen [Percocet 5-325 mg Tablet] 1 tab PO Q6H PRN #16 tablet MDD 4 10/28/17 Insulin Glargine,Hum.rec.anlog [Lantus Solostar PEN -] 7.5 units SQ DAILY #30 syringe 11/30/17 Amlodipine Besylate [Norvasc -] 10 mg PO DAILY #30 tablet 12/10/17 Aspirin [ASA -] 325 mg PO DAILY #30 tablet 12/10/17 Furosemide [Lasix -] 80 mg PO DAILY #60 tablet 12/10/17 Ranolazine [Ranexa] 500 mg PO BID #60 tab.er.12h 12/10/17 Simvastatin [Zocor -] 20 mg PO HS #30 tablet 12/10/17 Calcitriol [Calcitriol -] 0.25 mcg PO DAILY capsule 12/15/17 Donepezil HCl [Aricept -] 5 mg PO DAILY #30 tablet 12/15/17 Insulin (Levemir) [Levemir Vial] 7.5 units SQ HS #0 ml 12/15/17 <Ethel Allen - Last Filed: 12/15/17 14:42> Condition: Stable - Instructions Diet, Activity, Other Instructions: you were admitted to the hospital for change of mental status , work up come back negative you will be discharged home today Please resume all you home meds as prescribed prior to admission Neurologist started you on new meds Donepezil 5 mg daily to help improve your memory. Please follow up with your primary care physician within one week. Please follow up with neurologist within one month Please follow fall precaution Continue your dialysis as scheduled please keep your self hydrated If you develop any fever, chills or your symptoms worsen call 911 or come back to ED. Referrals: Juan Hall MD [Staff Physician] - 1 Month ON STAFF,NOT [Primary Care Provider] - 1 Week Disposition: RESIDENTIAL FACILITY This patient is new to me today: No Emergency Visit: Yes ED Registration Date: 12/08/17 Care time: The patient presented to the Emergency Department on the above date and was hospitalized for further evaluation of their emergent condition. Critical Care patient: No - Discharge Referral Referred to [facility] Med P.C.: No <Huang Wasserman - Last Filed: 12/15/17 13:03>
[2017-12-15 14:30] VITALS: BP 137/55; PULSE 77; TEMP 97.7
== END 2017-12-15 15:48 | DRG 56 ==
LOC: JER 15:46 → JERBED 20:05 → J4S 12-09 17:59
PROVIDERS: ADMIT Internal Medicine; ATTEND Internal Medicine
PROC: 5A1D70Z Performance of Urinary Filtration, Intermittent, Less than 6 Hours Per Day (ICD-10-PCS; principal; 2017-12-10)
PROC: 5A1D70Z Performance of Urinary Filtration, Intermittent, Less than 6 Hours Per Day (ICD-10-PCS; 2017-12-10)
PROC: 5A1D70Z Performance of Urinary Filtration, Intermittent, Less than 6 Hours Per Day (ICD-10-PCS; 2017-12-10)
DX: G30.9 Alzheimer's disease, unspecified (principal); N18.6 End stage renal disease; G93.41 Metabolic encephalopathy; I63.8 Other cerebral infarction; I12.0 Hypertensive chronic kidney disease with stage 5 chronic kidney disease or end stage renal disease; F02.80 Dementia in other diseases classified elsewhere, unspecified severity, without behavioral disturbance, psychotic disturbance, mood disturbance, and anxiety; E78.5 Hyperlipidemia, unspecified; E11.22 Type 2 diabetes mellitus with diabetic chronic kidney disease; D64.9 Anemia, unspecified; I25.10 Atherosclerotic heart disease of native coronary artery without angina pectoris; E83.39 Other disorders of phosphorus metabolism; Z79.4 Long term (current) use of insulin; Z99.2 Dependence on renal dialysis
CPT/HCPCS: 36415; 70450-TC; 71045-TC; 80048; 80053; 80061; 81003; 81015; 82550; 82565; 82607; 82962; 83721; 83735; 84100; 84443; 84484; 84520; 85025; 85027; 85610; 93005; 93010; 93306-TC; 93880-TC; 97116-GP; 97161-GP; 99283-25; J0885

== ENCOUNTER 2018-03-02 16:19 | Emergency (ER) | payer OTHER ==
[2018-03-02] MEDS ORDERED: HEMOQUE TEST 1 EACH EACH ONE ×3 (16:37→18:08)
[2018-03-02] MEDS ORDERED: DEXTROSE 50%-WATER 25 GM/50 ML DISP.SYRIN ONE (16:42)
[2018-03-02] MEDS ORDERED: DEXTROSE 50%-WATER - 25 GM/50 ML VIAL IVPUSH ONE (16:47)
--- NOTE | 2018-03-02 16:47 | PDOC ---
History of Present Illness - General Stated Complaint: HYPOTENSIVE Time Seen by Provider: 03/02/18 16:31 History Source: EMS Exam Limitations: Other (PT WAS HYPOGLYCEMIC AND CONBATIVE INITIALLY) - History of Present Illness Severity: moderate Past History - Past Medical History Allergies/Adverse Reactions: Allergies Allergy/AdvReac Type Severity Reaction Status Date / Time corn [Gravette] Allergy "ITCHY ALL Verified 03/02/18 17:18 OVER" No Known Drug Allergies Allergy Verified 03/02/18 17:18 Home Medications: Ambulatory Orders Oxycodone HCl/Acetaminophen [Percocet 5-325 mg Tablet] 1 tab PO Q6H PRN #16 tablet MDD 4 10/28/17 Insulin Glargine,Hum.rec.anlog [Lantus Solostar PEN -] 7.5 units SQ DAILY #30 syringe 11/30/17 Amlodipine Besylate [Norvasc -] 10 mg PO DAILY #30 tablet 12/10/17 Ranolazine [Ranexa] 500 mg PO BID #60 tab.er.12h 12/10/17 Simvastatin [Zocor -] 20 mg PO HS #30 tablet 12/10/17 Insulin (Levemir) [Levemir Vial] 7.5 units SQ HS #0 ml 12/15/17 Clonidine HCl 0.1 mg PO DAILY PRN 03/02/18 Furosemide [Lasix -] 40 mg PO DAILY 03/02/18 Losartan Potassium [Cozaar -] 100 mg PO DAILY 03/02/18 Anemia: Yes Asthma: No Cancer: No Cardiac Disorders: No CVA: No COPD: No CHF: No DVT: No Dementia: No Diabetes: Yes Dialysis: Yes (, , Thu) GI Disorders: Yes Disorders: No HTN: Yes Hypercholesterolemia: No Liver Disease: No Seizures: No Thyroid Disease: No - Surgical History Abdominal Surgery: Yes (HERNIA REPAIR) Appendectomy: No Cardiac Surgery: No Cholecystectomy: No Lung Surgery: No Neurologic Surgery: No Orthopedic Surgery: Yes - Immunization History Immunization Up to Date: Yes - Suicide/Smoking/Psychosocial Hx Smoking History: Former smoker Have you smoked in the past 12 months: No If you are a former smoker, when did you quit?: 25 YRS Hx Alcohol Use: No Drug/Substance Use Hx: No Substance Use Type: None Hx Substance Use Treatment: No Review of Systems - Review of Systems Able to Perform ROS?: No Is the patient limited French proficient: No *Physical Exam - Physical Exam General Appearance: Yes: Apparent Distress, Disheveled HEENT: positive: Normal Voice Neck: positive: Supple Respiratory/Chest: positive: Lungs Clear Cardiovascular: positive: Regular Rhythm, Regular Rate Gastrointestinal/Abdominal: positive: Soft Extremity: positive: Other (DIALYSIS ACCESS INTACT) Integumentary: positive: Warm Neurologic: positive: Confused (confused until he recieved his glucose) ED Treatment Course - LABORATORY CBC & Chemistry Diagram: 03/02/18 18:17 03/02/18 18:13 *DC/Admit/Observation/Transfer Diagnosis at time of Disposition: Hypoglycemia - Discharge Dispostion Disposition: HOME Condition at time of disposition: Stable - Referrals Referrals: Spencer Sahni MD [Non Staff, Medical] - - Patient Instructions Printed Discharge Instructions: DI for Hypoglycemia - Post Discharge Activity
[2018-03-02 17:18] VITALS: TEMP 97.3; BMI 71.2
--- NOTE | 2018-03-02 17:48 | PDOC ---
History of Present Illness - General Chief Complaint: Blood Sugar Problem Stated Complaint: hypoglycemia Time Seen by Provider: 03/02/18 16:31 - History of Present Illness Initial Comments: 03/02/18 17:43 CHIEF COMPLAINT: hypoglycemia HISTORY OF PRESENT ILLNESS: 83 yo F with hx of IDDM2, HTN, ESRD (on dialysis T/ TR/Sat), Alzheimers presents BIBEMS from dialysis center for agitation and combative behavior. On arrival patient's blood glucose was 41. No recent travel or sick contacts. PAST MEDICAL HISTORY: Denies past medical history FAMILY HISTORY: Denies SOCIAL HISTORY: Lives at home with . Denies tobacco, alcohol, illicit drug use. SURGICAL HISTORY: Denies ALLERGIES: corn REVIEW OF SYSTEMS General/Constitutional: Denies fever or chills. Denies weakness, weight change. HEENT: Denies change in vision. Denies ear pain or discharge. Denies sore throat. Cardiovascular: Denies chest pain or shortness of breath. Respiratory: Denies cough, wheezing, or hemoptysis. Gastrointestinal: Denies nausea, vomiting, diarrhea or constipation. Denies rectal bleeding. Genitourinary: Denies dysuria, frequency, or change in urination. Musculoskeletal: Denies joint or muscle swelling or pain. Denies neck or back pain. Skin and breasts: Denies rash or easy bruising. Neurologic: Combative behavior and AMS per dialysis center. Psychiatric: Denies depression or anxiety. PHYSICAL EXAM General Appearance: Well-appearing, appropriately dressed. No apparent distress. HEENT: EOMI, PERRLA, normal ENT inspection, normal voice, TMs normal, pharynx normal. No conjunctival pallor. No photophobia, scleral icterus. Neck: Supple. Trachea midline. No tenderness, rigidity, carotid bruit, stridor , lymphadenopathy, or thyromegaly. Respiratory/Chest: Lungs CTAB. No shortness of breath, chest tenderness, respiratory distress, accessory muscle use. No crackles, rales, rhonchi, stridor , wheezing, dullness Cardiovascular: RRR. S1, S2. No JVD, murmur, bradycardia, tachycardia. Vascular Pulses: Dorsalis-Pedis (R): 2+, Dorsalis-Pedis (L): 2+ Gastrointestinal/Abdominal: Normal bowel sounds. Abdomen soft, non-distended. No tenderness or rebound tenderness. No organomegaly, pulsatile mass, guarding , hernia, hepatomegaly, splenomegaly. Lymphatic: No adenopathy, tenderness. Musculoskeletal/Extremities: Normal inspection. FROM of all extremities, normal capillary refill. Pelvis Stable. No CVA tenderness. No tenderness to extremities, pedal edema, swelling, erythema or deformity. Integumentary: Appropriate color, dry, warm. No cyanosis, erythema, jaundice or rash Neurologic: vibrating screen operator II-XII intact. Fully oriented, alert. Appropriate mood/affect. Motor strength 5/5. No appreciable EOM palsy, facial droop or sensory deficit. 03/02/18 17:48 Past History - Past Medical History Allergies/Adverse Reactions: Allergies Allergy/AdvReac Type Severity Reaction Status Date / Time corn [[place]] Allergy "ITCHY ALL Verified 03/02/18 17:18 OVER" No Known Drug Allergies Allergy Verified 03/02/18 17:18 Home Medications: Ambulatory Orders Oxycodone HCl/Acetaminophen [Percocet 5-325 mg Tablet] 1 tab PO Q6H PRN #16 tablet MDD 4 10/28/17 Insulin Glargine,Hum.rec.anlog [Lantus Solostar PEN -] 7.5 units SQ DAILY #30 syringe 11/30/17 Amlodipine Besylate [Norvasc -] 10 mg PO DAILY #30 tablet 12/10/17 Ranolazine [Ranexa] 500 mg PO BID #60 tab.er.12h 12/10/17 Simvastatin [Zocor -] 20 mg PO HS #30 tablet 12/10/17 Insulin (Levemir) [Levemir Vial] 7.5 units SQ HS #0 ml 12/15/17 Clonidine HCl 0.1 mg PO DAILY PRN 03/02/18 Furosemide [Lasix -] 40 mg PO DAILY 03/02/18 Losartan Potassium [Cozaar -] 100 mg PO DAILY 03/02/18 Anemia: Yes Asthma: No Cancer: No Cardiac Disorders: No CVA: No COPD: No CHF: No DVT: No Dementia: No Diabetes: Yes Dialysis: Yes (, , Thu) GI Disorders: Yes Disorders: No HTN: Yes Hypercholesterolemia: No Liver Disease: No Seizures: No Thyroid Disease: No - Surgical History Abdominal Surgery: Yes (HERNIA REPAIR) Appendectomy: No Cardiac Surgery: No Cholecystectomy: No Lung Surgery: No Neurologic Surgery: No Orthopedic Surgery: Yes - Immunization History Immunization Up to Date: Yes - Suicide/Smoking/Psychosocial Hx Smoking History: Former smoker Have you smoked in the past 12 months: No If you are a former smoker, when did you quit?: 25 YRS Information on smoking cessation initiated: No Hx Alcohol Use: No Drug/Substance Use Hx: No Substance Use Type: None Hx Substance Use Treatment: No *Physical Exam - Vital Signs Last Vital Signs Temp Pulse Resp BP Pulse Ox 97.3 F L 83 16 178/58 95 03/02/18 16:19 03/02/18 16:19 03/02/18 16:19 03/02/18 16:19 03/02/18 16:19 ED Treatment Course - LABORATORY CBC & Chemistry Diagram: 03/02/18 18:17 03/02/18 18:13 - ADDITIONAL ORDERS Additional order review: Laboratory Results 03/02/18 16:41 POC Glucometer < 50 03/02/18 16:41 POC Glucometer < 50 - RADIOLOGY Radiology Studies Ordered: Category Date Time Status CHEST X-RAY PORTABLE* [RAD] Stat Radiology 03/02/18 16:55 Ordered - Medications Given in the ED: ED Medications Discontinued Medications Generic Name Dose Route Start Last Admin Trade Name Freq PRN Reason Stop Dose Admin Dextrose 25 gm 03/02/18 16:47 03/02/18 16:54 D50w (Vial) - IVPUSH 03/02/18 16:48 25 gm NOW ONE Administration Medical Decision Making - Medical Decision Making 03/02/18 17:48 83 yo F with hx of IDDM2, HTN, ESRD (on dialysis T/TR/Sat), Alzheimers presents BIBEMS from dialysis center for agitation and combative behavior. -d50 given , patient drank orange juice and ate a sandwich and is now alert and oriented, stating that he takes 15 units of insulin Patient's glucose is now 129. *DC/Admit/Observation/Transfer Diagnosis at time of Disposition: Hypoglycemia - Discharge Dispostion Disposition: HOME Condition at time of disposition: Stable Admit: No - Referrals Referrals: Spencer Sahni MD [Non Staff, Medical] - - Patient Instructions Printed Discharge Instructions: DI for Hypoglycemia - Post Discharge Activity
[2018-03-02 18:25] LABS: BASO % 0.3 % (0-2.0); EOS % 0.3 % (0-4.5); HEMATOCRIT 37.1 % (35.4-49); HEMOGLOBIN 12.6 GM/dL (11.7-16.9); LYMPH % 5.6 % (8-40); MCH 33.1 pg (25.7-33.7); MCHC 34.1 g/dl (32.0-35.9); MEAN CELL VOLUME 96.9 fl (80-96); MEAN PLT VOLUME 7.3 fl (7.5-11.1); NEUT % 83.8 % (42.8-82.8); PLATELET COUNT 302 K/MM3 (134-434); RBC 3.83 M/mm3 (4.00-5.60); RDW 15.1 % (11.9-15.9); WHITE BLOOD COUNT 10.9 K/mm3 (4.0-10.0)
[2018-03-02 18:37] LABS: INR 0.96 (0.82-1.09); PROTHROMBIN TIME (PATIENT) 10.9 SEC (9.7-13.0)
[2018-03-02 18:48] LABS: ALBUMIN 3.8 g/dl (3.4-5.0); ANION GAP 4 (8-16); BILIRUBIN,TOTAL 0.6 mg/dL (0.2-1.0); BLOOD UREA NITROGEN 11 mg/dL (7-18); CALCIUM 8.2 mg/dL (8.5-10.1); CHLORIDE 103 mmol/L (98-107); CO2 29 mmol/L (21-32); GLUCOSE,RANDOM 129 mg/dL (74-106); POTASSIUM 3.6 mmol/L (3.5-5.1); SGOT/AST 17 U/L (15-37); SGPT/ALT 11 U/L (12-78); SODIUM 136 mmol/L (136-145); TOT PROT 7.7 g/dl (6.4-8.2)
[2018-03-02 18:49] LABS: ALK PHOS 67 U/L (45-117)
[2018-03-02 19:36] VITALS: BP 139/43; PULSE 72
--- NOTE | 2018-03-03 12:07 | EKG ---
Test Reason : Blood Pressure : / mmHG Vent. Rate : 067 BPM Atrial Rate : 067 BPM P-R Int : 170 ms QRS Dur : 136 ms QT Int : 466 ms P-R-T Axes : 067 -44 058 degrees QTc Int : 492 ms NORMAL SINUS RHYTHM LEFT AXIS DEVIATION NON-SPECIFIC INTRA-VENTRICULAR CONDUCTION BLOCK CANNOT RULE OUT SEPTAL INFARCT (CITED ON OR BEFORE 08-DEC-2017) ABNORMAL ECG WHEN COMPARED WITH ECG OF 08-DEC-2017 16:48, QRS DURATION HAS INCREASED QUESTIONABLE CHANGE IN INITIAL FORCES OF ANTERIOR LEADS Confirmed by DAREN VELIZ, RICARDA ([id number]) on 03/03/2018 12:07:03 PM Referred By: Confirmed By:RICARDA MERCEDES MD
== END 2018-03-02 19:40 | disposition home or self-care (01) ==
LOC: JER 16:19
PROC: 3E0337Z Introduction of Electrolytic and Water Balance Substance into Peripheral Vein, Percutaneous Approach (ICD-10-PCS; principal; 2018-03-02)
DX: E11.649 Type 2 diabetes mellitus with hypoglycemia without coma (principal); Z79.4 Long term (current) use of insulin; I12.0 Hypertensive chronic kidney disease with stage 5 chronic kidney disease or end stage renal disease; E11.22 Type 2 diabetes mellitus with diabetic chronic kidney disease; N18.6 End stage renal disease; N17.8 Other acute kidney failure; Z99.2 Dependence on renal dialysis; G30.8 Other Alzheimer's disease; F02.81 Dementia in other diseases classified elsewhere, unspecified severity, with behavioral disturbance
CPT/HCPCS: 36415; 71045-TC-FY; 80053; 82962; 85025; 85610; 93005; 93010; 96374; 99282-25

== ENCOUNTER 2019-10-04 14:30 | Emergency (ER) | payer OTHER ==
[2019-10-04 14:50] VITALS: BMI 22.3
--- NOTE | 2019-10-04 15:29 | PDOC ---
History of Present Illness - History of Present Illness Initial Comments: 10/04/19 16:24 The patient is an 84 year old male with a history of HTN, HLD, DM, ESRD on dialysis TT who presents for evaluation of tremors. The patient reports that he was completing his dialysis today when he experienced some lightheadedness associated with left arm "shaking" and noted that his blood sugar was "high" prompting his presentation to the ED for further evaluation. He reports that his symptoms have since resolved and he is otherwise asymptomatic. He denies similar symptoms in the past and otherwise denies fevers, chills, SOB, chest pain, nausea, vomiting, abdominal pain, numbness, tingling, weakness, or changes with urination or bowel movements. <Jonh Finley - Last Filed: 10/04/19 18:13> <Kenzie Islas - Last Filed: 10/04/19 19:07> - General Chief Complaint: Tremors Stated Complaint: TREMORS Time Seen by Provider: 10/04/19 15:29 Past History - Past Medical History Anemia: Yes Asthma: No Cancer: No Cardiac Disorders: No CVA: No COPD: No CHF: No DVT: No Dementia: No Diabetes: Yes Dialysis: Yes (, , Thu) GI Disorders: Yes Disorders: No HTN: Yes Hypercholesterolemia: No Liver Disease: No Seizures: No Thyroid Disease: No - Surgical History Abdominal Surgery: Yes (HERNIA REPAIR) Appendectomy: No Cardiac Surgery: No Cholecystectomy: No Lung Surgery: No Neurologic Surgery: No Orthopedic Surgery: Yes - Immunization History Immunization Up to Date: Yes - Psycho Social/Smoking Cessation Hx Smoking History: Unknown if ever smoked Have you smoked in the past 12 months: No If you are a former smoker, when did you quit?: 25 YRS Hx Alcohol Use: No Drug/Substance Use Hx: No Substance Use Type: None Hx Substance Use Treatment: No <Jonh Finley - Last Filed: 10/04/19 18:13> <Kenzie Islas - Last Filed: 10/04/19 19:07> - Past Medical History Allergies/Adverse Reactions: Allergies Allergy/AdvReac Type Severity Reaction Status Date / Time corn [[place]] Allergy "ITCHY ALL Verified 10/04/19 14:48 OVER" No Known Drug Allergies Allergy Verified 10/04/19 14:48 Home Medications: Ambulatory Orders Insulin Glargine,Hum.rec.anlog [Lantus Solostar PEN -] 7.5 units SQ DAILY #30 syringe 11/30/17 Ranolazine [Ranexa] 500 mg PO BID #60 tab.er.12h 12/10/17 Simvastatin [Zocor -] 20 mg PO HS #30 tablet 12/10/17 Insulin (Levemir) [Levemir Vial] 7.5 units SQ HS #0 ml 12/15/17 Losartan Potassium [Cozaar -] 100 mg PO DAILY 03/02/18 Aspirin [ASA -] 81 mg PO DAILY 05/09/18 Donepezil HCl [Aricept -] 5 mg PO HS 05/10/18 Sevelamer HCl [Renagel] 800 mg PO AC 05/10/18 Review of Systems - Review of Systems Comments:: 10/04/19 16:26 Constitutional: No fevers, chills, fatigue, malaise HEENT: No Rhinorrhea, nasal congestion, visual changes Cardiovascular: Lightheadedness. No chest pain, syncope, palpitations, Respiratory: No Cough, SOB, Hemoptysis, Gastrointestinal: No Abdominal pain, Nausea, Vomiting, Constipation, Diarrhea, Melena Genitourinary: No Dysuria, Frequency, Urgency, Hesitancy, Hematuria, Flank pain Musculoskeletal: No Myalgia, arthralgia Skin: No rashes, itching, bruising, pallor Neurologic: Left arm shaking. No Headache, Dizziness, Numbness, Weakness, or Tingling Psychiatric: No Hallucinations. No SI or HI <Jonh Finley - Last Filed: 10/04/19 18:13> *Physical Exam - Vital Signs Last Vital Signs Temp Pulse Resp BP Pulse Ox 98.5 F 64 18 137/59 L 99 10/04/19 14:30 10/04/19 14:30 10/04/19 14:30 10/04/19 14:30 10/04/19 14:30 - Physical Exam Comments: 10/04/19 16:28 General Appearance: Nourished. No Apparent Distress HEENT: EOMI, ROLANDO. No Pharyngeal Erythema, Tonsillar Exudate, Tonsillar Erythema Neck: No Cervical Lymphadenopathy Respiratory/Chest: Lungs Clear, Normal Breath Sounds. No Crackles, Rales, Rhonchi, Wheezing Cardiovascular: Regular Rhythm, Regular Rate. No Murmur, Gallops, Rubs Gastrointestinal/Abdominal: Normal Bowel Sounds, Soft. No Guarding, Rebound, Tenderness Musculoskeletal: No CVA Tenderness Extremity: Normal Capillary Refill Integumentary: Normal Color, Dry, Warm Neurologic: environmental services aide II-XII NML intact, Fully Oriented, Alert, Normal Mood/Affect, Normal Response, Motor Strength 5/5. <Jonh Finley - Last Filed: 10/04/19 18:13> - Vital Signs Last Vital Signs Temp Pulse Resp BP Pulse Ox 98.5 F 64 18 137/59 L 99 10/04/19 14:30 10/04/19 14:30 10/04/19 14:30 10/04/19 14:30 10/04/19 14:30 <Kenzie Islas - Last Filed: 10/04/19 19:07> ED Treatment Course - LABORATORY CBC & Chemistry Diagram: 10/04/19 18:15 10/04/19 18:15 - ADDITIONAL ORDERS Additional order review: Laboratory Results 10/04/19 18:15 Sodium 132 L Potassium 4.6 Chloride 99 Carbon Dioxide 25 Anion Gap 8 BUN 38.1 H Creatinine 5.2 H Est GFR (CKD-EPI)AfAm 10.94 Est GFR (CKD-EPI)NonAf 9.44 Random Glucose 139 H Calcium 7.9 L Total Bilirubin 0.7 AST 13 L ALT 17 Alkaline Phosphatase 121 H Creatine Kinase 66 Troponin I < 0.02 Total Protein 7.5 Albumin 3.6 10/04/19 18:15 RBC 3.34 L MCV 102.4 H MCHC 32.9 RDW 15.8 D MPV 9.3 Neutrophils % 60.1 Lymphocytes % 17.6 Monocytes % 18.2 H Eosinophils % 3.0 Basophils % 1.1 <Kenzie Islas - Last Filed: 10/04/19 19:07> Medical Decision Making - Medical Decision Making 10/04/19 16:28 The patient is an 84 year old male with a history of HTN, HLD, DM, ESRD on dialysis TThS who presents for evaluation of tremors. The patient appears clinically well on exam. Given the patient's history and physical exam, we will obtain a cbc, cmp, troponin, ekg to evaluate further. We will continue to monitor and reassess while here in the ED. <Jonh Finley Last Filed: 10/04/19 18:13> Discharge - Discharge Information Problems reviewed: Yes <Jonh Finley - Last Filed: 10/04/19 18:13> - Discharge Information Problems reviewed: Yes - Admission No <Kenzie Islas - Last Filed: 10/04/19 19:07> - Discharge Information Clinical Impression/Diagnosis: Lightheadedness Condition: Stable Disposition: HOME - Follow up/Referral Referrals: Kinjal Chavarria MD [Primary Care Provider] - - Patient Discharge Instructions Additional Instructions: 1) Please follow-up with your primary care doctor in the next 2-3 days. Please call tomorrow to schedule a follow up appointment. If you cannot follow up with your doctor within 1 week please return to the Emergency Department for any urgent issues. 2) Your laboratory / imaging results were normal here in the ER. 3) If you have any worsening of symptoms or any other concerns, please return to the ER immediately. Return if worsening symptoms including fevers, headache, vomiting, visual or hearing disturbances, abdominal pain, chest pain, shortness of breath, syncope, dehydration, inability to take things by mouth/vomiting, altered mental status, or worsening concerning symptoms. 4) Please continue taking your home medications as directed. Side effects may include upset stomach, abdominal pain, vomiting, or diarrhea. Do not drink alcohol with your medications. - Post Discharge Activity
--- NOTE | 2019-10-04 16:31 | PDOC ---
Attending Attestation - Resident Resident Name: Jonh Finley - ED Attending Attestation I have performed the following: I have examined & evaluated the patient, The case was reviewed & discussed with the resident, I agree w/resident's findings & plan - HPI HPI: 10/04/19 16:26 84-year-old male with multiple medical problems including end-stage renal disease on dialysis presents sent from dialysis center after episode of left arm tremors following dialysis. Patient had complete scheduled dialysis through left arm fistula, after dialysis had episode of left arm shaking and lightheadedness in the setting of elevated blood pressure and elevated glucose. Symptoms lasted for several minutes then resolved, resents here without any complaints whatsoever. No history of similar events, denies any pain or weakness or paresthesias. - Physicial Exam PE: 10/04/19 16:28 Vitals as noted, afebrile Alert lying in stretcher, no acute distress, conversant Speech clear, pupils equal round reactive to light neck supple, no audible carotid bruit heart regular to auscultation, lungs clear L arm fistula with pulse/thrill no active tremor, 5/5 motor x4. fnf normal - Medical Decision Making 10/04/19 16:31 84-year-old male with episode of left arm tremor and lightheadedness in the setting of elevated blood pressure and glucose after full dialysis session today , now resolved without any complaints, normal exam, normal vitals. 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 Heart Score/ECG Review #1 ECG reviewed & interpreted by me at: 17:06 General ECG Interpretation: Sinus Rhythm, Normal Rate (66), Normal Intervals ( qtc 463, nonspecific intraventricular conduction delay with qrs 122), No acute ischemic changes (biphasic T wave V5V6)
[2019-10-04 18:30] LABS: BASO % 1.1 % (0-2.0); HEMATOCRIT 34.2 % (35.4-49); HEMOGLOBIN 11.2 GM/dL (11.7-16.9); LYMPH % 17.6 % (8-40); MCH 33.7 pg (25.7-33.7); MCHC 32.9 g/dl (32.0-35.9); MEAN CELL VOLUME 102.4 fl (80-96); MEAN PLT VOLUME 9.3 fl (7.5-11.1); MONO % 18.2 % (3.8-10.2); NEUT % 60.1 % (42.8-82.8); PLATELET COUNT 289 K/MM3 (134-434); RBC 3.34 M/mm3 (4.00-5.60); RDW 15.8 % (11.9-15.9); WHITE BLOOD COUNT 7.4 K/mm3 (4.0-10.0)
[2019-10-04 19:05] LABS: ALBUMIN 3.6 g/dl (3.4-5.0); ALK PHOS 121 U/L (45-117); ANION GAP 8 MMOL/L (8-16); BILIRUBIN,TOTAL 0.7 mg/dL (0.2-1); BLOOD UREA NITROGEN 38.1 mg/dL (7-18); CALCIUM 7.9 mg/dL (8.5-10.1); CHLORIDE 99 mmol/L (98-107); CO2 25 mmol/L (21-32); CREATININE 5.2 mg/dL (0.55-1.3); GLUCOSE,RANDOM 139 mg/dL (74-106); POTASSIUM 4.6 mmol/L (3.5-5.1); SGOT/AST 13 U/L (15-37); SGPT/ALT 17 U/L (13-61); SODIUM 132 mmol/L (136-145); TOT PROT 7.5 g/dl (6.4-8.2)
[2019-10-04 19:43] VITALS: BP 136/63; PULSE 66; TEMP 98.4
--- NOTE | 2019-10-05 10:47 | EKG ---
Test Reason : Blood Pressure : / mmHG Vent. Rate : 066 BPM Atrial Rate : 066 BPM P-R Int : 166 ms QRS Dur : 122 ms QT Int : 442 ms P-R-T Axes : 067 -46 015 degrees QTc Int : 463 ms POOR DATA QUALITY, INTERPRETATION MAY BE ADVERSELY AFFECTED NORMAL SINUS RHYTHM LEFT AXIS DEVIATION NON-SPECIFIC INTRA-VENTRICULAR CONDUCTION DELAY ABNORMAL ECG WHEN COMPARED WITH ECG OF 08-MAY-2018 15:40, NONSPECIFIC T WAVE ABNORMALITY NOW EVIDENT IN INFERIOR LEADS T WAVE INVERSION MORE EVIDENT IN LATERAL LEADS Confirmed by DAREN VELIZ, RICARDA ([id number]) on 10/05/2019 10:47:32 AM Referred By: Confirmed By:RICARDA MERCEDES MD
== END 2019-10-04 19:31 | disposition home or self-care (01) ==
LOC: JER 14:30
DX: R42 Dizziness and giddiness (principal); I12.0 Hypertensive chronic kidney disease with stage 5 chronic kidney disease or end stage renal disease; E11.22 Type 2 diabetes mellitus with diabetic chronic kidney disease; E11.65 Type 2 diabetes mellitus with hyperglycemia; N18.6 End stage renal disease; N17.8 Other acute kidney failure; Z99.2 Dependence on renal dialysis; Z79.4 Long term (current) use of insulin; E78.5 Hyperlipidemia, unspecified
CPT/HCPCS: 36415; 70450-TC; 80053; 82550; 84484; 85025; 93005; 93010; 99283-25

== ENCOUNTER 2019-12-27 09:26 | Emergency (ER) | payer OTHER ==
[2019-12-27] MEDS ORDERED: LORazepam 2 MG/ML SDV VIAL ONE (09:34)
--- NOTE | 2019-12-27 09:39 | PDOC ---
Attending Attestation - Resident Resident Name: LaceyGeri - ED Attending Attestation I have performed the following: I have examined & evaluated the patient, The case was reviewed & discussed with the resident, I agree w/resident's findings & plan, Exceptions are as noted - HPI HPI: 84 yo M history DM, HL, HTN, dementia, ESRD on HD MWF (last dialysis Thursday, missed yesterday due to holiday, was scheduled for dialysis today) presenting with AMS. Sent [place] for [place], decreased movement of his left side. On arrival in ED as he was being placed into a room, he developed a generalized tonic- clonic seizure. Pt unable to give any history. - Physicial Exam PE: GENERAL: Initially seizing, then postictal, in no acute distress HEAD: No signs of trauma EYES: Pupils small but reactive, EOMI, sclera anicteric, conjunctiva clear ENT: Auricles normal inspection, hearing grossly normal, nares patent, oropharynx clear without exudates. Moist mucosa NECK: Normal ROM, supple, no lymphadenopathy, JVD, or masses LUNGS: Breath sounds equal, clear to auscultation bilaterally. No wheezes, and no crackles HEART: Regular rate and rhythm, normal S1 and S2, no murmurs, rubs or gallops ABDOMEN: Soft, nontender, normoactive bowel sounds. No guarding, no rebound. No masses EXTREMITIES: Normal range of motion, no edema. No clubbing or cyanosis. No cords, erythema, or tenderness NEUROLOGICAL: Limited by postictal state. Decreased movement of the L side noted. SKIN: Warm, dry, normal turgor, no rashes. +Abrasions to the L arm, no active bleeding - Medical Decision Making Pt with AMS, seizure on arrival to ED, no prior history of seizure. Stroke code called, as he had decreased movement of the L side. CTH showed SDH, acute on chronic. Patient was intubated to secure airway. Transfer to [facility] for higher level of care.
[2019-12-27] MEDS ORDERED: PROPOFOL 1,000,000 MCG/100 ML VIAL ONE (10:16)
[2019-12-27] MEDS ORDERED: ETOMIDATE 40 MG/20 ML VIAL IVPUSH ONE (10:19)
[2019-12-27] MEDS ORDERED: ROCURONIUM BROMIDE 50 MG/5 ML VIAL IV ONE (10:19)
[2019-12-27 10:24] LABS: BASO % 0.6 % (0-2.0); EOS % 0.3 % (0-4.5); HEMATOCRIT 25.4 % (35.4-49); HEMOGLOBIN 8.3 GM/dL (11.7-16.9); LYMPH % 18.3 % (8-40); MCH 33.4 pg (25.7-33.7); MCHC 32.8 g/dl (32.0-35.9); MEAN PLT VOLUME 9.2 fl (7.5-11.1); MONO % 13.2 % (3.8-10.2); NEUT % 67.6 % (42.8-82.8); PLATELET COUNT 497 K/MM3 (134-434); RBC 2.49 M/mm3 (4.00-5.60); RDW 14.2 % (11.9-15.9); WHITE BLOOD COUNT 18.5 K/mm3 (4.0-10.0)
--- NOTE | 2019-12-27 10:29 | PDOC ---
History of Present Illness <ZeustejaGeri - Last Filed: 12/27/19 11:21> <Jonh Finley - Last Filed: 12/27/19 11:45> - General Chief Complaint: Altered Mental Status Stated Complaint: ALT MENTAL STATUS Time Seen by Provider: 12/27/19 09:38 tPA Exclusion Checklist 0-3hr - Time Elapsed Date last known well: 12/27/19 Time last known well: 08:30 Elaspsed time: Day(s) and 2 Hour(s) and 51 Minutes - Thrombolytic Therapy Candidate Is the patient eligible for Thrombolytic Therapy?: No - Relative Exclusion Criteria 0-3h Seizure at onset with postictal residual neuro impairments: Yes - Ineligibility reason(s) Reasons No tPA given: See reason(s) noted above <Geri Rahman - Last Filed: 12/27/19 11:21> NIH Stroke Scale - Last Known Well Date/Time & Onset Date Last Known Well: 12/27/19 Time Last Known Well: 08:30 - Initial Evaluation Level of consciousness: Not alert, requires repeat stimulation to attend Ask patient the month and their age: Both incorrect Ask patient to open & close eyes; make fist and let go: Both incorrect Best gaze (horizontal eye movement): Normal Visual field testing: No visual field loss Facial paresis (Show teeth/raise eyebrows/close eyes tight): Normal symmetrical movement Motor Function: Left Arm: No effort against gravity Motor Function: Right Arm: Some effort against gravity Motor Function: Left Leg: No effort against gravity Motor Function: Right Leg: No effort against gravity Limb Ataxia: Untestable (Joint fused or limb amputated), explain: (Does not follow commands) Sensory(Use pinprick test arms,legs,trunk,face/side to side): Severe to total sensory loss Best language (Describe picture, name items, read sentences): Severe aphasia Dysarthria (read several words): Near unintelligible or unable to speak Extinction and Inattention: Inattention or extinction bilaterally to one of the sensory modalities - Total Score NIH Stroke Scale Score: 24 <ZeustejaGeri - Last Filed: 12/27/19 11:21> Past History - Past Medical History Anemia: Yes Asthma: No Cancer: No Cardiac Disorders: No CVA: No COPD: No CHF: No DVT: No Dementia: No Diabetes: Yes Dialysis: Yes (, Th, Sat) GI Disorders: Yes Disorders: No HTN: Yes Hypercholesterolemia: No Liver Disease: No Seizures: No Thyroid Disease: No - Surgical History Abdominal Surgery: Yes (HERNIA REPAIR) Appendectomy: No Cardiac Surgery: No Cholecystectomy: No Lung Surgery: No Neurologic Surgery: No Orthopedic Surgery: Yes - Immunization History Immunization Up to Date: Yes - Psycho Social/Smoking Cessation Hx Smoking History: Unknown if ever smoked Have you smoked in the past 12 months: No If you are a former smoker, when did you quit?: 25 YRS Hx Alcohol Use: No Drug/Substance Use Hx: No Substance Use Type: None Hx Substance Use Treatment: No <Geri Rahman - Last Filed: 12/27/19 11:21> <Jonh Finley - Last Filed: 12/27/19 11:45> - Past Medical History Allergies/Adverse Reactions: Allergies Allergy/AdvReac Type Severity Reaction Status Date / Time corn [[place]] Allergy "ITCHY ALL Verified 10/04/19 14:48 OVER" No Known Drug Allergies Allergy Verified 12/27/19 10:48 Home Medications: Ambulatory Orders Insulin Glargine,Hum.rec.anlog [Lantus Solostar PEN -] 7.5 units SQ DAILY #30 syringe 11/30/17 Ranolazine [Ranexa] 500 mg PO BID #60 tab.er.12h 12/10/17 Simvastatin [Zocor -] 20 mg PO HS #30 tablet 12/10/17 Insulin (Levemir) [Levemir Vial] 7.5 units SQ HS #0 ml 12/15/17 Losartan Potassium [Cozaar -] 100 mg PO DAILY 03/02/18 Aspirin [ASA -] 81 mg PO DAILY 05/09/18 Donepezil HCl [Aricept -] 5 mg PO HS 05/10/18 Sevelamer HCl [Renagel] 800 mg PO AC 05/10/18 *Physical Exam - Vital Signs Last Vital Signs Temp Pulse Resp BP Pulse Ox 73 20 180/55 H 100 12/27/19 09:40 12/27/19 09:40 12/27/19 09:40 12/27/19 09:40 <Geri Rahman - Last Filed: 12/27/19 11:21> - Vital Signs Last Vital Signs Temp Pulse Resp BP Pulse Ox 79 12 171/60 H 100 12/27/19 11:10 12/27/19 11:10 12/27/19 11:10 12/27/19 11:10 <Jonh Finley - Last Filed: 12/27/19 11:45> Procedures - Intubation Time of Intubation: 10:00 Intubation Method: orotracheal Blade used: Mac Tube Size (Fr): 7.5 Medications: Etomidate, Rocuronium Tube position @ lip (cm): 23 Tube position confirmed by: Direct visualization, CO2 detector, Chest x-ray, Breath sounds Breath Sounds after Intubation: equal Intubation Complications: no complications Post Intubation Xray: Yes <Jonh Finley - Last Filed: 12/27/19 11:45> ED Treatment Course - LABORATORY CBC & Chemistry Diagram: 12/27/19 09:46 12/27/19 09:46 <Geri Rahman - Last Filed: 12/27/19 11:21> - LABORATORY CBC & Chemistry Diagram: 12/27/19 09:46 12/27/19 09:46 - ADDITIONAL ORDERS Additional order review: Laboratory Results 12/27/19 12/27/19 12/27/19 09:46 09:46 09:46 PT with INR 12.70 INR 1.08 PTT (Actin FS) 35.8 Sodium 129 L Potassium 4.7 Chloride 95 L Carbon Dioxide 24 Anion Gap 10 BUN 58.0 H Creatinine 8.5 H* Est GFR (CKD-EPI)AfAm 6.04 Est GFR (CKD-EPI)NonAf 5.21 Random Glucose 163 H Calcium 10.0 Total Bilirubin 0.6 AST 29 ALT 20 Alkaline Phosphatase 168 H Creatine Kinase 57 Troponin I < 0.02 Total Protein 8.2 Albumin 3.0 L Triglycerides 108 Cholesterol 152 Total LDL Cholesterol 81 HDL Cholesterol 51 12/27/19 09:46 RBC 2.49 L MCV 102.0 H MCHC 32.8 RDW 14.2 D MPV 9.2 Neutrophils % 67.6 Lymphocytes % 18.3 Monocytes % 13.2 H Eosinophils % 0.3 D Basophils % 0.6 - Medications Given in the ED: ED Medications Discontinued Medications Generic Name Dose Route Start Last Admin Trade Name Freq PRN Reason Stop Dose Admin Etomidate 20 mg 12/27/19 10:19 12/27/19 10:20 Amidate - IVPUSH 12/27/19 10:20 20 mg NOW ONE Administration Levetiracetam 1,000 mg 12/27/19 11:02 12/27/19 11:14 Keppra Injection - IVPB 12/27/19 11:03 1,000 mg ONCE ONE Administration Lorazepam 2 mg 12/27/19 10:45 12/27/19 09:35 Ativan Injection - IVPUSH 12/27/19 10:46 2 mg ONCE ONE Administration Rocuronium [place] 50 mg 12/27/19 10:19 12/27/19 10:20 Zemuron - IV 12/27/19 10:20 50 mg ONCE ONE Administration <Jonh Finley - Last Filed: 12/27/19 11:45> Medical Decision Making - Medical Decision Making 12/27/19 10:38 84yo M hx ESRD on dialysis MWF (last dialysis Thursday, supposed to go today but did not), dementia (baseline converses normally, moves all extremities, unknown ambulation), HTN, HLD, DM, no prior seizure disorder, not on AC, BIBA from [facility] for AMS, lethargy, "shaking", and L-sided weakness, LKN 0830 today. Per EMS, fingerstick 210, BP 150s/70, VSS. Actively seizing upon initial assessment, generalized convulsions, 2mg Ativan given, <2min seizure. ROS: unable to obtain 2/2 AMS PE: Gen: Responsive to verbal, moaning HEENT: PERRL miosis, EOMI, MMM, NCAT. No conjunctival pallor. Sclera are non- icteric. Oropharynx is clear, missing upper teeth CV: Regular rate and rhythm. No murmurs, rubs, or gallops. PULM: No resp distress. CTAB, no wheezes, rales, or rhonchi. ABD: soft, NT/ND BACK: No TTP of c/t/l-spine. No step-offs or deformities. MSK: No bony deformities. 2+ pulses in all extremities. NEURO: PERRL, responsive to verbal only, moaning, squeezes R hand and able to lift R arm briefly off bed, not moving L arm, moving b/l legs horizontally not against gravity. NIHSS 24 EXTREMITIES: No cyanosis. No clubbing. No edema. PSYCH: Unable to assess SKIN: Warm and dry. Normal capillary refill. No rashes. No jaundice. NIHSS 24 upon initial assessment. No TPA due to seizure and hemorrhage. 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 Etomidate 20, Rocuronium 50, pt intubated successfully, confirmed by CXR, placed on ventilator, started propofol drip. NG tube placed. VSS, 155/55 -Labs -EKG: NSR, 79bpm, LAD, QTc 506ms, nonspecific intraventricular block, no TWIs, no e/o acute ischemia -CXR: ETT and NG tube in place. Elevated L hemidiaphragm w/L base changes. LUQ clips. -CTH -1g Keppra -NSGY consult placed - pending call back -Gill -Transfer [facility] Spoke with Mihir CUMMINS - requested Kesabra prior to transfer, text [phone] and correct if coagulopathy. Accepted for transfer by ER Dr Franklin Accepted for transfer [facility]. 12/27/19 11:21 Transport here for pt. <Geri Rahman - Last Filed: 12/27/19 11:21> Discharge - Discharge Information Problems reviewed: Yes - Admission No <Geri Rahman - Last Filed: 12/27/19 11:21> <Jonh Finley - Last Filed: 12/27/19 11:45> - Discharge Information Clinical Impression/Diagnosis: Seizure Condition: Critical Disposition: TRANSFER ACUTE CARE/OTHER HOSP - Follow up/Referral Referrals: Lisa Simmons MD [Primary Care Provider] - - Patient Discharge Instructions - Post Discharge Activity
[2019-12-27] MEDS ORDERED: PROPOFOL 1,000,000 MCG/100 ML VIAL IVPB SCH (10:30)
[2019-12-27 10:47] LABS: CHOLESTEROL 152 mg/dL (50-200); HDL CHOLESTEROL 51 mg/dL (40-60); INR 1.08 (0.83-1.09); LDL CHOLESTEROL (ONLY SJRH) 81 mg/dL (5-100); PROTHROMBIN TIME (PATIENT) 12.7 SEC (9.7-13.0); TRIGLYCERIDES 108 mg/dL (0-150)
[2019-12-27 10:48] VITALS: BMI 18.9
[2019-12-27 10:49] LABS: ACTIVATED PTT 35.8 SECONDS (25.2-36.5)
[2019-12-27] MEDS ORDERED: levETIRAcetam 500 MG/5 ML INJECTION VIAL IVPB ONE ×2 (11:02→11:06)
[2019-12-27 11:10] LABS: ALK PHOS 168 U/L (45-117); ANION GAP 10 MMOL/L (8-16); BILIRUBIN,TOTAL 0.6 mg/dL (0.2-1); CHLORIDE 95 mmol/L (98-107); CO2 24 mmol/L (21-32); GLUCOSE,RANDOM 163 mg/dL (74-106); POTASSIUM 4.7 mmol/L (3.5-5.1); SGOT/AST 29 U/L (15-37); SGPT/ALT 20 U/L (13-61); SODIUM 129 mmol/L (136-145); TOT PROT 8.2 g/dl (6.4-8.2)
[2019-12-27 11:22] VITALS: BP 171/60; PULSE 79
[2019-12-27 11:30] LABS: CREATININE 8.5 mg/dL (0.55-1.3)
--- NOTE | 2019-12-27 12:41 | EKG ---
Test Reason : Blood Pressure : / mmHG Vent. Rate : 079 BPM Atrial Rate : 079 BPM P-R Int : 188 ms QRS Dur : 140 ms QT Int : 442 ms P-R-T Axes : 072 -32 047 degrees QTc Int : 506 ms NORMAL SINUS RHYTHM LEFT AXIS DEVIATION NON-SPECIFIC INTRA-VENTRICULAR CONDUCTION BLOCK ABNORMAL ECG WHEN COMPARED WITH ECG OF 04-OCT-2019 17:06, T WAVE INVERSION NO LONGER EVIDENT IN LATERAL LEADS Confirmed by MD Fede, Pollo ([id number]) on 12/27/2019 12:41:23 PM Referred By: Confirmed By:Pollo Mistry MD
== END 2019-12-27 11:51 | disposition short-term general hospital (02) ==
LOC: JER 09:26
PROC: 0BH17EZ Insertion of Endotracheal Airway into Trachea, Via Natural or Artificial Opening (ICD-10-PCS; principal; 2019-12-27)
PROC: 5A1935Z Respiratory Ventilation, Less than 24 Consecutive Hours (ICD-10-PCS; 2019-12-27)
PROC: 0T9B70Z Drainage of Bladder with Drainage Device, Via Natural or Artificial Opening (ICD-10-PCS; 2019-12-27)
PROC: 0D9670Z Drainage of Stomach with Drainage Device, Via Natural or Artificial Opening (ICD-10-PCS; 2019-12-27)
PROC: 3E033NZ Introduction of Analgesics, Hypnotics, Sedatives into Peripheral Vein, Percutaneous Approach (ICD-10-PCS; 2019-12-27)
PROC: 3E033GC Introduction of Other Therapeutic Substance into Peripheral Vein, Percutaneous Approach (ICD-10-PCS; 2019-12-27)
PROC: 3E033FZ Introduction of Intracirculatory Anesthetic into Peripheral Vein, Percutaneous Approach (ICD-10-PCS; 2019-12-27)
DX: R56.9 Unspecified convulsions (principal); I62.9 Nontraumatic intracranial hemorrhage, unspecified; I12.0 Hypertensive chronic kidney disease with stage 5 chronic kidney disease or end stage renal disease; E11.22 Type 2 diabetes mellitus with diabetic chronic kidney disease; N18.6 End stage renal disease; N17.8 Other acute kidney failure; Z99.2 Dependence on renal dialysis; Z79.4 Long term (current) use of insulin; E78.5 Hyperlipidemia, unspecified; F03.90 Unspecified dementia, unspecified severity, without behavioral disturbance, psychotic disturbance, mood disturbance, and anxiety; I63.89 Other cerebral infarction; R29.724 NIHSS score 24; Z79.82 Long term (current) use of aspirin
CPT/HCPCS: 31500; 36415; 51701; 70450-TC; 71045-TC-FY; 80053; 80061; 82550; 83721; 84484; 85025; 85610; 85730; 93005; 93010; 94002; 96374; 96375; 99285-25

== ENCOUNTER 2020-01-07 08:11 | Emergency (ER) | payer OTHER ==
--- NOTE | 2020-01-07 09:39 | PDOC ---
History of Present Illness <Shirin Hopkins - Last Filed: 01/07/20 12:12> - General History Source: Patient Exam Limitations: No Limitations - History of Present Illness Initial Comments: Patient has a history of recent Subdural 11 days ago for which he was transferred to [facility] 11 days ago. Patient had an acute on chronic subdural. Betzy Gray is an 84 yo M w a hx of ESRD on dialysis MWF, dementia ( baseline converses normally, moves all extremities), HTN, HLD, DM, no prior seizure disorder, not on AC, BIBA from [facility] for a fall when getting out of bed. He states he was getting up then fell forward and hit his forehead. He denies any LOC. States he does not take aspirin even though the triage forms report he takes 81 mg aspirin daily. He denies pain at the present time. Denies any complaints including chest pain, SOB, or extremity pain. PCP: Lisa Simmons PSH: L nephrectomy (pt states "doctor took it and sold it") Social Hx: [facility] resident. Former smoker, quit 1977 Allergies: [place], NKDA <Maciej Biggs - Last Filed: 01/07/20 12:13> - General Chief Complaint: Injury Stated Complaint: FALL Time Seen by Provider: 01/07/20 09:37 Past History <Shirin Hopkins - Last Filed: 01/07/20 12:12> - Past Medical History Anemia: Yes Asthma: No Cancer: No Cardiac Disorders: No CVA: No COPD: No CHF: No DVT: No Dementia: No Diabetes: Yes Dialysis: Yes (, , Thu) GI Disorders: Yes Disorders: No HTN: Yes Hypercholesterolemia: No Liver Disease: No Seizures: No Thyroid Disease: No - Surgical History Abdominal Surgery: Yes (HERNIA REPAIR) Appendectomy: No Cardiac Surgery: No Cholecystectomy: No Lung Surgery: No Neurologic Surgery: No Orthopedic Surgery: Yes - Immunization History Immunization Up to Date: Yes - Psycho Social/Smoking Cessation Hx Smoking History: Unknown if ever smoked Have you smoked in the past 12 months: No If you are a former smoker, when did you quit?: 25 YRS Hx Alcohol Use: No Drug/Substance Use Hx: No Substance Use Type: None Hx Substance Use Treatment: No <Maciej Biggs - Last Filed: 01/07/20 12:13> - Past Medical History Allergies/Adverse Reactions: Allergies Allergy/AdvReac Type Severity Reaction Status Date / Time corn [[place]] Allergy "ITCHY ALL Verified 10/04/19 14:48 OVER" No Known Drug Allergies Allergy Verified 12/27/19 10:48 Home Medications: Ambulatory Orders Insulin Glargine,Hum.rec.anlog [Lantus Solostar PEN -] 7.5 units SQ DAILY #30 syringe 11/30/17 Ranolazine [Ranexa] 500 mg PO BID #60 tab.er.12h 12/10/17 Simvastatin [Zocor -] 20 mg PO HS #30 tablet 12/10/17 Insulin (Levemir) [Levemir Vial] 7.5 units SQ HS #0 ml 12/15/17 Losartan Potassium [Cozaar -] 100 mg PO DAILY 03/02/18 Aspirin [ASA -] 81 mg PO DAILY 05/09/18 Donepezil HCl [Aricept -] 5 mg PO HS 05/10/18 Sevelamer HCl [Renagel] 800 mg PO AC 05/10/18 Review of Systems - Review of Systems Able to Perform ROS?: Yes Comments:: CONSTITUTIONAL: Absent: fever, no chills, no fatigue EYES: Absent: visual changes ENT: Absent: ear pain, no sore throat CARDIOVASCULAR: Absent: chest pain, no palpitations RESPIRATORY: Absent: cough, no SOB GI: Absent: abdominal pain, no nausea, no vomiting, no constipation, no diarrhea GENITOURINARY: Absent: dysuria, no frequency, no hematuria MUSKULOSKELETAL: Absent: back pain, no arthralgia, no myalgia SKIN: Absent: rash NEURO: Absent: headache <Maciej Biggs - Last Filed: 01/07/20 12:13> *Physical Exam - Vital Signs Last Vital Signs Temp Pulse Resp BP Pulse Ox 97.6 F 58 L 14 142/45 L 100 01/07/20 08:15 01/07/20 08:15 01/07/20 08:15 01/07/20 08:15 01/07/20 08:15 <Shirin Hopkins - Last Filed: 01/07/20 12:12> - Vital Signs Last Vital Signs Temp Pulse Resp BP Pulse Ox 97.6 F 58 L 14 142/45 L 100 01/07/20 08:15 01/07/20 08:15 01/07/20 08:15 01/07/20 08:15 01/07/20 08:15 - Physical Exam GENERAL: Well-appearing, well-nourished. No apparent distress. HEENT: There is a 3 cm linear laceration on his mid forehead which is not bleeding. Normocephalic. PERRL, EOM intact. CARDIOVASCULAR: Normal S1, S2. Regular rate and rhythm. PULMONARY: No evidence of respiratory distress. Lungs clear to auscultation bilaterally. No wheezing, rales or rhonchi. ABDOMEN: Soft, non-distended, non-tender. EXTREMITIES: Normal ROM in all four extremities. SKIN: Warm, dry. No rash NEUROLOGICAL: No focal neurological deficits. <Maciej Biggs - Last Filed: 01/07/20 12:13> Procedures - Laceration/Wound Repair Upper Anterior Medial Head Wound Length: 2.6 to 5.0 cm Wound Explored: clean Wound's Depth, Shape: superficial Irrigated w/ Saline: Yes Betadine Prep: Yes Wound Debrided: minimal Wound Repaired With: Dermabond <Maciej Biggs - Last Filed: 01/07/20 12:13> ED Treatment Course - LABORATORY CBC & Chemistry Diagram: 01/07/20 09:30 01/07/20 09:30 - ADDITIONAL ORDERS Additional order review: Laboratory Results 01/07/20 01/07/20 09:30 09:30 PT with INR 12.50 INR 1.06 PTT (Actin FS) 32.3 Sodium 140 Potassium 3.7 Chloride 100 Carbon Dioxide 28 Anion Gap 11 BUN 38.8 H Creatinine 8.1 H* Est GFR (CKD-EPI)AfAm 6.40 Est GFR (CKD-EPI)NonAf 5.53 Random Glucose 110 H Calcium 8.0 L Total Bilirubin 0.6 AST 26 ALT 22 Alkaline Phosphatase 128 H Total Protein 7.5 Albumin 2.8 L 01/07/20 09:30 RBC 2.48 L MCV 99.9 H MCHC 33.8 RDW 14.7 MPV 9.4 Neutrophils % 61.6 Lymphocytes % 16.4 Monocytes % 18.1 H Eosinophils % 3.1 D Basophils % 0.8 - RADIOLOGY Radiology Studies Ordered: Category Date Time Status CERVICAL SPINE CT W/O CONTR [CT] Stat CT Scan 01/07/20 09:38 Completed <Shirin Hopkins - Last Filed: 01/07/20 12:12> - LABORATORY CBC & Chemistry Diagram: 01/07/20 09:30 01/07/20 09:30 <Maciej Biggs - Last Filed: 01/07/20 12:13> Medical Decision Making - Medical Decision Making Betzy Gray is an 84 yo M w a hx of ESRD on dialysis MWF, dementia ( baseline converses normally, moves all extremities), HTN, HLD, DM, no prior seizure disorder, not on AC, BIBA from [facility] for a fall when getting out of bed. He states he was getting up then fell forward and hit his forehead. He denies any LOC. States he does not take aspirin even though the triage forms report he takes 81 mg aspirin daily. He denies pain at the present time. Denies any complaints including chest pain, SOB, or extremity pain. Vital Signs Temp Pulse Resp BP Pulse Ox 97.6 F 58 L 14 142/45 L 100 01/07/20 08:15 01/07/20 08:15 01/07/20 08:15 01/07/20 08:15 01/07/20 08:15 DDx IBNLT: Brain bleed, arrhythmia, electrolyte/metabolic disturbance, simple laceration Plan: Labs, EKG, CT, laceration repair EKG: Sinus bradycardia rate of 59, LAD, ILBBB, LVH, Non-specific ST and T wave abnormality, QTc 483 - All these changes were present on multiple prior ECG's Labs: Consistent with patient's baseline CT: Right sided chronic subdural hematoma with improvement from last CT. No acute bleed. Lac repair: Fixing with demabond. Dispo: Back to [facility] <Maciej Biggs - Last Filed: 01/07/20 12:13> Discharge <Shirin Hopkins - Last Filed: 01/07/20 12:12> - Discharge Information Problems reviewed: Yes - Admission No <Maciej Biggs - Last Filed: 01/07/20 12:13> - Discharge Information Clinical Impression/Diagnosis: Laceration Fall Qualifiers: Encounter type: initial encounter Qualified Code(s): W19.XXXA - Unspecified fall, initial encounter Condition: Improved Disposition: [facility] - Follow up/Referral Referrals: Lisa Simmons MD [Primary Care Provider] - - Patient Discharge Instructions Patient Printed Discharge Instructions: How to Prevent Falls Additional Instructions: You came into the Er after you fell forward and hit your head. We repaired your laceration. Please come back to the ER immediately with any new or worsening concerns. Please read the attached handout on how to prevent falls. Come back to the ER with any new or worsening concerns. Thank you for coming to the [facility] ER. We hope you feel better soon! Print Language: MALAWIAN - Post Discharge Activity
[2020-01-07 09:49] LABS: BASO % 0.8 % (0-2.0); EOS % 3.1 % (0-4.5); HEMATOCRIT 24.7 % (35.4-49); HEMOGLOBIN 8.4 GM/dL (11.7-16.9); LYMPH % 16.4 % (8-40); MCH 33.8 pg (25.7-33.7); MCHC 33.8 g/dl (32.0-35.9); MEAN CELL VOLUME 99.9 fl (80-96); MEAN PLT VOLUME 9.4 fl (7.5-11.1); MONO % 18.1 % (3.8-10.2); NEUT % 61.6 % (42.8-82.8); PLATELET COUNT 335 K/MM3 (134-434); RBC 2.48 M/mm3 (4.00-5.60); RDW 14.7 % (11.9-15.9); WHITE BLOOD COUNT 12.4 K/mm3 (4.0-10.0)
[2020-01-07 10:04] VITALS: BMI 25.7
[2020-01-07 10:19] LABS: INR 1.06 (0.83-1.09); PROTHROMBIN TIME (PATIENT) 12.5 SEC (9.7-13.0)
[2020-01-07 10:22] LABS: ACTIVATED PTT 32.3 SECONDS (25.2-36.5)
--- NOTE | 2020-01-07 10:26 | PDOC ---
Attending Attestation - Resident Resident Name: Maciej Biggs - ED Attending Attestation I have performed the following: I have examined & evaluated the patient, The case was reviewed & discussed with the resident, I agree w/resident's findings & plan - HPI HPI: 01/07/20 10:24 84 year old male with a history of HTN, HLD, DM, ESRD on dialysis TThS, Alzheimers, recent SDH last week with seizure, not on ASA presenting with unwitnessed fall from [facility] when getting out of bed. He states he was getting up then fell forward and hit his forehead. He denies any LOC. States he does not take aspirin due to last head bleed/sdh. He denies pain at the present time. Denies any complaints including chest pain, SOB, or extremity pain. PCP Dr Rodger Simmons 01/07/20 10:35 01/07/20 12:13 - Physicial Exam PE: 01/07/20 10:25 Physical exam: General: GCS 15 - NAD, well appearing HEENT: +horizontal forehead superficial laceration 4cm, well approximated. also 2 small <1cm vertical linear laceration between brows, nonbleeding. PERRL, EOMI. Airway intact. No battles sign or raccoon eyes. No e/o ocular. Dentition intact. No e/o septal hematoma, nasal bridge stable. Neck: neck supple, no midline C spine tenderness or deformity, ROM intact. No anterior mass or crepitus, trachea midline. Resp: Lungs clear bilaterally Chest: no clavicle or chest wall tenderness or crepitus CVS: RRR, 2+ pulses throughout. Abdomen: Abdomen soft, nontender, nondistended. Back: Back nontender, no midline spinal tenderness along cervical/thoracic/ lumbar spine, FROM, no stepoffs. MSK: Pelvis stable, Extremities symmetric, no focal areas of tenderness or deformities, proximal and distally; no pain on axial loading. FROM in all extrem. Neuro: Alert, oriented appropriately. CN II-XII grossly symmetric and intact. no focal neuro deficits. Sensation and strength intact throughout. speech clear. Skin: intact, normal color and well perfused. +horizontal forehead superficial laceration 4cm, well approximated. also 2 small <1cm vertical linear laceration between brows, nonbleeding. 01/07/20 10:26 01/07/20 11:27 - Medical Decision Making 01/07/20 10:25 Vital Signs Temp Pulse Resp BP Pulse Ox 97.6 F 58 L 14 142/45 L 100 01/07/20 08:15 01/07/20 08:15 01/07/20 08:15 01/07/20 08:15 01/07/20 08:15 Trauma ddx: ICH, SDH/ EDH, skull fx, C spine injury/strain, extremity sprain/ fracture, pelvis fracture. MSK contusion, msk spasms. Rib fractures. Clinically doubt Intra abdominal and thoracic injuries/bleed Trauma Neg: No evidence of skull fracture, intracranial bleed, dental trauma, cervical, thoracic, or vertebral fracture or subluxation, no suspicion of thoracic, abdominal, pelvic or extremity injury by exam. Vital signs reviewed, mildly hypertensive but otherwise unremarkable. Patient is no distress and no complaints 01/07/20 11:19 labs and lytes wnl, baseline anemia. ESRD with baseline Cr function Right-sided chronic subdural hematoma with mild improvement from previous as a hematoma has decreased in density in size compared to the prior studies.. No acute fracture is noted. C-spine is negative for acute fractures or subluxation, degenerative changes is noted. pt otherwise asymptomatic wound care and eyebrow lac repair tetanus updated today dermabond to the superficial, well approximated wounds to his forehead. no complications. DC back to [facility], stable for discharge, return precautions, fall safety precautions/prevention 01/07/20 12:16 Heart Score/ECG Review #1 ECG reviewed & interpreted by me at: 08:35 General ECG Interpretation: Sinus Rhythm, Normal Rate, Normal Intervals Compared to previous ECG there are: No significant change 01/07/20 11:25 EKG sinus bradycardia 59 bpm, no interval abnormalities, narrow QRS, ST and T wave segments and morphology normal. Nonspecific T wave abnormalities
[2020-01-07 10:27] LABS: ALBUMIN 2.8 g/dl (3.4-5.0); BILIRUBIN,TOTAL 0.6 mg/dL (0.2-1); BLOOD UREA NITROGEN 38.8 mg/dL (7-18); POTASSIUM 3.7 mmol/L (3.5-5.1); TOT PROT 7.5 g/dl (6.4-8.2)
[2020-01-07 10:30] LABS: CREATININE 8.1 mg/dL (0.55-1.3)
[2020-01-07] MEDS ORDERED: DIPHTH,PERTUSS(ACELL),TET 0.5 ML DISP.SYRIN IM ONE ×2 (11:24→12:24)
[2020-01-07 13:09] VITALS: BP 148/58; PULSE 61; TEMP 97.1
--- NOTE | 2020-01-07 13:21 | EKG ---
Test Reason : Blood Pressure : / mmHG Vent. Rate : 059 BPM Atrial Rate : 059 BPM P-R Int : 150 ms QRS Dur : 114 ms QT Int : 488 ms P-R-T Axes : 060 -35 002 degrees QTc Int : 483 ms SINUS BRADYCARDIA LEFT AXIS DEVIATION INCOMPLETE LEFT BUNDLE BRANCH BLOCK MINIMAL VOLTAGE CRITERIA FOR LVH, MAY BE NORMAL VARIANT NONSPECIFIC ST AND T WAVE ABNORMALITY PROLONGED QT ABNORMAL ECG Confirmed by JOAN BRYSON MD ([id number]) on 01/07/2020 1:21:12 PM Referred By: Confirmed By:JOAN BRYSON MD
== END 2020-01-07 13:14 ==
LOC: JER 08:11
PROC: 0HQ1XZZ Repair Face Skin, External Approach (ICD-10-PCS; principal; 2020-01-07)
PROC: 3E0234Z Introduction of Serum, Toxoid and Vaccine into Muscle, Percutaneous Approach (ICD-10-PCS; 2020-01-07)
DX: S01.81XA Laceration without foreign body of other part of head, initial encounter (principal); W06.XXXA Fall from bed, initial encounter; Y93.89 Activity, other specified; Y92.122 Bedroom in nursing home as the place of occurrence of the external cause; Y99.8 Other external cause status; I12.0 Hypertensive chronic kidney disease with stage 5 chronic kidney disease or end stage renal disease; E11.22 Type 2 diabetes mellitus with diabetic chronic kidney disease; N18.6 End stage renal disease; N17.8 Other acute kidney failure; Z99.2 Dependence on renal dialysis; Z79.4 Long term (current) use of insulin; E78.5 Hyperlipidemia, unspecified; F03.90 Unspecified dementia, unspecified severity, without behavioral disturbance, psychotic disturbance, mood disturbance, and anxiety; D64.9 Anemia, unspecified; Z86.79 Personal history of other diseases of the circulatory system; Z90.5 Acquired absence of kidney
CPT/HCPCS: 12013; 36415; 70450-TC; 72125-TC; 80053; 85025; 85610; 85730; 90471; 90715; 93005; 93010; 99285-25